=== PATIENT | female | born 1950 | race Caucasian/White ===

== ENCOUNTER → 2018-04-22 16:07 | Outpatient (CLI) | payer MEDICARE, OTHER, SELFPAY ==
[2018-04-22 17:21] LABS: Absolute Lymphocyte Count 0.64 X10^3/ul (0.83-4.51); Absolute Neutrophil Count 5.6 X10^3/uL (2.0-7.7); Basophil# 0.05 X10^3/uL; Basophil% 0.7 % (0-1); Eosinophils% 1.4 % (0-5); Hematocrit 37.4 % (37-47); Hemoglobin 12.2 g/dl (12.0-15.0); Lymphocyte # 0.64 X10^3/ul (4.0); Lymphocyte % 9.1 % (19-41); Mean Corp Hgb Conc 32.6 g/gl (32-36); Mean Corpuscular Hgb 30.8 pg (27.0-32.0); Mean Corpuscular Volume 94.4 fL (81-99); Mean Platelet Vol. 11.1 fl (6.2-12.0); Monocyte# 0.67 X10^3/uL; Monocyte% 9.5 % (0-10); Neutrophil # 5.55 X10^3/uL (2.7-7.7); Neutrophil % 79.2 % (47-70); POSITIVE COUNT NO; POSITIVE DIFFERENTIAL NO; POSITIVE MORPHOLOGY NO; Platelet Count 276 K/mm3 (150-450); RBC Distribution Width CV 14.3 % (11.6-14.6); RBC Distribution Width SD 47.9 fl (35.1-43.9); Red Blood Count 3.96 M/mm3 (4.2-5.4)
[2018-04-22 17:40] LABS: Anion Gap 4 (5-15); BUN 21 mg/dL (7-18); BUN/Creat Ratio 16.9 RATIO (10-20); Chloride 106 mmol/L (98-107); Creatinine, Serum 1.24 mg/dL (0.55-1.02); EST Glomerular Filtration Rate 46 mL/min (>60); Est Glom Filt Rate - Afr Amer 55 mL/min (>60); Glucose 89 mg/dL (74-106); Potassium 4.7 mmol/L (3.5-5.1); Sodium Level 138 mmol/L (136-145); Thyroid Stim Hormone (TSH) 1.61 uIU/mL (0.358-3.74)
== END ==
PROVIDERS: Visit Provider Family Medicine
DX: R42 Dizziness and giddiness (principal); I95.9 Hypotension, unspecified
CPT/HCPCS: 36415; 80048; 84439; 84443; 85025

== ENCOUNTER → 2019-05-31 15:59 | Outpatient (CLI) | payer MEDICARE, OTHER, SELFPAY ==
[2019-05-31 17:52] LABS: Absolute Lymphocyte Count 0.73 X10^3/uL (0.83-4.51); Absolute Neutrophil Count 5.3 X10^3/uL (2.0-7.7); Basophil# 0.06 X10^3/uL; Basophil% 0.9 % (0-1); Eosinophil# 0.18 X10^3/uL; Eosinophils% 2.6 % (0-5); Hematocrit 37.5 % (37-47); Hemoglobin 11.9 g/dL (12.0-15.0); Lymphocyte # 0.73 X10^3/ul (4.0); Lymphocyte % 10.5 % (19-41); Mean Corp Hgb Conc 31.7 g/dL (32-36); Mean Corpuscular Hgb 30.2 pg (27.0-32.0); Mean Corpuscular Volume 95.2 fL (81-99); Mean Platelet Vol. 10.8 fl (6.2-12.0); Monocyte# 0.63 X10^3/uL; Monocyte% 9.1 % (0-10); NRBC Flagged by Analyzer 0 % (0-5); Neutrophil # 5.32 X10^3/uL (2.7-7.7); Neutrophil % 76.6 % (47-70); Platelet Count 260 K/mm3 (150-450); RBC Distribution Width CV 14.3 % (11.6-14.6); RBC Distribution Width SD 49.9 fl (35.1-43.9); Red Blood Count 3.94 M/mm3 (4.2-5.4); White Blood Count 6.9 K/mm3 (4.4-11.0)
[2019-05-31 18:17] LABS: BNP,B-Type NATRIURETIC PEPTIDE 86.5 pg/mL (0-100)
[2019-05-31 18:18] LABS: AST(SGOT) 17 U/L (15-37); Alanine Aminotransfer ALT/SGPT 14 U/L (13-56); Albumin, Serum 3.5 g/dL (3.2-5.0); Alkaline Phosphatase 76 U/L (45-117); Anion Gap 6 (5-15); BUN 28 mg/dL (7-18); BUN/Creat Ratio 19.7 RATIO (10-20); Chloride 107 mmol/L (98-107); Creatinine, Serum 1.42 mg/dL (0.55-1.02); EST Glomerular Filtration Rate 39 mL/min (>60); Est Glom Filt Rate - Afr Amer 47 mL/min (>60); Globulin 3.4 g/dL (2.2-4.2); Glucose 85 mg/dL (74-106); Magnesium 2.5 mg/dL (1.6-2.6); Potassium 4.4 mmol/L (3.5-5.1); Protein, Total 6.9 g/dL (6.4-8.2); Sodium Level 138 mmol/L (136-145); T4 Free Direct 1.01 ng/dL (0.76-1.46)
== END ==
PROVIDERS: Family Provider Family Medicine; PCP Family Medicine; Referring Provider Family Medicine; Visit Provider Family Medicine
DX: R55 Syncope and collapse (principal); R53.83 Other fatigue; R06.00 Dyspnea, unspecified
CPT/HCPCS: 36415; 80053; 83735; 83880; 84439; 84443; 85025

== ENCOUNTER → 2019-07-14 15:22 | Outpatient (CLI) | payer MEDICARE, OTHER, SELFPAY ==
--- NOTE | 2019-07-14 15:35 | RAD_ITS ---
STUDY: X-RAY CHEST REASON FOR EXAM: Female, 69 years old. Shortness of breath and dizziness TECHNIQUE: PA and lateral views of the chest. COMPARISON: None. FINDINGS: There is a tiny calcified granuloma of the right mid lung field. There is no demonstrated pleural abnormality. Normal size heart. Normal mediastinum and maurice. Normal visualized pulmonary arteries. Normal visualized aortic arch and descending thoracic aorta. Normal visualized thoracic spine. Normal visualized ribs, clavicles, and shoulders. There is no demonstrated abnormality of the visualized soft tissue structures of the upper abdomen. RAD/Chest PA and Lateral IMPRESSION: Tiny calcified granuloma the right midlung field. No acute cardiopulmonary disease process is seen. Electronically Signed: Jaime Burk MD at 16:03 EDT , Service support ,
[2019-07-14 17:01] LABS: Anion Gap 5 (5-15); BUN 20 mg/dL (7-18); Calcium,Total 8.8 mg/dL (8.5-10.1); Chloride 107 mmol/L (98-107); Creatinine, Serum 1.25 mg/dL (0.55-1.02); EST Glomerular Filtration Rate 45 mL/min (>60); Est Glom Filt Rate - Afr Amer 54 mL/min (>60); Glucose 81 mg/dL (74-106); Potassium 4.3 mmol/L (3.5-5.1); Sodium Level 142 mmol/L (136-145)
== END ==
PROVIDERS: Family Provider Family Medicine; PCP Family Medicine; Referring Provider Family Medicine; Visit Provider Family Medicine
DX: N18.3 Chronic kidney disease, stage 3 (moderate) (principal); R06.00 Dyspnea, unspecified
CPT/HCPCS: 36415; 71046; 80048

== ENCOUNTER → 2019-07-27 13:21 | Outpatient (CLI) | payer MEDICARE, OTHER, SELFPAY ==
[2019-07-25 13:54] VITALS: BMI 42.8
[2019-07-27 16:01] LABS: AST(SGOT) 18 U/L (15-37); Alanine Aminotransfer ALT/SGPT 14 U/L (13-56); Albumin, Serum 3.4 g/dL (3.2-5.0); Alkaline Phosphatase 73 U/L (45-117); Bilirubin, Direct 0.12 mg/dL (0.00-0.30); Cholesterol 236 mg/dL (200); Globulin 3.3 g/dL (2.2-4.2); High Density Lipoprotein 82 mg/dL; Protein, Total 6.7 g/dL (6.4-8.2); Triglycerides 109 mg/dL; Very Low Density Lipoprotein 22 mg/dL (5-40)
== END ==
PROVIDERS: Family Provider Family Medicine; PCP Family Medicine; Referring Provider Internal Medicine Cardiovascular Disease; Visit Provider Internal Medicine Cardiovascular Disease
DX: Z13.220 Encounter for screening for lipoid disorders (principal)
CPT/HCPCS: 36415; 80061; 80076

== ENCOUNTER → 2019-08-08 14:49 | Outpatient (CLI) | payer MEDICARE, OTHER, SELFPAY ==
[2019-07-25 13:54] VITALS: BMI 42.8
--- NOTE | 2019-08-08 14:51 | ECHOD_ITS ---
Reason For Study: Dyspnea/SOB Procedure This was a 2D Doppler, Color Flow transthoracic echocardiogram. The study was technically difficult. Exam performed in department. Left Ventricle Moderate concentric left ventricular hypertrophy. The estimated ejection fraction is 60 %. Stage 1 diastolic dysfunction. No regional wall motion abnormalities noted. Right Ventricle Normal size and thickness. Normal systolic function. Atria Normal left atrium. Normal right atrium. Normal atrial septum. Mitral Valve The mitral valve is structurally normal. No prolapse or stenosis seen. Mild (1+) posteriorly directed mitral valve insufficiency. Tricuspid Valve Normal tricuspid valve. Unable to estimate RV systolic pressure due to insufficient tricuspid regurgitant envelope. Aortic Valve Normal aortic valve. Trisinus/trileaflet aortic valve. Pulmonic Valve The pulmonic valve is not well visualized. Great Vessels Normal aortic root. Normal arch. Normal inferior vena cava. Inferior vena cava collapse with sniff. Pericardium/Pleural No pericardial effusion. MMode/2D Measurements & Calculations LVIDd: 4.2 cm IVSd: 1.6 cm Ao root diam: 3.2 cm LVIDs: 2.8 cm LVPWd: 1.6 cm LA dimension: 3.6 cm RVDd: 2.9 cm FS: 34.0 % LAV(MOD-bp): 34.2 ml LVAd ap4: 29.5 cm2 SV(MOD-sp4): 60.9 ml LAV(MOD-bp) Indexed: 14.8 ml/m2 EDV(MOD-sp4): 94.2 ml LAV(MOD-sp2): 33.4 ml EDV(sp4-el): 97.4 ml LAV(MOD-sp4): 32.2 ml LVAs ap4: 15.5 cm2 ESV(MOD-sp4): 33.2 ml ESV(sp4-el): 33.2 ml EF(MOD-sp4): 64.7 % EF(sp4-el): 65.9 % SV(sp4-el): 64.2 ml LA A4 area: 13.8 cm2 RA A4 area: 14.6 cm2 Time Measurements MV dec time: 0.30 sec Doppler Measurements & Calculations MV A max romel: 93.0 cm/sec Lat Peak E' Romel: 7.1 cm/sec Med Peak E' Romel: 6.4 cm/sec MV V2 max: 92.8 cm/sec MV P1/2t max romel: 75.1 cm/sec Ao V2 max: 122.5 cm/sec MV max P.6 mmHg MV P1/2t: 74.2 msec Ao max P.0 mmHg MV V2 mean: 50.0 cm/sec Ao V2 mean: 78.5 cm/sec MV mean P.2 mmHg MV dec slope: 296.6 cm/sec2 Ao mean P.9 mmHg MV V2 VTI: 28.8 cm MVA(P1/2t): 3.0 cm2 Ao V2 VTI: 23.7 cm LV V1 max: 111.0 cm/sec PA V2 max: 97.3 cm/sec LV V1 max P.9 mmHg LV V1 mean P.1 mmHg LV V1 mean: 66.8 cm/sec LV V1 VTI: 24.4 cm Interpretation Summary Moderate concentric left ventricular hypertrophy. The estimated ejection fraction is 60 %. Stage 1 diastolic dysfunction. Mild (1+) posteriorly directed mitral valve insufficiency. Unable to estimate RV systolic pressure due to insufficient tricuspid regurgitant envelope. Compared to echo report dated 10/23/2015, no appreciable changes noted. Ordering Physician: Benedicto Sheehan Referring Physician: Brayden You Performed By: Sixto Echols RCS
== END ==
PROVIDERS: Family Provider Family Medicine; PCP Family Medicine; Referring Provider Internal Medicine Cardiovascular Disease; Visit Provider Internal Medicine Cardiovascular Disease
DX: R00.2 Palpitations (principal); R06.02 Shortness of breath; R42 Dizziness and giddiness; R53.83 Other fatigue; R55 Syncope and collapse; R06.00 Dyspnea, unspecified
CPT/HCPCS: 93306

== ENCOUNTER → 2019-08-17 12:11 | Outpatient (CLI) | payer MEDICARE, OTHER, SELFPAY ==
[2019-07-25 13:54] VITALS: BMI 42.8
== END ==
PROVIDERS: Family Provider Family Medicine; PCP Family Medicine; Referring Provider Internal Medicine Cardiovascular Disease; Visit Provider Internal Medicine Cardiovascular Disease
DX: R06.00 Dyspnea, unspecified (principal); R06.02 Shortness of breath; R53.83 Other fatigue; R00.2 Palpitations

== ENCOUNTER → 2019-08-31 13:14 | Outpatient (CLI) | payer MEDICARE, OTHER, SELFPAY ==
[2019-07-25 13:54] VITALS: BMI 42.8
== END ==
PROVIDERS: Family Provider Family Medicine; PCP Family Medicine; Referring Provider Internal Medicine Cardiovascular Disease; Visit Provider Internal Medicine Cardiovascular Disease
DX: R06.02 Shortness of breath (principal); Z77.098 Contact with and (suspected) exposure to other hazardous, chiefly nonmedicinal, chemicals

== ENCOUNTER → 2021-02-12 14:52 | Outpatient (CLI) | payer MEDICARE, OTHER, SELFPAY ==
[2021-02-12 14:52] VITALS: BMI 42.8
[2021-02-12 17:55] LABS: Absolute Neutrophil Count 4.5 X10^3/uL (2.0-7.7); Basophil# 0.08 X10^3/uL; Basophil% 1.3 % (0-1); Eosinophil# 0.18 X10^3/uL; Hematocrit 39.9 % (37-47); Hemoglobin 12.7 g/dL (12.0-15.0); Lymphocyte % 11.6 % (19-41); Mean Corp Hgb Conc 31.8 g/dL (32-36); Mean Corpuscular Hgb 30.1 pg (27.0-32.0); Mean Corpuscular Volume 94.5 fL (81-99); Mean Platelet Vol. 11.3 fl (6.2-12.0); Monocyte# 0.51 X10^3/uL; Monocyte% 8.5 % (0-10); NRBC Flagged by Analyzer 0 % (0-5); Neutrophil # 4.54 X10^3/uL (2.7-7.7); Neutrophil % 75.4 % (47-70); Platelet Count 314 K/mm3 (150-450); RBC Distribution Width CV 13.4 % (11.6-14.6); RBC Distribution Width SD 46.2 fl (35.1-43.9); Red Blood Count 4.22 M/mm3 (4.2-5.4)
[2021-02-12 18:12] LABS: Anion Gap 5 (5-15); BUN 21 mg/dL (7-18); BUN/Creat Ratio 17.1 RATIO (10-20); Calcium,Total 9.5 mg/dL (8.5-10.1); Chloride 104 mmol/L (98-107); Creatinine, Serum 1.23 mg/dL (0.55-1.02); EST Glomerular Filtration Rate 46 mL/min (>60); Est Glom Filt Rate - Afr Amer 55 mL/min (>60); Glucose 104 mg/dL (74-106); Potassium 4.3 mmol/L (3.5-5.1); Sodium Level 136 mmol/L (136-145)
== END ==
PROVIDERS: PCP Family Medicine; Referring Provider Family Medicine; Visit Provider Family Medicine
DX: N18.30 Chronic kidney disease, stage 3 unspecified (principal); M19.90 Unspecified osteoarthritis, unspecified site
CPT/HCPCS: 36415; 80048; 85025

== ENCOUNTER → 2021-06-30 15:08 | Outpatient (CLI) | payer MEDICARE, OTHER, SELFPAY ==
[2021-02-12 14:52] VITALS: BMI 42.8
--- NOTE | 2021-06-30 15:09 | BI_ITS ---
MAMMOGRAPHY - BILATERAL SCREENING 3-D TOMOSYNTHESIS REASON FOR EXAM: Female, 71 years old. SCREENING PERTINENT HISTORY: No significant family history. TECHNIQUE: 2-D mammograms and 3-D Tomosynthesis of the breast (s) were performed. CAD was performed. COMPARISON: 08/28/2016 FINDINGS: The breast composition is composed of scattered fibroglandular density. Scattered benign calcifications are seen. 8 mm oval obscured mass in the upper inner quadrant of the right breast and focal compression views regular for further evaluation. Grouped punctate calcifications in the lower inner quadrant of the left breast at posterior depth of magnification views recommended for further evaluation.. No architectural distortion is identified. There is no skin thickening or retraction. There has been no significant change since the prior study. BI/SCRN MAMM (CAD)W/JADEN BILAT IMPRESSION: 1. 8 mm oval obscured mass in the upper inner quadrant of the right breast and focal compression views recommended for further evaluation. 2. Grouped punctate calcifications in the lower inner quadrant of the left breast at posterior depth and magnification views recommended for further evaluation. ASSESSMENT CATEGORY: BIRADS Category 0: Incomplete. Need additional imaging evaluation as above. A letter regarding these results will be sent to the patient by the facility within 30 days. FOLLOW UP RECOMMENDATION: Additional imaging recommended as above. (E) Approximately 10% of breast cancers are not detected by mammography. A normal mammogram should not delay biopsy of a clinically suspicious abnormality. Electronically Signed: Gaston Elise MD at 18:15 EDT Tel , Service support ,
== END ==
PROVIDERS: PCP Family Medicine; Referring Provider Family Medicine; Visit Provider Family Medicine
DX: Z12.31 Encounter for screening mammogram for malignant neoplasm of breast (principal)
CPT/HCPCS: 77063; 77067

== ENCOUNTER → 2021-07-04 13:36 | Outpatient (CLI) | payer MEDICARE, OTHER, SELFPAY ==
--- NOTE | 2021-07-04 13:37 | BI_ITS ---
MAMMOGRAPHY - BILATERAL DIAGNOSTIC REASON FOR EXAM: Female, 71 years old. R BREAST MASS AND LT BREAST CALCIFCATION PERTINENT HISTORY: Non-contributory. TECHNIQUE: Digital examination. Mediolateral oblique (MLO) and craniocaudad (CC) views of both breasts were obtained. CAD: CAD was not performed on this study. COMPARISON: 06/30/2021 FINDINGS: Breast Composition: There are scattered areas of fibroglandular density. Focal compression views confirm a 1 cm oval indistinct equal density mass in the upper inner quadrant of the right breast at mid depth and ultrasound is recommended for further evaluation. Magnification views of the posterior central left breast confirm benign coarse calcifications and degenerating fibroadenoma. No other significant abnormalities are identified. BI/DIAG MAMM W/CAD, BILAT IMPRESSION: Further ultrasonographic evaluation recommended, as described above. ASSESSMENT CATEGORY: BIRADS Category 0: Incomplete. Need additional imaging evaluation. A letter regarding these results will be sent to the patient by the facility within 30 days. FOLLOW UP RECOMMENDATION: Ultrasound Recommended. (I) Approximately 10% of breast cancers are not detected by mammography. A normal mammogram should not delay biopsy of a clinically suspicious abnormality. Electronically Signed: Gaston Elise MD at 14:25 EDT Tel , Service support ,
--- NOTE | 2021-07-04 13:38 | US_ITS ---
STUDY: ULTRASOUND BREAST - RIGHT REASON FOR EXAM: Female, 71 years old. Abnormal screening mammogram. TECHNIQUE: Axial and longitudinal images of the RIGHT breast were performed with a high resolution ultrasound transducer. # OF IMAGES: 17 COMPARISON: Diagnostic mammogram earlier today, screening mammogram 06/30/2021 FINDINGS: RIGHT Breast: Heterogeneous background echotexture. At 1 o''clock, 3 cm in the portal, ultrasound confirms an 8 mm irregular not parallel spiculated hypoechoic mass with posterior shadowing worrisome for invasive ductal carcinoma and corresponding mass mammography and therefore ultrasound-guided vacuum-assisted core biopsy is recommended.: US/Breast Limited Unilateral IMPRESSION: Ultrasound confirms an 8 mm irregular not parallel spiculated hypoechoic mass worrisome for invasive ductal carcinoma and ultrasound-guided vacuum-assisted core biopsy is recommended. ASSESSMENT CATEGORY: BIRADS Category 4: Suspicious - Biopsy Should Be Considered. A letter regarding these results will be sent to the patient by the facility within 30 days. Electronically Signed: Gaston Elise MD at 14:54 EDT Tel , Service support ,
== END ==
PROVIDERS: PCP Family Medicine; Referring Provider Family Medicine; Visit Provider Family Medicine
DX: N63.12 Unspecified lump in the right breast, upper inner quadrant (principal); R92.1 Mammographic calcification found on diagnostic imaging of breast
CPT/HCPCS: 76642; 77066

== ENCOUNTER → 2021-07-17 | Outpatient (CLI) | payer MEDICARE, OTHER, SELFPAY ==
--- NOTE | 2021-07-17 | IMM_PTH ---
PATIENT: TWIN MARIE LOC: [facility] U#:[id number] AGE/SX: 71/F ROOM: RE07/17/[address]: Dr. Gwendolyn Mc MD : 1950 BED: DIS: 07/17/2021 SPEC #: [id number] RECD: 07/21/21 10:43 STATUS: KAROL REQ #: [id number] CHARLEY: 07/17/21 00:[address]: Gwendolyn Mc DEPT: IMMUNOHISTOCHEMISTRY RECD BY: Amrita Scott ENTERED: 07/21/21 10:44 SP TYPE: IMMUNO OTHR DR: Dr. Brayden You MD Tissues: Right breast, NOS Procedures: CALPONIN-1 (add) CK5-6 (add) CK8 (add) PARRA-2 (add) E-CAD (add) HER2 ALLYSSA (add) KI-67 (add) P53 (add) OH (add) P40 (add) ER (initial) PHYSICIAN & [address] [address] SPECIMEN INFORMATION: Tissue Source: Right breast mass, 1 o?clock, 3 cm from nipple Clinical Info: Right breast mass, 1 o?clock, 3 cm from nipple Specimen Number: [id number] CPT code: 12163, 56712 x7, 59736 x3 METHODOLOGY: Deparaffinized sections of prefer/formalin-fixed tissue or PAP/DQ stained slides are incubated with monoclonal/polyclonal antibodies/oligonucleotide probes. Localization is made via biotin free immunoperoxidase method. Appropriate controls are performed and reacted as expected. Results on target cell population are indicated in the following table: RESULTS: ANTIBODY / CLONE RESULT P53 (DO-7) negative Ki-67 (30-9) positive, 2% CK8 (41ebwyK80) positive CK5-6 (D5 & 1684) negative Calponin-1 (VJ084S) negative P40 (BC28) negative E-Cad (ECH-6) positive PARRA-2 (SP21) positive MORPHOMETRIC ANALYSIS ER (clone 6F11) >95%, strong intensity OH (clone 16/1E2) >95%, strong intensity Her-2Neu (clone CB11) 0 The prognostic test for HER2 is performed on formalin-fixed paraffin embedded tissue. A 3+ (positive) staining pattern is defined as intense, homogeneous, complete, circumferential membranous staining in >10% of contiguous tumor cells. A similar weak (2+) staining pattern is interpreted as equivocal. NIKOLAY follow-up testing is recommended for all equivocal cases. Positivity/negativity for ER/OH is reported if > or < 1% of the tumor cells are immuno- reactive, respectively. The ASCO/CAP criteria is used for scoring. Reference: Journal of Clinical Oncology, 2013; 31:6513-4168 & 2010; 16:8824-2185. Duration of fixation: 77 Hrs; Sample Adequate: Yes. These assays have not been validated on decalcified tissues. Results should be interpreted with caution given the likelihood of false negativity on decalcified specimens. These tests were developed and their performance characteristics determined by [facility]. They may not have been cleared or approved by the U.S. Food and Drug Administration. The FDA has determined that such clearance or approval is not necessary. The above immunohistochemical/dualISH markers are ordered and reviewed by the Pathologist. INTERPRETATION: Right breast mass, 1 o?clock, 3 cm from nipple, core biopsy: Invasive ductal carcinoma, nuclear grade 1. Positive for estrogen receptors (favorable prognostic indicator). Positive for progesterone receptors (favorable prognostic indicator). Negative for overexpression of [id number]. AM:bhumi 07/22/2021 Case has been reviewed in consultation with Dr. Billings who concurs with the above diagnosis. IDC:SJ
--- NOTE | 2021-07-17 13:40 | BRBX_PTH ---
PATIENT: TWIN MARIE LOC: [facility] U#:[id number] AGE/SX: 71/F ROOM: RE07/17/[address]: Dr. Gwendolyn Mc MD : 1950 BED: DIS: 07/17/2021 SPEC #: [id number] RECD: 07/17/21 15:30 STATUS: KAROL RERea #: [id number] CHARLEY: 07/17/21 13:[address]: Gwendolyn Mc DEPT: SURGICAL PATHOLOGY RECD BY: Dayana Brasher ENTERED: 07/18/21 11:51 SP TYPE: BREAST BX OTHR DR: Dr. Brayden You MD Tissues: Right breast, NOS Procedures: Surgery Specimen Level IV HEADER OPERATION: Right breast biopsy PRE-OP DIAGNOSIS: Right breast mass 1 o?clock, 3 cm from nipple TISSUE SUBMITTED: Right breast tissue 1 o?clock, 3 cm from nipple MICROSCOPIC DIAGNOSIS Right breast at 1 o?clock, core biopsy: Invasive ductal carcinoma with the following characteristics: Maximal length ? 1.5 millimeters Nuclear grade - 1 See comment. AM:bhumi 07/21/2021 COMMENT Immunohistochemistry ([id number]) supports the above diagnosis. Case has been reviewed in consultation with Dr. Billings who concurs with the above diagnosis. IDC:RICK MICROSCOPIC DESCRIPTION Slides are reviewed. GROSS DESCRIPTION Received in fixative is one container labeled with the patient name and designated right breast. The specimen consists of multiple elongated fragments of giraldo-yellow fibroadipose tissue that in aggregate measure 2 x 0.5 x 0.1 cm. The entire specimen is submitted in one cassette. / RICK:bhumi 07/18/21 TC:0 CPT: 45262
== END | disposition home or self-care (01) ==
LOC: LABSPEC 16:09
PROVIDERS: PCP Family Medicine; Referring Provider Surgery; Visit Provider Surgery
DX: N63.12 Unspecified lump in the right breast, upper inner quadrant (principal)
CPT/HCPCS: 88305; 88341; 88342

== ENCOUNTER 2021-08-15 08:11 | Day surgery (SDC) | payer MEDICARE, OTHER, SELFPAY ==
[2021-08-15] VITALS (7 sets, daily range): BP systolic 120–157; BP diastolic 56–101; PULSE 69–95; RESP 16–20; TEMP 36.2–36.7; O2SAT 96–100; BMI 40.5
--- NOTE | 2021-08-15 | IMM_PTH ---
PATIENT: TWIN MARIE LOC: [facility] [place] U#:[id number] AGE/SX: 71/F ROOM: RE08/15/[address]: Dr. Gwendolyn Mc MD : 1950 BED: DIS: 08/15/2021 SPEC #: [id number] RECD: 08/20/21 13:00 STATUS: KAROL REQ #: [id number] CHARLEY: 08/15/21 00:[address]: Gwendolyn Mc DEPT: IMMUNOHISTOCHEMISTRY RECD BY: Amrita Scott ENTERED: 08/20/21 13:01 SP TYPE: IMMUNO OTHR DR: Dr. Brayden You MD Tissues: A - Axillary lymph node, NOS B - Axillary lymph node, NOS Procedures: CK7 (add) Pankeratin (initial) Pankeratin (add) PHYSICIAN & INSTITUTION [place] [address] SPECIMEN INFORMATION: Tissue Source: A ? Right sentinel lymph node, biopsy, B ? Additional right sentinel lymph node, biopsy Clinical Info: Invasive ductal carcinoma of right breast Specimen Number: [id number] A1, A2, B CPT code: 33107 x2, 59047 x4 METHODOLOGY: Deparaffinized sections of prefer/formalin-fixed tissue or PAP/DQ stained slides are incubated with monoclonal/polyclonal antibodies/oligonucleotide probes. Localization is made via biotin free immunoperoxidase method. Appropriate controls are performed and reacted as expected. Results on target cell population are indicated in the following table: RESULTS: ANTIBODY / CLONE RESULT Block A1 AE1-3 (AE1/AE3/PCK26) negative CK7 (OV-TL12/30) negative Block A AE1-3 (AE1/AE3/PCK26) negative CK7 (OV-TL12/30) negative Block B AE1-3 (AE1/AE3/PCK26) negative CK7 (OV-TL12/30) negative These tests were developed and their performance characteristics determined by [facility]. They may not have been cleared or approved by the U.S. Food and Drug Administration. The FDA has determined that such clearance or approval is not necessary. The above immunohistochemical/dualISH markers are ordered and reviewed by the Pathologist. INTERPRETATION: A. Right sentinel lymph node, biopsy: One lymph node, negative for metastatic carcinoma. B. Additional right sentinel lymph node, biopsy: One lymph node, negative for metastatic carcinoma. RICK:bhumi 08/21/2021
--- NOTE | 2021-08-15 | AXNB_PTH ---
PATIENT: TIWN MARIE [place] [facility] [place][id number] AGE/SX: 71/F ROOM: RE08/15/[address]: Dr. Gwendolyn Mc MD : 1950 BED: DIS: 08/15/2021 SPEC #: [id number] RECD: 08/15/21 11:09 STATUS: KAROL REQ #: [id number] CHARLEY: 08/15/21 00:[address]: Gwendolyn Mc DEPT: SURGICAL PATHOLOGY RECD BY: Amrita Scott ENTERED: 08/15/21 11:50 SP TYPE: AX NODE BX OTHR DR: Dr. Brayden You MD Tissues: A - Axillary lymph node, NOS B - Axillary lymph node, NOS C - Right breast, NOS Procedures: Frozen Section (charge) Frozen Section Add'l ([facility]) Surgery Specimen Level V HEADER OPERATION: Ultrasound-guided wire localized lumpectomy with radiotracer PRE-OP DIAGNOSIS: Invasive ductal carcinoma of right breast TISSUE SUBMITTED: A ? [place] node, B - Additional sentinel node, C ? Right breast lumpectomy FROZEN SECTION DIAGNOSIS A. Right sentinel lymph node, biopsy: One lymph node, negative for metastatic carcinoma. B. Additional right sentinel lymph node, biopsy: One lymph node, negative for metastatic carcinoma. RICK:bhumi 08/15/2021 MICROSCOPIC DIAGNOSIS A. Right sentinel lymph node, biopsy: One lymph node, negative for metastatic carcinoma. See comment. B. Additional right sentinel lymph node, biopsy: One lymph node, negative for metastatic carcinoma. See comment. C. Right breast, lumpectomy with needle localization: Invasive ductal carcinoma. See cancer summary in the comment section. RICK:bhumi 08/20/2021 COMMENT A & B. The lymph nodes are negative for metastatic carcinoma on multiple H & E levels and immuno-histochemical stains for cytokeratins ([id number]). BREAST CANCER SUMMARY Procedure ? lumpectomy with needle localization Specimen laterality ? right Invasive tumor: Tumor site ? 1 o?clock, 3 cm from nipple, as per clinical information Tumor size ? 1 x 1 x 0.8 cm Histologic type ? invasive ductal carcinoma, not otherwise specified Histologic grade ([place] grade): Glandular/tubular differentiation score - 1 Nuclear pleomorphism score - 1 Mitotic count score - 1 Overall grade ? grade 1 (score of 3) Tumor focality ? single focus of invasive carcinoma Ductal carcinoma in situ ? present Negative for extensive intraductal component (EIC). Size (extent) of DCIS ? DCIS comprise <5% of total tumor volume Number of blocks with DCIS ? 2 Number of blocks examined ? 12 Architectural pattern ? cribriform Nuclear grade ? grade 1 Necrosis ? not identified Lobular carcinoma in situ ? not present Tumor extension: Skin ? not present Nipple ? not applicable Skeletal muscle ? no skeletal muscle is present. Margins: Invasive ductal carcinoma and ductal carcinoma in situ are 0.5 cm away from the closest posterior and inferior margin. Regional lymph nodes: Number of lymph nodes examined ? 2 Number of sentinel lymph nodes examined - 2 Number of lymph nodes with macrometastases, micrometastases or isolated tumor cells - 0 Treatment effect ? no known presurgical therapy. Lymphvascular invasion ? not identified Dermal lymphvascular invasion ? not applicable Distant metastasis ? not applicable Additional Pathologic Findings ? intraductal hyperplasia without atypia. Changes consistent with previous site. Ancillary Studies: Previously performed on same tumor ([id number] / [id number]) ER: positive (>95%, strong intensity) [place]: positive (>95%, strong intensity) [id number]: negative (0) Microcalcifications ? present in invasive carcinoma Clinical History - Please make reference to previous specimen ([id number]) right breast at 1 o?clock, core biopsy with diagnosis of ?invasive ductal carcinoma.? PATHOLOGIC STAGE: pT1b pN0(sn) pMx The above summary is in compliance with [employer] [place] [employer] (CAP) Cancer Protocols Checklist and [place] [employer] Committee on Cancer (AJCC), Staging Manual, 8th Ed. This case has been reviewed in consultation with Dr. Arguello who concurs with the above diagnosis. MICROSCOPIC DESCRIPTION Slides are reviewed. GROSS DESCRIPTION A - Received fresh for frozen section diagnosis labeled with the patient's name is a specimen designated sentinel lymph node. The specimen consists of a piece of adipose tissue containing one nodule consistent with lymph node measuring 3 x 2 x 1 cm. The specimen is bisected and submitted entirely for frozen section diagnosis in two cassettes. / : 08/15/21 B - Received fresh for frozen section diagnosis labeled with the patient's name is a specimen designated additional sentinel lymph node. The specimen consists of a piece of adipose tissue containing one nodule consistent with lymph node measuring 1.5 x 1.2 x 1 cm. The specimen is bisected and submitted entirely for frozen section diagnosis in one cassette. / : 08/15/21 C - Received fresh for intraoperative consultation labeled with the patient's name and designated right breast lumpectomy. The specimen consists of a piece of fibroadipose tissue with needle localization measuring 5 x 4.5 x 2 cm. The specimen is oriented as follows: long stitch ? lateral, short stitch ? superior. The specimen is inked as follows: anterior - yellow, posterior - black, superior - blue, inferior - green, medial - red and lateral - orange. Serial sections reveal a giraldo, indurated mass measuring 1 x 1 x 0.8 cm. This mass is 0.5 cm away from the closest inferior margin. This information is conveyed to the surgeon intraoperatively. Sections of the rest of the specimen reveal giraldo-yellow adipose cut surfaces mixed with giraldo-white fibrous areas. The entire specimen is submitted in 12 cassettes. Cassettes 3-6 contains the tumor adjacent tissue. Sections are submitted after additional fixation. / : 08/18/21 TC:0 CPT: 52827 x3, 81404, 16075 x2, 39967
--- NOTE | 2021-08-15 08:30 | NM_ITS ---
PROCEDURE: NUCLEAR MEDICINE Injection [place] Node - RIGHT breast(s). REASON FOR EXAM: Female, 71 years old. Right breast cancer. TECHNIQUE: [place] node localization using radionuclide methods of the RIGHT breast(s) was performed following subcutaneous administration of 1.2 mCi of of sulfur colloid Tc-99m. FINDINGS: 1.2 mCi of technetium labeled sulfur colloid was injected subcutaneously in 4 equal aliquots in the medial periareolar region. NM/Lymph Node Injection Only IMPRESSION: 1.2 mCi of technetium labeled sulfur colloid injected subcutaneously in 4 equal aliquots in the medial periareolar region. Electronically Signed: Jose Carias MD at 11:09 EDT , Service support ,
[2021-08-15] MEDS: Lactated Ringers 1,000 ML 100 ML IV (08:50)
--- NOTE | 2021-08-15 09:28 | PCM.HP.BLA ---
History and Physical Date of Admission: 08/15/21 Date of Service: 08/07/21 Intake Vital Signs 08/07/21 13:30 Height 5 ft 8 in Weight: 262 lb BMI 39.8 BP 149/92 H Blood Pressure Location Rt brachial Position Sitting Respiration 20 H Pulse 90 Pulse Source Monitor Temp 97.4 F L Temp Source Temporal Pulse Oximetry (%) 97 Oxygen Delivery Method room air Intake Visit Reasons: DISCUSS SURGERY Chief Complaint: discuss breast surgery Vacuum Tester Cans Required: No Is patient in pain?: No Allergies amoxicillin Allergy (Verified 08/07/21 13:32) Hives ketorolac tromethamine [From Toradol] Allergy (Verified 08/07/21 13:32) Unknown pentazocine lactate [From Talwin] Allergy (Verified 08/07/21 13:32) Unknown Medications hydrocodone-acetaminophen 1 tab PO TID 10/13/15 [History Confirmed 08/07/21] amitriptyline 25 mg tablet 25 mg PO QHS 07/19/19 [History Confirmed 08/07/21] ibuprofen 200 mg tablet 400 mg PO TID tab 07/25/19 [History Confirmed 08/07/21] PFSH Medical History Breast cancer Dizziness Fatigue Lightheadedness Palpitations Pre-syncope SOB (shortness of breath) on exertion Surgical History History of right breast biopsy (~07/2021) History of total right knee replacement (~08/2004) Family History Mother Uterine cancer Sister Uterine cancer Father , age 43 coronary thrombosis CAD (coronary artery disease) Myocardial infarction Grandmother Diabetes Social History Smoking Status: Never smoker HPI HPI HPI: TWIN MARIE, is a 71 F who presents to the office today for further discussion of surgical options for right invasive ductal carcinoma. Patient is planning to proceed with a lumpectomy. Patient currently on pain meds ibuprofen, Vicodin, Elavil due to back pain. ROS Breast Breast: Yes abnormal mammogram and abnormal US; No left breast lump, right breast lump or nipple discharge Exam Const General: cooperative, healthy appearing, comfortable and no acute distress Neck Neck: normal visual inspection Chest Other: Inspection: Symmetric bilaterally, bilateral breast with fibroglandular tissue, no obvious mass on exam in either breast or nipple discharge or change of overlying skin. biopsy site on the right well healed. Bedside ultrasound able to visualize mass. Resp Effort & Inspection: normal respiratory effort Cardio Rate: regular rate GI Inspection: non-distended Palpation: soft, no guarding and nontender Skin General: no rashes or lesions noted Neuro General: patient oriented x3 Psych Affect: normal affect COVID (Procedure Consent) Procedure Criteria Procedure Criteria: Yes Elective The surgeon/proceduralist and patient have discussed in detail the risk of exposure to and/or potential harm posed by the COVID-19 virus with having a surgery/procedure at this time versus the risk of delaying the surgery/procedure. It is not possible to know either the risk of delaying the surgery or procedure or chance of getting an infection with perfect accuracy, but a joint decision was made between the patient and the surgeon/proceduralist to proceed at this time with the scheduled surgery/procedure as indicated on the consent form. Assessment and Plan Assessment and Plan (1) Invasive ductal carcinoma of right breast: Status: Acute Plan - Dr. Gwendolyn Mc MD: I have given the patient options for initial surgical treatment. Options are the following: lumpectomy followed by radiation therapy vs. mastectomy vs. mastectomy followed by immediate reconstruction. I have described the procedures to the patient. I have described the advantages and disadvantages of the options, but I have told the patient that among the options, the survival rate for breast cancer is the same. I have told the patient that with all the surgeries that a sentinel lymph node biopsy is required. I have described the procedure of sentinel lymph node biopsy to the patient. I have told the patient that if the biopsy is positive for metastatic disease, then a full axillary lymph node dissection is required. I have told the patient that adjuvant chemotherapy will be required should the lymph nodes reveal metastatic disease. Also, a full lymph node dissection will increase the risk for lymphedema, especially if there are 4 or more lymph nodes positive for metastatic disease and radiation to the axilla is also required. I have told the patient the risks of surgery, including but not limited to: infection, bleeding, scar tissue, seroma and persistent seroma, lymph leak, injury to any blood vessels, injury to any nerves (particularly the long thoracic, the thoracodorsal, and the second intercostal brachial and the resultant sequelae), lymphedema, cosmetic deformity, dysesthesias, wound infections, further surgery (especially if margins are not clear), complications of anesthesia, etc. the patient understands. Patient has already met with Dr. Bolden and would like to proceed with a right ultrasound-guided needle localization lumpectomy, right sentinel lymph node biopsy, possible axillary lymph node biopsy. I have answered all the patient?s questions at this point to her satisfaction and she has no further questions. Greater than 50% of direct patient contact was spent in counseling or coordination of care. I spent 25 minutes counseling the patient-surgical options and possible additional treatment after surgery and coordinating care. Gwendolyn Mc M.D. Pager: [phone] [facility] [address] [place] [address], [address] [place] [address] Office: [phone] Coding Level of Care Code Off vis,est,level 4 Diagnoses Invasive ductal carcinoma of right breast C50.911 08/07/21 1411<Electronically signed by Gwendolyn Mc MD>Date Gwendolyn Mc MD
[2021-08-15] MEDS: Isosulfan Blue 1% 5 ML Vial OPERA.SITE (10:30)
--- NOTE | 2021-08-15 11:37 | BI_ITS ---
SURGICAL BREAST SPECIMEN RADIOGRAPH CLINICAL: Document presence of tissue clip marker in biopsy specimen. FINDINGS: Specimen shows presence of tissue clip marker. Electronically Signed: Jose Carias MD at 12:16 EDT , Service support , BI/Breast Biopsy Specimen
--- NOTE | 2021-08-15 11:40 | PCM.OPRPT ---
Report of Operation Date of Procedure: 08/15/21 Pre-Operative Diagnosis: Right breast cancer Post-Operative Diagnosis: Same Surgery/Procedure Performed:: Ultrasound guided wire localization right lumpectomy, sentinel lymph node biopsy with nuclear tracer and Lymphazurin. Description of Surgical Findings:: 2 frozen sentinel nodes negative Surgeon: Gwendolyn Mc Type of Anesthesia: General/Supplemental Anesthesiologist: Bijan Pollack Special Medications: Clindamycin 900 mg IV x1 Specimen's removed: 1. [place] right lymph node, 2. Additional sentinel right lymph node, 3. Right lumpectomy Estimated Blood Loss (mL): < 10 cc Description of Procedure: In radiology the breast tissue was injected with TC-9 9 sulfur colloid. 90 minutes later the patient was taken to the operating room and general anesthesia was induced. 5 cc of Lymphazurin 1% blue dye was injected in the 4 quadrants periareolar along with 10 cc of normal saline. This was massaged gently for 5 minutes. The right breast and axilla were prepped and draped in usual sterile fashion. A timeout was completed verifying correct patient, procedure, site, positioning, special equipment prior to beginning procedure. Handheld gamma probe was used to identify the location of the hottest spot in the axilla. Prior to the incision, the counts were 30. The incision was made in the hot and blue node was identified. The probe was placed in contact with the node in the 10 count was 3840, additional hot and blue node was also found with a 10 count of 1959. The bed of the node measured 8 counts. No additional blue or hot nodes were detected. A curvilinear incision was planned in such a way as to minimize the amount of dissection to reach the mass. Flaps were raised in the location of the wire confirmed. The wire was delivered into the wound. 2 silk [id number] stay suture was placed around the wire and used for traction. Dissection was then taken down circumferentially, taking care to include the entire localization needle and wide margin of grossly normal tissue. The specimen and entire localizing wire were removed. The specimen was oriented and sent to radiology with the localization studies. Confirmation was received that the entire target lesion had been resected. The wound was irrigated. Hemostasis was checked. The breast and axillary wounds were closed with interrupted sutures of 3-0 Vicryl and subcuticular sutures of 4-0 Monocryl and Dermabond. No attempt was made to close the space. A dressing of fluff gauze and supportive bra placed. The patient tolerated procedure well was taken to the postanesthesia care in stable condition. Complications none
--- NOTE | 2021-08-15 11:43 | EX.PCM.DISCH ---
Discharge Instructions Procedure Breast Surgery Diet Discharge Diet: No restrictions Activity Discharge Activity: May Not Drive (for 2-3 days or while taking narcotic pain meds.) May shower in (days): 1 Lifting Restrictions: 10 pounds for 1 week. Dressing / Incision Call your doctor if your incision/area has: Continuous Slow Oozing, Sudden Increased Bleeding, Increased Pain/ Swelling and Increased Redness Call your doctor if you observe: Fever of 101 or Higher Suture Line Care: Avoid Pulling/Pushing and Avoid Pinching/Bending Remove Dressing in: 1 day Additional Dressing/Incision Instructions:: Remove bulky dressing tomorrow. Dermabond/glue will start to fall off in 5 to 7 days, wear good supportive bra initially at night and during the day. Follow Up Care Please Follow Up With: Gwendolyn Mc MD When: Please call [phone] for an appointment to be seen in 2 week. Test Results: Test results from this visit will be discussed in further detail at your follow-up appointment, if applicable. Discharge Plan Admission Attending Provider: Gwendolyn Mc Primary Care Provider: Brayden You Discharge Orders/Prescriptions Prescriptions: Continued amitriptyline 25 mg tablet 25 mg PO QHS RF: 0 ibuprofen 200 mg tablet 400 mg PO TID RF: 0 Changed hydrocodone-acetaminophen 1 EACH tablet 1 tab PO Q6H 3 Days Qty: 9 RF: 0 Referrals / Follow Up: Brayden You MD [Primary Care Provider] - Disposition Disposition (needs filled in before D/C Order can be placed): Home, Self Care
[2021-08-15] MEDS: Bupivacaine Mpf 0.5% 30 ML VIAL (11:46)
== END 2021-08-15 14:00 | disposition home or self-care (01) ==
LOC: SDC 08:12 → AC 08:12
PROVIDERS: PCP Family Medicine; Referring Provider Surgery; Visit Provider Surgery
PROC: 0HBV0ZZ Excision of Bilateral Breast, Open Approach (ICD-10-PCS; CPT 19302; principal; 2021-08-15 09:50)
DX: C50.911 Malignant neoplasm of unspecified site of right female breast (principal); N18.30 Chronic kidney disease, stage 3 unspecified; M19.90 Unspecified osteoarthritis, unspecified site; E66.01 Morbid (severe) obesity due to excess calories; Z68.41 Body mass index [BMI] 40.0-44.9, adult; Z79.1 Long term (current) use of non-steroidal anti-inflammatories (NSAID); Z79.899 Other long term (current) drug therapy; Z96.651 Presence of right artificial knee joint
CPT/HCPCS: 01610; 19301; 38525; 38900; 38792; 76098; 88305; 88307; 88331; 88332; 88341; 88342; A9541; J7120; A4216; J2405; Q9968

== ENCOUNTER → 2021-10-07 14:25 | Outpatient (CLI) | payer MEDICARE, OTHER, SELFPAY ==
--- NOTE | 2021-10-07 14:33 | BD_ITS ---
STUDY: DUAL ENERGY X-RAY ABSORPTIOMETRY / DXA REASON FOR EXAM: Female, 71 years old. SCREENING TECHNIQUE: Bone Mineral Density (BMD) measurements of lumbar spine and bilateral hips were obtained. COMPARISON: None. FINDINGS: Lumbar Spine (L1-L4): g/cm2 (0.753) / T-score (-2.7) / Z-score (-0.4) Findings are suggestive of osteoporosis with a high fracture risk. Left Femur Total: g/cm2 (0.671) / T-score (-2.2) / Z-score (-0.5) Left Femoral Neck: g/cm2 (0.471) / T-score (-3.4) / Z-score (-1.4) Right Femur Total: g/cm2 (0.592) / T-score (-2.9) / Z-score (-1.2) Right Femoral Neck: g/cm2 (0.417) / T-score (-3.9) / Z-score (-1.9) BD/Dexa Bone Density Study IMPRESSION: The patient is considered osteoporotic as outlined below according to World Fito Organization (WHO) criteria with a high fracture risk. Reference Information: The T-score is the number of standard deviations above or below the standard which is normal for young adults at their peak bone mineral density. The World Health Organization (WHO) interprets the T-scores as follows: Above -1 Normal bone density Between -1 and -2.5 Osteopenia Equal to / or below -2.5 Osteoporosis As a practical clinical guideline, osteopenia may be graded as follows: Mild -1 through -1.5 Moderate -1.6 through -2.0 Severe -2.1 through -2.4 The Z-score is the number of standard deviations above or below age-matched controls. A Z-score of less than -1.5 would be considered abnormal. References: 1. NIH Osteoporosis and Related Bone Diseases www osteo.org 2. International Society for Clinical Densitometry www iscd.org 3. National Osteoporosis Foundation www nof.org Electronically Signed: Jose Carias MD at 15:19 EST , Service support ,
== END ==
PROVIDERS: PCP Family Medicine; Referring Provider Internal Medicine Medical Oncology; Visit Provider Internal Medicine Medical Oncology
DX: M81.0 Age-related osteoporosis without current pathological fracture (principal); C50.911 Malignant neoplasm of unspecified site of right female breast; Z78.0 Asymptomatic menopausal state
CPT/HCPCS: 77080

== ENCOUNTER → 2022-07-07 | Outpatient (CLI) | payer MEDICARE, OTHER, SELFPAY ==
--- NOTE | 2022-07-07 14:24 | BI_ITS ---
MAMMOGRAPHY - BILATERAL DIAGNOSTIC REASON FOR EXAM: Female, 72 years old. Treated right breast cancer, compare to prior PERTINENT HISTORY: P/H OF BREAST CA AGE 71 NO CHILDREN F/U CA TREATMENT LEFT STEREO BX 2002 BILAT MOLES MARKED 07/04/21 BILAT DX MAMM= INCOMP 07/04/21 RT U/S= S 07/17/21 RT U/S BX 08/15/21 RT LUMPECOMY W/ RAD TX TECHNIQUE: Digital bilateral breast frederic (3D mammographic acquisition) in the CC and MLO projections. 2-D mediolateral oblique (MLO) and craniocaudad (CC) views of both breasts were obtained. CAD: Full Field Digital Mammography with Computer Added Detection was performed. COMPARISON: None. FINDINGS: Breast Composition: There are scattered areas of fibroglandular density. The previously described 8 mm oval mass in the upper inner quadrant of the right breast is no longer seen. Radiation therapy seeds are noted at the site. No other significant abnormalities are identified. BI/DIAG MAMM W/CAD, BILAT IMPRESSION: Resolved previously described mass in the upper inner quadrant of the right breast. No new lesions are seen. ASSESSMENT CATEGORY: BIRADS Category 3: Probably Benign . Resolved mass in the right breast - Short-Interval Follow-up Suggested. A letter regarding these results will be sent to the patient by the facility within 30 days. Approximately 10% of breast cancers are not detected by mammography. A normal mammogram should not delay biopsy of a clinically suspicious abnormality. Electronically Signed: Juan R Mcgowan MD at 16:34 EDT ,
== END | disposition home or self-care (01) ==
LOC: OPBI 14:18
PROVIDERS: PCP Family Medicine; Visit Provider Student in an Organized Health Care Education/Training Program
DX: C50.911 Malignant neoplasm of unspecified site of right female breast (principal); Z85.3 Personal history of malignant neoplasm of breast
CPT/HCPCS: 77062; 77066; G0279

== ENCOUNTER 2022-09-23 06:49 | Day surgery (SDC) | payer MEDICARE, OTHER, SELFPAY ==
[2022-09-23] MEDS: Lactated Ringers 1,000 ML 15 ML IV (06:55)
[2022-09-23 07:18] VITALS: BP 164/75; PULSE 81; RESP 20; TEMP 36.7; O2SAT 100; BMI 38.9
--- NOTE | 2022-09-23 07:33 | H&P.OPEN ---
HPI - General HPI Narrative TWIN MARIE, is a 72 F who presents for screening colonoscopy. Patient never had previous colonoscopy. Patient denies any family history of colon cancer. Patient denies any chronic abdominal pain/nausea/reflux/vomiting. Patient has bowel movements about every other day denies any blood. [facility] Medical History (Updated 09/21/22 @ 08:56 by Cele Gallagher) Ambulates with cane Arthritis Back pain Breast cancer Cancer Cardiology follow-up encounter Dizziness Easy bruising Fatigue History of echocardiogram History of edema History of pain when walking Lightheadedness Morbid obesity Non-smoker Osteoarthritis Phlebitis Pre-syncope Restless legs Shortness of breath on exertion SOB (shortness of breath) on exertion Vulvar cancer Wears glasses Home Medications amitriptyline 25 mg tablet 25 mg PO QHS 07/19/19 [History Last Taken Unknown] ibuprofen 200 mg tablet 400 mg PO TID 07/25/19 [History Last Taken Unknown] hydrocodone 7.5 mg-acetaminophen 325 mg tablet 1 tab PO PRN PRN Pain 09/21/22 [History Last Taken Unknown] Allergy/AdvReac Type Severity Reaction Status Date / Time amoxicillin Allergy Hives Verified 09/23/22 07:18 ketorolac tromethamine Allergy Unknown Verified 09/23/22 07:18 [From Toradol] pentazocine lactate Allergy Unknown Verified 09/23/22 07:18 [From Talwin] Family History Mother Uterine cancer Sister Uterine cancer Colon polyps Father , age 43 coronary thrombosis CAD (coronary artery disease) Myocardial infarction Grandmother Diabetes Surgical History (Updated 09/21/22 @ 08:56 by Cele Gallagher) H/O vein stripping History of right breast biopsy (~07/2021) History of total hysterectomy (11/2009) History of total right knee replacement (~08/2004) Hx of breast biopsy Hx of breast lump removal Hx of hysterectomy Hx of vein stripping S/P lumpectomy, right breast Social History current occupational status: retired Smoking Status: Never smoker Past Medical/Surgical History Planned Operation Planned Operative Procedure/s: CSCOPE 0A Previous Hospitalizations/Surgeries HX Hospitalizations: No Any Problems With Anesthesia: No You/Your Family Experience Fever (Hyperthermia) With Anes: No Cholinesterase deficiency: No Cardiovascular Hx of Irregular Heartbeat and/or Afib: No Hx Heart Attack: No Hx Congestive Heart Failure: No Hx Hypertension: No Hx Pacemaker: No Respiratory Hx Chronic Obstructive Pulmonary Disease (COPD): No Hx Asthma: No Hx Emphysema: No Hx Sleep Apnea: No Hx Respiratory Tract Infection/Cold (presently): No Do You Snore Loudly (louder than talking or can be heard): No Do You Often Feel Tired/ Fatigued/ Sleepy Dring Daytime?: Yes Has Anyone Observed You Stop Breathing During Sleep?: No Result (for STOP score): Negative Smoking Status: Never smoker Gastrointestinal Hx Gastroesophageal Reflux: No Hx Ulcer: No Neurological Hx Seizures: No Hx Multiple Sclerosis: No Hx Parkinson's Disease: No Hx Head/Neck Injury: No Hx Headaches: No Hx Back Injury/Pain: Yes Does patient have nerve stimulator: No Reproduction : No Psycho/Social Hx Anxiety: Yes Hx Depression: Yes Miscellaneous Hx Cancer: Yes Recent Exposure to Contagious Disease: No Allergies amoxicillin Allergy (Verified 09/23/22 07:18) Hives ketorolac tromethamine [From Toradol] Allergy (Verified 09/23/22 07:18) Unknown pentazocine lactate [From Talwin] Allergy (Verified 09/23/22 07:18) Unknown Discharge Is Pt Admitted From a Longterm, or a Correction: No After D/C, Where Do you Plan to Go: Return Home From the PAT History Number of Risk Factors: 3 Vital Signs Vital Signs Vital Signs: 09/23/22 07:18 09/23/22 07:18 Temperature 98.0 F Temperature Source Temporal Pulse Rate 81 Respiratory Rate 20 H Respiratory Pattern Normal Blood Pressure 164/75 H Blood Pressure Mean 104 Blood Pressure Source Monitor Blood Pressure Position Semi-Fowlers Blood Pressure Location Left Arm Pulse Ox 100 Oxygen Delivery Method Room Air Weight Weight: 255 lb 11.779 oz Body Mass Index (BMI) 38.9 Physical Exam Const alert, oriented x3 and no apparent distress HEENT normocephalic and head/scalp atraumatic Resp normal respiratory effort Cardio regular rate GI soft to palpation and non-tender; Negative for non-distended Palpation: Negative for guarding Extremity no clubbing, cyanosis or edema Neuro CN's II-XII intact bilaterally Psych mental status grossly normal Assessment & Plan Assessment/Plan (1) Encounter for screening for malignant neoplasm of colon: Surgery Risks - Colonoscopy Risks Include but are not Limited To: Risks include but are not limited to: Bleeding, perforation requiring further surgery, inability to complete colonoscopy requiring barium enema.
--- NOTE | 2022-09-23 08:00 | COLBX_PTH ---
PATIENT: TWIN MARIE LOC: EN U#:[id number] AGE/SX: 72/F ROOM: RE09/23/[address]: Dr. Gwendolyn Mc MD : 1950 BED: DIS: 09/23/2022 SPEC #: [id number] RECD: 09/23/22 10:34 STATUS: KAROL RERea #: [id number] CHARLEY: 09/23/22 08:[address]: Gwendolyn Mc DEPT: SURGICAL PATHOLOGY RECD BY: Dayana Brasher ENTERED: 09/23/22 11:13 SP TYPE: COLON BX OTHR DR: Dr. Brayden You MD Tissues: A - Sigmoid colon biopsy B - Rectum, NOS Procedures: Surgery Specimen Level IV HEADER OPERATION: Colonoscopy ? open access (MAC), biopsy PRE-OP DIAGNOSIS: Screening TISSUE SUBMITTED: A ? Sigmoid polyp biopsy, B ? Rectal polyp biopsy MICROSCOPIC DIAGNOSIS A. Sigmoid polyp, biopsy: Fragments of hyperplastic polyp. B. Rectal polyp, biopsy: Fragments of hyperplastic polyp. RICK:bhumi 09/25/2022 MICROSCOPIC DESCRIPTION Slides are reviewed. GROSS DESCRIPTION A - Received in fixative is one container labeled with the patient's name and designated sigmoid polyp biopsy. The specimen consists of two irregular fragments of light giraldo soft tissue that in aggregate measure 0.5 x 0.2 x 0.1 cm. The specimen is totally submitted in one cassette. B - Received in fixative is one container labeled with the patient's name and designated rectal polyp biopsy. The specimen consists of two irregular fragments of light giraldo soft tissue that in aggregate measure 0.5 x 0.2 x 0.1 cm. The specimen is totally submitted in one cassette. / RICK:bhumi 09/23/2022 TC:1 CPT: 71140 x2
[2022-09-23 09:15] VITALS: BP 114/66; BP 164/75; PULSE 69; RESP 16; TEMP 36.2; O2SAT 97
--- NOTE | 2022-09-23 09:15 | OP.CCLET_ITS ---
09/23/2022 Brayden You Re : Colonoscopy procedure for Deana Reyes Dear Avelino This procedure was performed on Friday, September 23, 2022. My impressions and recommendations are as follows: Impressions : - Two less than 5 mm polyps in the rectum and in the sigmoid colon, removed with a cold biopsy forceps. Resected and retrieved. - The examination was otherwise normal. Recommendations : - Discharge patient to home. - Resume previous diet. - Continue present medications. - Await pathology results. - Repeat colonoscopy in 5-10 years for surveillance based on pathology results. My findings are described in the full procedure note, which is enclosed. If I can be of further assistance, please feel free to contact me at Doctor phone number(s): , Work: . Sincerely, MD Gwendolyn Holt MD 09/23/2022 9:14:59 AM This report has been signed electronically.
--- NOTE | 2022-09-23 09:15 | OP.COLON_ITS ---
Patient Name: Deana Reyes Procedure Date: 09/23/2022 8:31 AM Date of : 1950 Age: 72 Procedure: Colonoscopy Indications: Screening for colorectal malignant neoplasm Providers: Gwendolyn Mc MD Medicines: Monitored Anesthesia Care Patient Profile: This is a 72 year old female. Last Colonoscopy: none. The patient's first colonoscopy is today. Complications: No immediate complications. Procedure: Pre-Anesthesia Assessment: - Prior to the procedure, a History and Physical was performed, and patient medications and allergies were reviewed. The patient's tolerance of previous anesthesia was also reviewed. The risks and benefits of the procedure and the sedation options and risks were discussed with the patient. All questions were answered, and informed consent was obtained. Prior Anticoagulants: The patient has taken no previous anticoagulant or antiplatelet agents. ASA Grade Assessment: Per anesthesia. After reviewing the risks and benefits, the patient was deemed in satisfactory condition to undergo the procedure. After I obtained informed consent, the scope was passed under direct vision. Throughout the procedure, the patient's blood pressure, pulse, and oxygen saturations were monitored continuously. The Colonoscope was introduced through the anus and advanced to the cecum, identified by the appendiceal orifice, ileocecal valve and palpation. The colonoscopy was performed without difficulty. The patient tolerated the procedure well. The quality of the bowel preparation was good. Scope In: 8:45:35 AM Scope Withdrawal Time 0 hours 13 minutes 0 seconds Scope Out: 9:09:58 AM Total Procedure Duration Time 0 hours 24 minutes 23 seconds Findings: The perianal and digital rectal examinations were normal. Two sessile polyps were found in the rectum and sigmoid colon. The polyps were less than 5 mm in size. These polyps were removed with a cold biopsy forceps. Resection and retrieval were complete. The exam was otherwise without abnormality. Impression: - Two less than 5 mm polyps in the rectum and in the sigmoid colon, removed with a cold biopsy forceps. Resected and retrieved. - The examination was otherwise normal. Recommendation: - Discharge patient to home. - Resume previous diet. - Continue present medications. - Await pathology results. - Repeat colonoscopy in 5-10 years for surveillance based on pathology results. Procedure Code(s): --- Professional --- 75695, PT, Colonoscopy, flexible; with biopsy, single or multiple Diagnosis Code(s): --- Professional --- Z12.11, Encounter for screening for malignant neoplasm of colon K62.1, Rectal polyp D12.5, Benign neoplasm of sigmoid colon CPT copyright 2017 [employer]. All rights reserved. The codes documented in this report are preliminary and upon head of strategy review may be revised to meet current compliance requirements. MD Gwendolyn Holt MD 09/23/2022 9:14:59 AM This report has been signed electronically. Number of Addenda: 0 Note Initiated On: 09/23/2022 8:31 AM
[2022-09-23 09:20] VITALS: BP 126/71; BP 164/75; PULSE 69; RESP 16; O2SAT 97
[2022-09-23 09:25] VITALS: BP 134/76; BP 164/75; PULSE 65; RESP 16; O2SAT 97
[2022-09-23 09:30] VITALS: BP 102/81; BP 164/75; PULSE 63; RESP 16; TEMP 36.8; O2SAT 97
[2022-09-23 10:24] VITALS: BP 164/75
== END 2022-09-23 10:31 | disposition home or self-care (01) ==
LOC: EN 06:52 → AC 06:53
PROVIDERS: PCP Family Medicine; Referring Provider Family Medicine; Visit Provider Surgery
PROC: 0DJD8ZZ Inspection of Lower Intestinal Tract, Via Natural or Artificial Opening Endoscopic (ICD-10-PCS; CPT 45378; principal; 2022-09-23 07:55)
DX: Z12.11 Encounter for screening for malignant neoplasm of colon (principal); E66.01 Morbid (severe) obesity due to excess calories; K63.5 Polyp of colon; K62.1 Rectal polyp; G25.81 Restless legs syndrome; M19.90 Unspecified osteoarthritis, unspecified site; M47.816 Spondylosis without myelopathy or radiculopathy, lumbar region; Z78.0 Asymptomatic menopausal state; Z79.899 Other long term (current) drug therapy; Z68.38 Body mass index [BMI] 38.0-38.9, adult; Z85.89 Personal history of malignant neoplasm of other organs and systems; Z85.3 Personal history of malignant neoplasm of breast
CPT/HCPCS: 45380; 88305; J7120; J2405

== ENCOUNTER → 2023-01-04 | Outpatient (CLI) | payer MEDICARE, OTHER, SELFPAY ==
--- NOTE | 2023-01-04 14:23 | BI_ITS ---
MAMMOGRAPHY - BILATERAL DIAGNOSTIC REASON FOR EXAM: Female, 72 years old. Six-month follow-up examination. PERTINENT HISTORY: Personal history of breast cancer. Prior right lumpectomy and left stereotactic breast biopsy. TECHNIQUE: Digital bilateral breast frederic (3D mammographic acquisition) in the CC and MLO projections. 2-D mediolateral oblique (MLO) and craniocaudad (CC) views of both breasts were obtained. CAD: Full Field Digital Mammography with Computer Added Detection was performed. COMPARISON: Comparison is made with prior study July 07, 2022 and August 15, 2021. FINDINGS: Breast Composition: There are scattered areas of fibroglandular density. There are no dominant masses or suspicious calcifications. The patient is status post lumpectomy in the deep slightly upper medial aspect of the right breast with postoperative changes. Surgical clips are seen in the right axillary region. No other significant abnormalities are identified. There has been no significant change since the prior study. BI/DIAG MAMM W/CAD, BILAT IMPRESSION: Stable bilateral diagnostic mammogram. One year follow-up recommended. (A) ASSESSMENT CATEGORY: BIRADS Category 2: Benign. A letter regarding these results will be sent to the patient by the facility within 30 days. Approximately 10% of breast cancers are not detected by mammography. A normal mammogram should not delay biopsy of a clinically suspicious abnormality. Electronically Signed: Jose Carias MD at 15:38 EST ,
== END | disposition home or self-care (01) ==
LOC: OPBI 14:21
PROVIDERS: PCP Family Medicine; Visit Provider Student in an Organized Health Care Education/Training Program
DX: R92.8 Other abnormal and inconclusive findings on diagnostic imaging of breast (principal); Z85.3 Personal history of malignant neoplasm of breast
CPT/HCPCS: 77062; 77066; G0279

== ENCOUNTER → 2023-08-02 | Outpatient (CLI) | payer MEDICARE, OTHER, SELFPAY | END | disposition home or self-care (01) | LOC: LABSPEC 15:20 | PROVIDERS: PCP Nurse Practitioner Family; Referring Provider Nurse Practitioner Family; Visit Provider Nurse Practitioner Family | DX: N39.0 Urinary tract infection, site not specified (principal) | CPT/HCPCS: 87086; 87088; 87186 ==

== ENCOUNTER → 2023-10-05 | Outpatient (CLI) | payer MEDICARE, OTHER, SELFPAY ==
[2023-10-05 15:30] LABS: Absolute Lymphocyte Count 0.93 X10^3/uL (0.83-4.51); Absolute Neutrophil Count 3.3 X10^3/uL (2.0-7.7); Basophil# 0.07 X10^3/uL; Basophil% 1.4 % (0-1); Eosinophil# 0.25 X10^3/uL; Hematocrit 38.9 % (37-47); Hemoglobin 12.1 g/dL (12.0-15.0); Lymphocyte # 0.93 X10^3/ul (0.83-4.51); Lymphocyte % 18.6 % (19-41); Mean Corp Hgb Conc 31.1 g/dL (32-36); Mean Corpuscular Hgb 29.9 pg (27.0-32.0); Mean Platelet Vol. 10.9 fl (6.2-12.0); Monocyte# 0.45 X10^3/uL; NRBC Flagged by Analyzer 0 % (0-5); Neutrophil # 3.28 X10^3/uL (2.7-7.7); Neutrophil % 65.8 % (47-70); Platelet Count 298 K/mm3 (150-450); RBC Distribution Width CV 13.2 % (11.6-14.6); RBC Distribution Width SD 47.3 fl (35.1-43.9); Red Blood Count 4.05 M/mm3 (4.2-5.4)
[2023-10-05 16:57] LABS: ALB/GLOB Ratio 1.1 RATIO (0.9-2.4); AST(SGOT) 13 U/L (15-37); Alanine Aminotransfer ALT/SGPT 13 U/L (13-56); Albumin, Serum 3.5 g/dL (3.2-5.0); Alkaline Phosphatase 71 U/L (45-117); Anion Gap 6 (5-15); BUN 26 mg/dL (7-18); BUN/Creat Ratio 22.6 RATIO (10-20); Chloride 105 mmol/L (98-107); Creatinine, Serum 1.15 mg/dL (0.55-1.02); EST Glomerular Filtration Rate 49 mL/min (>60); Est Glom Filt Rate - Afr Amer 59 mL/min (>60); Globulin 3.3 g/dL (2.2-4.2); Glucose 91 mg/dL (74-106); Potassium 4.5 mmol/L (3.5-5.1); Protein, Total 6.8 g/dL (6.4-8.2); Sodium Level 139 mmol/L (136-145)
== END | disposition home or self-care (01) ==
LOC: BFHLAB 13:40
PROVIDERS: PCP Nurse Practitioner Family; Visit Provider Nurse Practitioner Family
DX: I10 Essential (primary) hypertension (principal)
CPT/HCPCS: 36415; 80053; 85025

== ENCOUNTER → 2024-01-11 | Outpatient (CLI) | payer MEDICARE, OTHER, SELFPAY ==
--- NOTE | 2024-01-11 15:08 | BI_ITS ---
MAMMOGRAPHY - BILATERAL SCREENING REASON FOR EXAM: Female, 73 years old. Routine annual screening examination. PERTINENT HISTORY: Personal history of breast cancer. Prior right lumpectomy and radiation. Remote left stereotactic breast biopsy. TECHNIQUE: Digital bilateral breast jaden (3D mammographic acquisition) in the CC and MLO projections. 2-D mediolateral oblique (MLO) and craniocaudad (CC) views of both breasts were obtained. CAD: Full Field Digital Mammography with Computer Added Detection was performed. COMPARISON: Comparison is made with prior study dated January 04, 2023 and July 07, 2022. FINDINGS: Breast Composition: There are scattered areas of fibroglandular density. There are no dominant masses or suspicious calcifications. The patient is status post lumpectomy in the deep slightly upper medial aspect of the right breast with resultant postoperative scarring. Surgical clips are also seen in the right axilla. There are 2 tissue markers seen in the central and medial aspect of the left breast. No other significant abnormalities are identified. There has been no significant change since the prior study. BI/SCRN MAMM (CAD)W/JADEN BILAT IMPRESSION: Stable bilateral screening mammogram. Yearly follow-up mammogram recommended. (A) ASSESSMENT CATEGORY: BIRADS Category 2: Benign. A letter regarding these results will be sent to the patient by the facility within 30 days. Approximately 10% of breast cancers are not detected by mammography. A normal mammogram should not delay biopsy of a clinically suspicious abnormality. [id number] Electronically Signed: Jose Carias MD at 10:28 EDT ,
== END | disposition home or self-care (01) ==
LOC: OPBI 16:11
PROVIDERS: PCP Nurse Practitioner Family; Referring Provider Student in an Organized Health Care Education/Training Program; Visit Provider Student in an Organized Health Care Education/Training Program
DX: Z12.31 Encounter for screening mammogram for malignant neoplasm of breast (principal); Z85.3 Personal history of malignant neoplasm of breast
CPT/HCPCS: 77063; 77067

== ENCOUNTER → 2024-03-13 | Outpatient (CLI) | payer MEDICARE, OTHER, SELFPAY | END | disposition home or self-care (01) | LOC: LABSPEC 16:39 | PROVIDERS: PCP Nurse Practitioner Family; Referring Provider Nurse Practitioner Family; Visit Provider Nurse Practitioner Family | DX: N39.0 Urinary tract infection, site not specified (principal) | CPT/HCPCS: 87077; 87086; 87088; 87186 ==

== ENCOUNTER 2024-09-07 22:57 | Emergency (ER) | payer OTHER, MEDICARE, SELFPAY ==
[2024-09-07 22:57] VITALS: PULSE 63; RESP 16; TEMP 36.9; O2SAT 98; BMI 42.9
[2024-09-07] MEDS: Ondansetron 4 MG/2 ML Vial IV (23:35)
[2024-09-07] MEDS: morphine 8 MG/ML Syringe IV (23:37)
[2024-09-07 23:57] VITALS: BP 105/58; PULSE 65; RESP 16; O2SAT 93
[2024-09-08 00:27] LABS: Prothrombin Time (Protime)PT. 13.6 SECONDS (11.7-14.9)
[2024-09-08 00:29] LABS: Partial Thromboplast Time 22.7 Seconds (24.1-36.2)
[2024-09-08] MEDS: Diphth,Pertuss(Acell),Tet Vac 0.5 ML Vial IM (00:32)
[2024-09-08 00:34] LABS: Anion Gap 5 (5-15); BUN 36 mg/dL (7-18); BUN/Creat Ratio 26.5 RATIO (10-20); Calcium,Total 8.5 mg/dL (8.5-10.1); Chloride 109 mmol/L (98-107); Creatinine, Serum 1.36 mg/dL (0.55-1.02); EST Glomerular Filtration Rate 40 mL/min (>60); Est Glom Filt Rate - Afr Amer 49 mL/min (>60); Estimated Creatinine Clearance 49.74 ml/min; Glucose 109 mg/dL (74-106); Potassium 4.8 mmol/L (3.5-5.1); Sodium Level 141 mmol/L (136-145)
[2024-09-08 00:42] LABS: Absolute Lymphocyte Count 1.33 X10^3/uL (0.83-4.51); Basophil# 0.04 X10^3/uL; Basophil% 0.5 % (0-1); Eosinophil# 0.06 X10^3/uL; Eosinophils% 0.7 % (0-5); Hematocrit 38.2 % (37-47); Hemoglobin 11.8 g/dL (12.0-15.0); Lymphocyte # 1.33 X10^3/ul (0.83-4.51); Lymphocyte % 15.9 % (19-41); Mean Corp Hgb Conc 30.9 g/dL (32-36); Mean Corpuscular Hgb 29.7 pg (27.0-32.0); Mean Corpuscular Volume 96.2 fL (81-99); Mean Platelet Vol. 12.3 fl (6.2-12.0); Monocyte# 0.82 X10^3/uL; Monocyte% 9.8 % (0-10); NRBC Flagged by Analyzer 0 % (0-5); Neutrophil # 5.98 X10^3/uL (2.7-7.7); Neutrophil % 71.5 % (47-70); Platelet Count 305 K/mm3 (150-450); RBC Distribution Width CV 13.5 % (11.6-14.6); Red Blood Count 3.97 M/mm3 (4.2-5.4); White Blood Count 8.4 K/mm3 (4.4-11.0)
[2024-09-08 00:43] LABS: Alcohol, Blood (Medical)-Serum < 3.0 mg/dL
[2024-09-08 00:55] VITALS: BP 103/50; PULSE 64; RESP 16; O2SAT 92
[2024-09-08 02:00] VITALS: BP 107/58; PULSE 63; RESP 16; O2SAT 97
[2024-09-08 03:00] VITALS: BP 103/50; PULSE 66; RESP 17; O2SAT 97
[2024-09-08] MEDS: Ondansetron 4 MG/2 ML Vial IV (03:21)
[2024-09-08] MEDS: fentaNYL 100 MCG/2 ML Ampul 50 MCG IV ×2 (03:21→05:21)
[2024-09-08] MEDS: Vancomycin HCl 2,000 MG in 0.9% Normal Saline (500mL Bag) 500 ML 250 MG IV (03:45)
[2024-09-08 04:00] VITALS: BP 111/82; PULSE 63; RESP 16; O2SAT 95
[2024-09-08 04:46] VITALS: BP 111/82; PULSE 70; RESP 17; TEMP 36.6; O2SAT 95
[2024-09-08 05:00] LABS: Bacteria 0 SEEN /hpf (None Seen); Mucous, Urine 0 SEEN /hpf (<or=2+); Red Blood Cells-Urine 0 SEEN /hpf (0-5)
[2024-09-08 05:02] LABS: Color, Urine Yellow (Yellow); Glucose, Dipstick Normal (Normal); Ketone-Dipstick Negative (Negative); Leukocyte Esterase-Dipstick 25 /ul (Negative); Nitrite-Dipstick Negative (Negative); Occult Blood-Urine Negative /ul (Negative); Protein-Dipstick 30 mg/dl (Negative); Urine Bilirubin Dipstick Negative (Negative); Urine Clarity Clear (Clear); Urine Urobilinogen 1 mg/dl (Normal)
[2024-09-08 05:14] LABS: Amphetamine Urine VISTA NEGATIVE (<1000 ng/mL); Barbiturate Urine VISTA NEGATIVE (< 200 ng/mL); Benzodiazepine Urine VISTA NEGATIVE (< 200 ng/mL); Cocaine Urine VISTA NEGATIVE (< 300 ng/mL); Ecstacy Urine VISTA NEGATIVE (< 500 ng/mL); Methadone Urine VISTA NEGATIVE (< 300 ng/mL); PCP Urine VISTA NEGATIVE (< 25 ng/mL); THC Urine VISTA NEGATIVE (< 50 ng/mL); Vista UDS pH Range 6
[2024-09-08 05:18] LABS: Squamous Epithelial Cells - UA 0-5 SEEN /hpf (5-10); White Blood Cells 0-5 SEEN /hpf (0-5)
== END 2024-09-08 05:33 | disposition short-term general hospital (02) ==
PROVIDERS: Emergency Provider Emergency Medicine; PCP Nurse Practitioner Family; Visit Provider Emergency Medicine
DX: S82.291B Other fracture of shaft of right tibia, initial encounter for open fracture type I or II (principal); S20.211A Contusion of right front wall of thorax, initial encounter; S80.12XA Contusion of left lower leg, initial encounter; V49.40XA Driver injured in collision with unspecified motor vehicles in traffic accident, initial encounter; Y93.89 Activity, other specified; Y92.410 Unspecified street and highway as the place of occurrence of the external cause; Z79.899 Other long term (current) drug therapy; Z23 Encounter for immunization
CPT/HCPCS: 51702; 70450; 71250; 72125; 73590; 73610; 73630; 74176; 80048; 80307; 81001; 82077; 85025; 85610; 85730; 90715; 93005; 96365; 96366; 96375; 96376; 99285; J7040; A4216; J2405

== ENCOUNTER 2024-09-11 16:55 | Inpatient (IN) | payer MEDICARE, OTHER, SELFPAY ==
[2024-09-11 17:20] VITALS: PULSE 80; RESP 14; TEMP 36.4; O2SAT 97
[2024-09-11 19:42] VITALS: BP 137/52; PULSE 78; RESP 18; TEMP 36.4; O2SAT 98
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
[2024-09-11] MEDS: Enoxaparin 60 MG/0.6 ML Syringe SC (22:27)
[2024-09-11] MEDS: Acetaminophen 500 MG Tablet 1000 MG PO (22:28)
[2024-09-11] MEDS: Senna/Docusate Sodium 1 Tablet PO (22:28)
[2024-09-11] MEDS: Amitriptyline 25 MG Tablet PO (22:29)
[2024-09-12 01:38] VITALS: PULSE 78; RESP 18; O2SAT 98
[2024-09-12] MEDS: Acetaminophen 500 MG Tablet 1000 MG PO ×3 (05:07→21:35)
[2024-09-12] MEDS: Magnesium Citrate 300 ML PO (05:14)
--- NOTE | 2024-09-12 05:23 | NURSING ---
Patient accepted mag citrate for bowel protocol,
[2024-09-12 07:00] VITALS: BP 147/67; PULSE 82; RESP 16; TEMP 36.2; O2SAT 95
--- NOTE | 2024-09-12 07:00 | NURSING ---
academic success coordinator report resident c/o feeling hot and cold. Nauseated and spit up some mucous. Resident reports she just took a full dose of Mag Citrate. LBM 09/06. Vitals obtained and recorded. Skin pink/pale and moist. Will continue to monitor.
[2024-09-12 07:08] LABS: Absolute Lymphocyte Count 0.59 X10^3/uL (0.83-4.51); Absolute Neutrophil Count 8.7 X10^3/uL (2.0-7.7); Basophil# 0.04 X10^3/uL; Basophil% 0.4 % (0-1); Eosinophil# 0.12 X10^3/uL; Eosinophils% 1.1 % (0-5); Hematocrit 28.5 % (37-47); Hemoglobin 9.2 g/dL (12.0-15.0); Lymphocyte # 0.59 X10^3/ul (0.83-4.51); Lymphocyte % 5.5 % (19-41); Mean Corp Hgb Conc 32.3 g/dL (32-36); Mean Corpuscular Hgb 30.7 pg (27.0-32.0); Mean Platelet Vol. 12.1 fl (6.2-12.0); Monocyte# 1.19 X10^3/uL; Monocyte% 11.2 % (0-10); NRBC Flagged by Analyzer 0 % (0-5); Neutrophil # 8.67 X10^3/uL (2.7-7.7); Neutrophil % 81.3 % (47-70); POSITIVE DIFFERENTIAL YES; Platelet Count 263 K/mm3 (150-450); RBC Distribution Width CV 13.8 % (11.6-14.6); RBC Distribution Width SD 47.6 fl (35.1-43.9); White Blood Count 10.7 K/mm3 (4.4-11.0)
[2024-09-12 07:39] LABS: Anion Gap 6 (5-15); BUN 23 mg/dL (7-18); BUN/Creat Ratio 23.4 RATIO (10-20); Calcium,Total 8.8 mg/dL (8.5-10.1); Chloride 110 mmol/L (98-107); Creatinine, Serum 0.98 mg/dL (0.55-1.02); EST Glomerular Filtration Rate 59 mL/min (>60); Est Glom Filt Rate - Afr Amer 71 mL/min (>60); Glucose 110 mg/dL (74-106); Sodium Level 140 mmol/L (136-145)
[2024-09-12] MEDS: Enoxaparin 60 MG/0.6 ML Syringe SC ×2 (09:10→21:36)
[2024-09-12] MEDS: FLU VACCINE **HIGH DOSE** TV 24-25 180 MCG/0.5 ML SYRINGE IM (09:15)
[2024-09-12 10:13] VITALS: BMI 40.0
[2024-09-12] MEDS: Tuberculin,Purif.prot.deriv. 50 TU/ML Vial 0.1 ML ID (10:38)
[2024-09-12] MEDS: Meloxicam 7.5 MG Tablet PO (10:39)
--- NOTE | 2024-09-12 13:20 | NURSING ---
Addendum entered by Modesta Cannon 09/13/24 12:33: Received faxed xray orders and time for virtual appt. on 09/20/24 at 2:45. Updated resident. Addendum entered by Modesta Cannon 09/12/24 15:03: Call back from Adonay at Dr. Mackey, she said they will do a virtual appt with resident and will fax over xray orders to be completed at [facility]. She will have MD sign orders and send them tomorrow with a specific virtual appt time/date. They will call the TCU unit phone for the virtual visit. Updated resident. She wanted sister Abbey updated. RN called and updated Abbey. Original Note: Discussed follow-up with ortho doctor, resident said well he's gonna have to come to me. Let her know RN would see about xrays being done here. Asked about code status, she said I don't want to talk about this. Do whatever you think needs done. Will leave full code at this time. Asked if she needed anything, requested fresh water, provided fresh ice water. She declined any other needs at this time. Called and left VM with ortho office, requested return call.
--- NOTE | 2024-09-12 15:56 | CASEMGMT ---
Social Work SW met with patient to complete initial assessment. Introduced self and role. Verified contacts. Requested pt have family provide copies of advanced directives. SW discussed code status and pt wishes to be DNR-CCA, no intubation. SW notified nursing. SW educated to Medicare benefit and copay coverage. Pt is aware she may need alternative DC plan until WBS increases and/or ramp is installed in home. SW offered resources and assistance with DC planning. Rosalva Pope, COLLAR SEWER EXECUTIVE VP
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
[2024-09-12 20:00] VITALS: PULSE 84; O2SAT 95
[2024-09-12 20:02] VITALS: BMI 40.1
[2024-09-12] MEDS: Senna/Docusate Sodium 1 Tablet PO (21:35)
[2024-09-12] MEDS: Amitriptyline 25 MG Tablet PO (21:36)
[2024-09-13] MEDS: Acetaminophen 500 MG Tablet 1000 MG PO ×3 (05:57→23:04)
[2024-09-13 06:06] LABS: Absolute Lymphocyte Count 0.68 X10^3/uL (0.83-4.51); Absolute Neutrophil Count 8.2 X10^3/uL (2.0-7.7); Basophil# 0.07 X10^3/uL; Basophil% 0.7 % (0-1); Eosinophil# 0.23 X10^3/uL; Eosinophils% 2.2 % (0-5); Hematocrit 29.6 % (37-47); Hemoglobin 9.4 g/dL (12.0-15.0); Lymphocyte # 0.68 X10^3/ul (0.83-4.51); Lymphocyte % 6.6 % (19-41); Mean Corp Hgb Conc 31.8 g/dL (32-36); Mean Corpuscular Hgb 30.3 pg (27.0-32.0); Mean Corpuscular Volume 95.5 fL (81-99); Mean Platelet Vol. 11.7 fl (6.2-12.0); Monocyte# 1.07 X10^3/uL; Monocyte% 10.4 % (0-10); NRBC Flagged by Analyzer 0 % (0-5); Neutrophil # 8.17 X10^3/uL (2.7-7.7); Neutrophil % 79.5 % (47-70); Platelet Count 296 K/mm3 (150-450); RBC Distribution Width SD 48.6 fl (35.1-43.9); White Blood Count 10.3 K/mm3 (4.4-11.0)
[2024-09-13 07:30] LABS: Anion Gap 4 (5-15); BUN 25 mg/dL (7-18); BUN/Creat Ratio 22.9 RATIO (10-20); Chloride 107 mmol/L (98-107); Creatinine, Serum 1.09 mg/dL (0.55-1.02); EST Glomerular Filtration Rate 52 mL/min (>60); Est Glom Filt Rate - Afr Amer 63 mL/min (>60); Estimated Creatinine Clearance 59.83 ml/min; Glucose 122 mg/dL (74-106); Potassium 4.3 mmol/L (3.5-5.1); Sodium Level 139 mmol/L (136-145)
[2024-09-13] MEDS: predniSONE 10 MG Tablet PO (09:28)
[2024-09-13] MEDS: Meloxicam 7.5 MG Tablet PO (09:29)
[2024-09-13] MEDS: Enoxaparin 60 MG/0.6 ML Syringe SC ×2 (09:29→23:01)
[2024-09-13] MEDS: Senna/Docusate Sodium 1 Tablet PO ×2 (09:41→23:01)
--- NOTE | 2024-09-13 13:32 | NURSING ---
Digital Marketing Lead Note; Activity Asset: Sol Leblanc is independent in her choice of daily activities. She has her books and smartphone with her and she will watch tv. Her adventism family has been in to visits and will continue to stop in along w/her sister and niece. She welcomes visits w/the therapy dog when available. Staff will remind her of weekly activities and respect her right to say no.
--- NOTE | 2024-09-13 15:14 | WOUNDNOTE ---
wound photo: left lower leg
--- NOTE | 2024-09-13 15:14 | WOUNDNOTE ---
skin photo: left lower leg
--- NOTE | 2024-09-13 15:15 | WOUNDNOTE ---
skin phoot: left lower leg
--- NOTE | 2024-09-13 15:15 | WOUNDNOTE ---
wound photo: right lower leg
[2024-09-13 16:00] VITALS: BP 150/67; PULSE 83; RESP 17; TEMP 36.4; O2SAT 97
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
[2024-09-13] MEDS: oxyCODONE 5 MG Tablet PO ×2 (16:54→23:00)
[2024-09-13] MEDS: Ensure Plus High Protein 120 ML LIQUID PO (16:57)
--- NOTE | 2024-09-13 22:40 | NURSING ---
Attempt to administer HS meds per order, patient requests bedpan at this time prior to med administration
[2024-09-13 22:44] VITALS: PULSE 84; RESP 16; O2SAT 97
[2024-09-13] MEDS: Amitriptyline 25 MG Tablet PO (23:02)
[2024-09-13] MEDS: MELATONIN 10 MG TABLET PO (23:02)
[2024-09-14] MEDS: Acetaminophen 500 MG Tablet 1000 MG PO ×3 (05:23→21:03)
[2024-09-14 08:16] LABS: Anion Gap 4 (5-15); BUN 30 mg/dL (7-18); BUN/Creat Ratio 26.5 RATIO (10-20); Calcium,Total 8.6 mg/dL (8.5-10.1); Chloride 108 mmol/L (98-107); Creatinine, Serum 1.13 mg/dL (0.55-1.02); EST Glomerular Filtration Rate 50 mL/min (>60); Est Glom Filt Rate - Afr Amer 60 mL/min (>60); Estimated Creatinine Clearance 57.71 ml/min; Glucose 110 mg/dL (74-106); Potassium 4.3 mmol/L (3.5-5.1); Sodium Level 138 mmol/L (136-145)
[2024-09-14 08:58] LABS: Absolute Neutrophil Count 8.6 X10^3/uL (2.0-7.7); Basophil# 0.02 X10^3/uL; Basophil% 0.2 % (0-1); Hematocrit 30.5 % (37-47); Hemoglobin 9.5 g/dL (12.0-15.0); Lymphocyte % 5.9 % (19-41); Mean Corp Hgb Conc 31.1 g/dL (32-36); Mean Corpuscular Hgb 29.7 pg (27.0-32.0); Mean Corpuscular Volume 95.3 fL (81-99); Mean Platelet Vol. 11.3 fl (6.2-12.0); Monocyte# 0.81 X10^3/uL; NRBC Flagged by Analyzer 0 % (0-5); Neutrophil # 8.57 X10^3/uL (2.7-7.7); Neutrophil % 84.3 % (47-70); POSITIVE DIFFERENTIAL YES; Platelet Count 342 K/mm3 (150-450); RBC Distribution Width SD 48.6 fl (35.1-43.9); White Blood Count 10.2 K/mm3 (4.4-11.0)
[2024-09-14] MEDS: Ensure Plus High Protein 120 ML LIQUID PO ×2 (10:41→13:29)
[2024-09-14] MEDS: predniSONE 10 MG Tablet PO (10:43)
[2024-09-14] MEDS: Senna/Docusate Sodium 1 Tablet PO ×2 (10:44→21:03)
[2024-09-14] MEDS: Enoxaparin 60 MG/0.6 ML Syringe SC ×2 (10:44→21:03)
[2024-09-14] MEDS: Meloxicam 7.5 MG Tablet PO (10:46)
[2024-09-14 10:56] VITALS: BP 123/51; PULSE 81; O2SAT 97
[2024-09-14 12:26] LABS: Vitamin D,25 Hydroxy 31.5 ng/mL
[2024-09-14 16:00] VITALS: RESP 17; TEMP 36.8
[2024-09-14] MEDS: traMADol 50 MG Tablet PO (16:59)
--- NOTE | 2024-09-14 17:01 | NURSING ---
UP DATED PT ON STAFF MEMBER TESTING POSITIVE FOR COVID. PT STATED SHE DIDNT WANT FAMILY TO KNOW AT THIS TIME AND WILL TELL THEM IF SHE TESTS POSITIVE.
[2024-09-14 21:00] VITALS: PULSE 68; O2SAT 96
[2024-09-14] MEDS: MELATONIN 10 MG TABLET PO (21:03)
[2024-09-14] MEDS: Amitriptyline 25 MG Tablet PO (21:04)
[2024-09-14] MEDS: oxyCODONE 5 MG Tablet PO (21:07)
[2024-09-15 05:57] LABS: Absolute Lymphocyte Count 0.57 X10^3/uL (0.83-4.51); Absolute Neutrophil Count 6.7 X10^3/uL (2.0-7.7); Basophil# 0.01 X10^3/uL; Basophil% 0.1 % (0-1); Eosinophil# 0.04 X10^3/uL; Eosinophils% 0.5 % (0-5); Hematocrit 28.9 % (37-47); Hemoglobin 9.2 g/dL (12.0-15.0); Lymphocyte # 0.57 X10^3/ul (0.83-4.51); Lymphocyte % 6.9 % (19-41); Mean Corp Hgb Conc 31.8 g/dL (32-36); Mean Corpuscular Hgb 30.3 pg (27.0-32.0); Mean Corpuscular Volume 95.1 fL (81-99); Mean Platelet Vol. 11.4 fl (6.2-12.0); Monocyte# 0.89 X10^3/uL; Monocyte% 10.7 % (0-10); NRBC Flagged by Analyzer 0 % (0-5); Neutrophil # 6.72 X10^3/uL (2.7-7.7); Neutrophil % 81.1 % (47-70); POSITIVE DIFFERENTIAL YES; Platelet Count 334 K/mm3 (150-450); RBC Distribution Width CV 14.1 % (11.6-14.6); RBC Distribution Width SD 48.7 fl (35.1-43.9); Red Blood Count 3.04 M/mm3 (4.2-5.4); White Blood Count 8.3 K/mm3 (4.4-11.0)
[2024-09-15 06:21] LABS: Anion Gap 5 (5-15); BUN 36 mg/dL (7-18); BUN/Creat Ratio 30.5 RATIO (10-20); Calcium,Total 8.8 mg/dL (8.5-10.1); Chloride 106 mmol/L (98-107); Creatinine, Serum 1.18 mg/dL (0.55-1.02); EST Glomerular Filtration Rate 47 mL/min (>60); Est Glom Filt Rate - Afr Amer 57 mL/min (>60); Estimated Creatinine Clearance 55.27 ml/min; Glucose 111 mg/dL (74-106); Potassium 4.4 mmol/L (3.5-5.1); Sodium Level 137 mmol/L (136-145)
[2024-09-15] MEDS: Acetaminophen 500 MG Tablet 1000 MG PO ×3 (06:33→22:26)
[2024-09-15] MEDS: Ensure Plus High Protein 120 ML LIQUID PO ×3 (09:02→22:19)
[2024-09-15] MEDS: predniSONE 10 MG Tablet PO (09:02)
[2024-09-15] MEDS: Enoxaparin 60 MG/0.6 ML Syringe SC ×2 (09:03→22:21)
[2024-09-15] MEDS: Meloxicam 7.5 MG Tablet PO (09:04)
[2024-09-15] MEDS: Senna/Docusate Sodium 1 Tablet PO ×2 (09:04→22:25)
[2024-09-15] MEDS: Polyethylene Glycol 3350 17 GM PACKET PO (09:04)
[2024-09-15 09:10] VITALS: BP 122/52; PULSE 77; O2SAT 96
[2024-09-15 10:00] VITALS: PULSE 77; RESP 16; O2SAT 96
[2024-09-15] MEDS: traMADol 50 MG Tablet PO (11:30)
--- NOTE | 2024-09-15 12:03 | NURSING ---
Left VM with Dr. Mackey office asking about removing sutures. Requested return call.
[2024-09-15] MEDS: oxyCODONE 5 MG Tablet PO ×2 (15:59→20:15)
--- NOTE | 2024-09-15 20:19 | NURSING ---
Patient accepted prune juice at time for bowel protocol.
[2024-09-15] MEDS: MELATONIN 10 MG TABLET PO (22:25)
[2024-09-15] MEDS: Amitriptyline 25 MG Tablet PO (22:25)
[2024-09-16] MEDS: oxyCODONE 5 MG Tablet PO ×4 (04:19→22:03)
[2024-09-16] MEDS: Acetaminophen 500 MG Tablet 1000 MG PO ×3 (06:13→21:59)
[2024-09-16 07:23] LABS: Absolute Lymphocyte Count 0.65 X10^3/uL (0.83-4.51); Absolute Neutrophil Count 6.5 X10^3/uL (2.0-7.7); Basophil# 0.02 X10^3/uL; Basophil% 0.2 % (0-1); Eosinophil# 0.08 X10^3/uL; Hematocrit 29.6 % (37-47); Hemoglobin 9.5 g/dL (12.0-15.0); Lymphocyte # 0.65 X10^3/ul (0.83-4.51); Lymphocyte % 7.9 % (19-41); Mean Corp Hgb Conc 32.1 g/dL (32-36); Mean Corpuscular Hgb 30.4 pg (27.0-32.0); Mean Corpuscular Volume 94.6 fL (81-99); Mean Platelet Vol. 12.5 fl (6.2-12.0); Monocyte# 0.92 X10^3/uL; Monocyte% 11.2 % (0-10); NRBC Flagged by Analyzer 0.5 % (0-5); Neutrophil # 6.46 X10^3/uL (2.7-7.7); Neutrophil % 78.7 % (47-70); Platelet Count 312 K/mm3 (150-450); RBC Distribution Width CV 14.4 % (11.6-14.6); RBC Distribution Width SD 48.9 fl (35.1-43.9); Red Blood Count 3.13 M/mm3 (4.2-5.4); White Blood Count 8.2 K/mm3 (4.4-11.0)
[2024-09-16 07:48] LABS: Anion Gap 4 (5-15); BUN 43 mg/dL (7-18); BUN/Creat Ratio 36.8 RATIO (10-20); Calcium,Total 8.9 mg/dL (8.5-10.1); Chloride 106 mmol/L (98-107); Creatinine, Serum 1.17 mg/dL (0.55-1.02); EST Glomerular Filtration Rate 48 mL/min (>60); Est Glom Filt Rate - Afr Amer 58 mL/min (>60); Estimated Creatinine Clearance 55.74 ml/min; Glucose 97 mg/dL (74-106); Potassium 4.4 mmol/L (3.5-5.1); Sodium Level 137 mmol/L (136-145)
[2024-09-16] MEDS: Ensure Plus High Protein 120 ML LIQUID PO ×3 (09:45→18:18)
[2024-09-16] MEDS: predniSONE 10 MG Tablet PO (09:45)
[2024-09-16] MEDS: Meloxicam 7.5 MG Tablet PO (09:46)
[2024-09-16] MEDS: Senna/Docusate Sodium 1 Tablet PO ×2 (09:47→22:00)
[2024-09-16] MEDS: Polyethylene Glycol 3350 17 GM PACKET PO (09:47)
[2024-09-16] MEDS: Enoxaparin 60 MG/0.6 ML Syringe SC ×2 (09:49→21:56)
[2024-09-16 10:00] VITALS: PULSE 73; RESP 17; O2SAT 95
[2024-09-16 15:16] VITALS: BP 140/64; PULSE 83; RESP 16; TEMP 36.3; O2SAT 95
[2024-09-16 20:00] VITALS: PULSE 62; O2SAT 95
[2024-09-16] MEDS: MELATONIN 10 MG TABLET PO (22:00)
[2024-09-16] MEDS: Amitriptyline 25 MG Tablet PO (22:00)
[2024-09-17] MEDS: Acetaminophen 500 MG Tablet 1000 MG PO ×3 (05:47→23:01)
[2024-09-17 07:17] LABS: Absolute Lymphocyte Count 0.89 X10^3/uL (0.83-4.51); Absolute Neutrophil Count 6.1 X10^3/uL (2.0-7.7); Basophil# 0.02 X10^3/uL; Basophil% 0.2 % (0-1); Eosinophil# 0.13 X10^3/uL; Eosinophils% 1.6 % (0-5); Hematocrit 30.2 % (37-47); Hemoglobin 9.3 g/dL (12.0-15.0); Lymphocyte # 0.89 X10^3/ul (0.83-4.51); Lymphocyte % 11.1 % (19-41); Mean Corp Hgb Conc 30.8 g/dL (32-36); Mean Corpuscular Hgb 29.7 pg (27.0-32.0); Mean Corpuscular Volume 96.5 fL (81-99); Mean Platelet Vol. 12.5 fl (6.2-12.0); Monocyte# 0.88 X10^3/uL; Monocyte% 10.9 % (0-10); NRBC Flagged by Analyzer 0 % (0-5); Neutrophil # 6.07 X10^3/uL (2.7-7.7); Neutrophil % 75.5 % (47-70); Platelet Count 318 K/mm3 (150-450); RBC Distribution Width CV 14.4 % (11.6-14.6); RBC Distribution Width SD 50.4 fl (35.1-43.9); Red Blood Count 3.13 M/mm3 (4.2-5.4); White Blood Count 8.1 K/mm3 (4.4-11.0)
[2024-09-17 07:37] LABS: Anion Gap 5 (5-15); BUN 46 mg/dL (7-18); BUN/Creat Ratio 37.4 RATIO (10-20); Calcium,Total 8.8 mg/dL (8.5-10.1); Chloride 106 mmol/L (98-107); Creatinine, Serum 1.23 mg/dL (0.55-1.02); EST Glomerular Filtration Rate 45 mL/min (>60); Est Glom Filt Rate - Afr Amer 55 mL/min (>60); Estimated Creatinine Clearance 53.02 ml/min; Glucose 89 mg/dL (74-106); Potassium 4.3 mmol/L (3.5-5.1); Sodium Level 137 mmol/L (136-145)
[2024-09-17] MEDS: Meloxicam 7.5 MG Tablet PO (08:20)
[2024-09-17] MEDS: predniSONE 10 MG Tablet PO (08:20)
[2024-09-17] MEDS: Senna/Docusate Sodium 1 Tablet PO ×2 (08:21→23:01)
[2024-09-17] MEDS: Enoxaparin 60 MG/0.6 ML Syringe SC ×2 (08:21→22:59)
[2024-09-17] MEDS: Polyethylene Glycol 3350 17 GM PACKET PO (08:22)
[2024-09-17] MEDS: Ensure Plus High Protein 120 ML LIQUID PO ×2 (08:25→16:35)
[2024-09-17 13:38] VITALS: BP 128/60; PULSE 76; RESP 16; TEMP 36.7; O2SAT 97
[2024-09-17] MEDS: Magnesium Citrate 300 ML PO (16:52)
[2024-09-17 20:00] VITALS: PULSE 66; O2SAT 96
[2024-09-17] MEDS: MELATONIN 10 MG TABLET PO (23:00)
[2024-09-17] MEDS: Amitriptyline 25 MG Tablet PO (23:00)
[2024-09-17] MEDS: oxyCODONE 5 MG Tablet PO (23:05)
[2024-09-18] MEDS: Acetaminophen 500 MG Tablet 1000 MG PO ×3 (05:32→21:26)
[2024-09-18] MEDS: Enoxaparin 60 MG/0.6 ML Syringe SC ×2 (08:53→21:26)
[2024-09-18] MEDS: Polyethylene Glycol 3350 17 GM PACKET PO (08:53)
[2024-09-18] MEDS: Meloxicam 7.5 MG Tablet PO (08:55)
[2024-09-18] MEDS: predniSONE 10 MG Tablet PO (08:55)
[2024-09-18] MEDS: Ergocalciferol 1.25 MG (50, 000 UNIT) Capsule PO (08:56)
[2024-09-18] MEDS: Senna/Docusate Sodium 1 Tablet PO ×2 (08:56→21:26)
--- NOTE | 2024-09-18 09:19 | NURSING ---
Ground Products Director Note; MDS for 09/18/2024 Complete
[2024-09-18 09:21] VITALS: BP 133/50; PULSE 83; O2SAT 99
[2024-09-18 10:00] VITALS: PULSE 83; RESP 16; O2SAT 99
--- NOTE | 2024-09-18 10:11 | NURSING ---
Call back from Kelly at Dr. Mackey office, ok for TCU nurse to remove sutures as long as incision site looks ok.
--- NOTE | 2024-09-18 10:27 | NURSING ---
Addendum entered by Lillie Hopson 09/18/24 14:28: MOM was effective. Patient had xtra large results. Original Note: Patient refusing Soap suds enema at this time. Dr. Hoyos notified. New order for MOM. Patient aware and agreeable.
[2024-09-18] MEDS: Magnesium Hydroxide 30 ML UDC PO (10:57)
[2024-09-18] MEDS: oxyCODONE 5 MG Tablet PO ×2 (13:56→21:25)
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
--- NOTE | 2024-09-18 15:31 | CASEMGMT ---
Social Work SW completed BIMS () and PHQ-2 () for MDS assessment. Pt expressed discouragement with changes in medical and functional status. Pt expressed slight frustration with the misdx of shingles and Dr wanting her to be placed on medication to treat shingles, but had side effects she did not favor, and ultimately denied the medication, per pt perspective. pt clarified, she is has received great care and understands the reason for the Dr ordering the medication, but also, she was happy she trusted her gut. SW expressed understanding and validated her feelings. SW offered to assist if anything else changes. Pt appreciative. Rosalva Pope, VIOLIN MECHANIC PROGRESS DEVELOPER
[2024-09-18 15:53] VITALS: RESP 14; TEMP 36.8
[2024-09-18] MEDS: COVID VAC 24-25 (12UP)(MODERNA)/PF 50 MCG/0.5 ML SYRINGE IM (16:15)
[2024-09-18] MEDS: Ensure Plus High Protein 120 ML LIQUID PO (16:17)
--- NOTE | 2024-09-18 16:18 | NURSING ---
Covid 19 vaccination given in left deltoid. Tolerated well. No C/O's voiced.
[2024-09-18] MEDS: MELATONIN 10 MG TABLET PO (21:26)
[2024-09-18] MEDS: Amitriptyline 25 MG Tablet PO (21:26)
[2024-09-18] MEDS: Nystatin Powder 15gm Bottle 1 APPLIC TOPICAL (21:32)
[2024-09-18 22:37] LABS: Color, Urine Yellow (Yellow); Glucose, Dipstick Normal (Normal); Ketone-Dipstick Negative (Negative); Leukocyte Esterase-Dipstick 500 /ul (Negative); Nitrite-Dipstick Negative (Negative); Occult Blood-Urine 25 /ul (Negative); Protein-Dipstick 30 mg/dl (Negative); Urine Bilirubin Dipstick Negative (Negative); Urine Clarity Cloudy (Clear); Urine Urobilinogen Normal (Normal); Urine pH 6.5 (5.0 - 8.0)
[2024-09-18 22:44] LABS: Bacteria 2+ /hpf (None Seen); Mucous, Urine 2+ /hpf (<or=2+); Red Blood Cells-Urine 5-10 SEEN /hpf (0-5); Squamous Epithelial Cells - UA 0-5 SEEN /hpf (5-10); White Blood Cells >100 SEEN /hpf (0-5); White Cell Cast 0-5 SEEN /lpf (None Seen)
[2024-09-19] MEDS: oxyCODONE 5 MG Tablet PO ×5 (03:40→21:36)
[2024-09-19] MEDS: traMADol 50 MG Tablet PO (04:54)
[2024-09-19] MEDS: Acetaminophen 500 MG Tablet 1000 MG PO ×3 (04:55→21:39)
[2024-09-19 06:24] LABS: Absolute Lymphocyte Count 0.85 X10^3/uL (0.83-4.51); Basophil# 0.01 X10^3/uL; Basophil% 0.1 % (0-1); Eosinophils% 1.1 % (0-5); Hemoglobin 9.7 g/dL (12.0-15.0); Lymphocyte # 0.85 X10^3/ul (0.83-4.51); Lymphocyte % 9.4 % (19-41); Mean Corp Hgb Conc 29.4 g/dL (32-36); Mean Corpuscular Hgb 29.8 pg (27.0-32.0); Mean Corpuscular Volume 101.2 fL (81-99); Monocyte# 0.98 X10^3/uL; Monocyte% 10.9 % (0-10); NRBC Flagged by Analyzer 0 % (0-5); Neutrophil % 77.5 % (47-70); Platelet Count 320 K/mm3 (150-450); RBC Distribution Width CV 14.8 % (11.6-14.6); RBC Distribution Width SD 54.4 fl (35.1-43.9); Red Blood Count 3.26 M/mm3 (4.2-5.4)
[2024-09-19 06:41] LABS: Anion Gap 3 (5-15); BUN 45 mg/dL (7-18); BUN/Creat Ratio 39.1 RATIO (10-20); Calcium,Total 8.5 mg/dL (8.5-10.1); Chloride 105 mmol/L (98-107); Creatinine, Serum 1.15 mg/dL (0.55-1.02); EST Glomerular Filtration Rate 49 mL/min (>60); Est Glom Filt Rate - Afr Amer 59 mL/min (>60); Estimated Creatinine Clearance 56.71 ml/min; Glucose 101 mg/dL (74-106); Potassium 4.5 mmol/L (3.5-5.1); Sodium Level 135 mmol/L (136-145)
[2024-09-19] MEDS: Senna/Docusate Sodium 1 Tablet PO ×2 (08:19→21:39)
[2024-09-19] MEDS: Nystatin Powder 15gm Bottle 1 APPLIC TOPICAL ×2 (08:19→21:42)
[2024-09-19] MEDS: Meloxicam 7.5 MG Tablet PO (08:19)
[2024-09-19] MEDS: predniSONE 10 MG Tablet PO (08:19)
[2024-09-19] MEDS: Polyethylene Glycol 3350 17 GM PACKET PO (08:19)
[2024-09-19] MEDS: Enoxaparin 60 MG/0.6 ML Syringe SC ×2 (08:20→21:40)
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
[2024-09-19] MEDS: Tuberculin,Purif.prot.deriv. 50 TU/ML Vial 0.1 ML ID (10:53)
[2024-09-19] MEDS: Ciprofloxacin 250 MG Tablet PO ×2 (10:53→21:40)
[2024-09-19 15:35] VITALS: BP 103/40; PULSE 65; RESP 16; TEMP 36.3; O2SAT 97
[2024-09-19] MEDS: Ensure Plus High Protein 120 ML LIQUID PO (16:40)
[2024-09-19] MEDS: MELATONIN 10 MG TABLET PO (21:40)
[2024-09-19] MEDS: Amitriptyline 25 MG Tablet PO (21:41)
[2024-09-19 23:40] VITALS: RESP 16
[2024-09-20] MEDS: oxyCODONE 5 MG Tablet PO (01:37)
[2024-09-20] MEDS: Acetaminophen 500 MG Tablet 1000 MG PO ×3 (05:58→20:57)
[2024-09-20] MEDS: traMADol 50 MG Tablet PO ×3 (05:58→21:00)
--- NOTE | 2024-09-20 08:55 | NURSING ---
Resident received call that her virtual appt was cancelled for today. They told her they will re-schedule for next week and call her about new date/time.
[2024-09-20] MEDS: predniSONE 10 MG Tablet PO (09:10)
[2024-09-20] MEDS: Ciprofloxacin 250 MG Tablet PO ×2 (09:11→20:57)
[2024-09-20] MEDS: Polyethylene Glycol 3350 17 GM PACKET PO (09:12)
[2024-09-20] MEDS: Nystatin Powder 15gm Bottle 1 APPLIC TOPICAL ×2 (09:12→21:01)
[2024-09-20] MEDS: Senna/Docusate Sodium 1 Tablet PO ×2 (09:12→20:59)
[2024-09-20] MEDS: Meloxicam 7.5 MG Tablet PO (09:12)
[2024-09-20] MEDS: Enoxaparin 60 MG/0.6 ML Syringe SC ×2 (09:13→20:58)
[2024-09-20 09:22] VITALS: BP 133/55; PULSE 79; O2SAT 98
[2024-09-20 10:30] VITALS: PULSE 73; RESP 18; O2SAT 95
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
--- NOTE | 2024-09-20 14:57 | WOUNDNOTE ---
wound photo: right lower leg
[2024-09-20 15:03] VITALS: RESP 16; TEMP 36.7
[2024-09-20] MEDS: MELATONIN 10 MG TABLET PO (20:58)
[2024-09-20] MEDS: Amitriptyline 25 MG Tablet PO (20:58)
[2024-09-21] MEDS: traMADol 50 MG Tablet PO (05:28)
[2024-09-21] MEDS: Acetaminophen 500 MG Tablet 1000 MG PO ×3 (05:29→21:43)
[2024-09-21] MEDS: oxyCODONE 5 MG Tablet PO ×3 (06:19→19:47)
[2024-09-21] MEDS: Polyethylene Glycol 3350 17 GM PACKET PO (08:44)
[2024-09-21] MEDS: Ensure Plus High Protein 120 ML LIQUID PO ×2 (08:47→21:42)
[2024-09-21] MEDS: Ciprofloxacin 250 MG Tablet PO ×2 (08:48→21:42)
[2024-09-21] MEDS: predniSONE 10 MG Tablet PO (08:48)
[2024-09-21] MEDS: Enoxaparin 60 MG/0.6 ML Syringe SC ×2 (08:50→21:44)
[2024-09-21] MEDS: Senna/Docusate Sodium 1 Tablet PO ×2 (08:51→21:43)
[2024-09-21] MEDS: Meloxicam 7.5 MG Tablet PO (08:51)
[2024-09-21] MEDS: Nystatin Powder 15gm Bottle 1 APPLIC TOPICAL ×2 (08:51→21:43)
[2024-09-21 08:54] VITALS: BP 131/58; PULSE 84; O2SAT 97
--- NOTE | 2024-09-21 09:03 | NURSING ---
Called consult for Dr. Carranza, spoke with Simran and explained situation. She will pass info along to Dr. Carranza and call back to let nursing know what he'd like to do.
[2024-09-21 20:00] VITALS: PULSE 68; O2SAT 96
[2024-09-21] MEDS: Amitriptyline 25 MG Tablet PO (21:42)
[2024-09-21] MEDS: MELATONIN 10 MG TABLET PO (21:43)
[2024-09-22] MEDS: Acetaminophen 500 MG Tablet 1000 MG PO ×3 (05:37→22:59)
--- NOTE | 2024-09-22 08:44 | MDS.RN ---
Information for the MDS was obtained from review of the clinical record, interview of resident, staff, and direct observation of resident?s care.
[2024-09-22] MEDS: predniSONE 10 MG Tablet PO (09:56)
[2024-09-22] MEDS: Ensure Plus High Protein 120 ML LIQUID PO ×2 (09:56→22:54)
[2024-09-22] MEDS: Enoxaparin 60 MG/0.6 ML Syringe SC ×2 (09:56→22:54)
[2024-09-22] MEDS: Ciprofloxacin 250 MG Tablet PO ×2 (09:56→23:03)
[2024-09-22] MEDS: Polyethylene Glycol 3350 17 GM PACKET PO (09:57)
[2024-09-22] MEDS: Meloxicam 7.5 MG Tablet PO (09:57)
[2024-09-22] MEDS: Senna/Docusate Sodium 1 Tablet PO ×2 (09:57→22:58)
[2024-09-22] MEDS: Nystatin Powder 15gm Bottle 1 APPLIC TOPICAL ×2 (09:57→22:58)
[2024-09-22 10:30] VITALS: PULSE 72
--- NOTE | 2024-09-22 10:34 | NURSING ---
Addendum entered by Modesta Cannon 09/25/24 08:55: Late entry: received return call on Wednesday09/22/24 stating that resident would need to make appt to go see Dr. Rosales. Appt made for 09/27/24 and cot transport set up through [facility]. Transport sheet faxed to [facility]. Resident aware and on board with plan. Dr. Hoyos aware of CT results and in agreement with plan as well. Addendum entered by Modesta Cannon 09/22/24 11:29: Spoke with Rosalind at [facility], updated her on resident's situation and about wanting appt with Dr. Rosales. She will have the team review the xrays and CT from today and call back with what they would like to do. Updated resident. Original Note: Call back from Dr. Carranza's office with update that he will not see patient, recommends sending to ER because she has periprosthetic fracture. Discussed with resident who doesn't want to go back to [facility] physician, and is hesitant to go to ER. Let her know nurse would discuss with Dr. Hoyos. Paged Dr. Hoyos, received orders to get CT right knee and schedule appt for resident to see Dr. Rosales. Scan order faxed to CT. Updated resident.
[2024-09-22] MEDS: MELATONIN 10 MG TABLET PO (22:58)
[2024-09-22] MEDS: Amitriptyline 25 MG Tablet PO (23:03)
[2024-09-23] MEDS: oxyCODONE 5 MG Tablet PO (04:14)
[2024-09-23] MEDS: Acetaminophen 500 MG Tablet 1000 MG PO ×3 (05:09→22:05)
[2024-09-23 10:00] VITALS: PULSE 70; O2SAT 97
[2024-09-23] MEDS: Senna/Docusate Sodium 1 Tablet PO (10:10)
[2024-09-23] MEDS: Meloxicam 7.5 MG Tablet PO (10:10)
[2024-09-23] MEDS: Enoxaparin 60 MG/0.6 ML Syringe SC ×2 (10:10→22:06)
[2024-09-23] MEDS: Polyethylene Glycol 3350 17 GM PACKET PO (10:10)
[2024-09-23] MEDS: predniSONE 10 MG Tablet PO (10:10)
[2024-09-23] MEDS: Ciprofloxacin 250 MG Tablet PO ×2 (10:10→22:06)
[2024-09-23] MEDS: Nystatin Powder 15gm Bottle 1 APPLIC TOPICAL ×2 (10:10→22:05)
[2024-09-23] MEDS: Ensure Plus High Protein 120 ML LIQUID PO ×2 (10:10→22:06)
[2024-09-23 16:00] VITALS: BP 131/54; PULSE 78; RESP 20; TEMP 37.4; O2SAT 96
[2024-09-23] MEDS: Amitriptyline 25 MG Tablet PO (22:06)
[2024-09-23] MEDS: MELATONIN 10 MG TABLET PO (22:06)
[2024-09-23] MEDS: traMADol 50 MG Tablet PO (22:06)
[2024-09-24] MEDS: Acetaminophen 500 MG Tablet 1000 MG PO ×3 (05:37→21:03)
[2024-09-24 08:00] VITALS: BP 124/63; PULSE 78; RESP 18; O2SAT 99
[2024-09-24] MEDS: predniSONE 10 MG Tablet PO (09:15)
[2024-09-24] MEDS: Enoxaparin 60 MG/0.6 ML Syringe SC ×2 (09:15→21:05)
[2024-09-24] MEDS: Ciprofloxacin 250 MG Tablet PO ×2 (09:15→21:04)
[2024-09-24] MEDS: Meloxicam 7.5 MG Tablet PO (09:16)
[2024-09-24] MEDS: Nystatin Powder 15gm Bottle 1 APPLIC TOPICAL ×2 (09:16→21:06)
[2024-09-24] MEDS: Senna/Docusate Sodium 1 Tablet PO ×2 (09:16→21:05)
[2024-09-24] MEDS: Ensure Plus High Protein 120 ML LIQUID PO (09:18)
[2024-09-24] MEDS: Amitriptyline 25 MG Tablet PO (21:04)
[2024-09-24] MEDS: MELATONIN 10 MG TABLET PO (21:05)
[2024-09-24 22:32] VITALS: PULSE 81; RESP 16; O2SAT 98
--- NOTE | 2024-09-24 22:39 | NURSING ---
Dressing changed to RLE. Moderate amount of drainage noted. Area cleansed, Aquacel applied, covered with ABD and secured with Kerlix. Patient tolerated well.
[2024-09-25] MEDS: Acetaminophen 500 MG Tablet 1000 MG PO ×3 (05:50→22:32)
[2024-09-25 06:10] VITALS: RESP 16
--- NOTE | 2024-09-25 08:39 | NURSING ---
Call from Dr. Mackey office about virtual follow-up. Updated them that resident wanted to have an ortho physician in [place] so she would be following up with Dr. Rosales. Staff asked that RN fax over a note stating this. Note faxed to number provided stating resident switching to Dr. Rosales per her request.
[2024-09-25 09:25] VITALS: BP 139/59; PULSE 74; TEMP 37.7; O2SAT 98
[2024-09-25] MEDS: Enoxaparin 60 MG/0.6 ML Syringe SC ×2 (09:31→22:34)
[2024-09-25] MEDS: Ciprofloxacin 250 MG Tablet PO ×2 (09:31→22:30)
[2024-09-25] MEDS: Meloxicam 7.5 MG Tablet PO (09:32)
[2024-09-25] MEDS: Nystatin Powder 15gm Bottle 1 APPLIC TOPICAL ×2 (09:32→22:31)
[2024-09-25] MEDS: Senna/Docusate Sodium 1 Tablet PO ×2 (09:32→22:31)
[2024-09-25] MEDS: Ergocalciferol 1.25 MG (50, 000 UNIT) Capsule PO (09:32)
[2024-09-25] MEDS: Polyethylene Glycol 3350 17 GM PACKET PO (09:32)
[2024-09-25] MEDS: MELATONIN 10 MG TABLET PO (22:31)
[2024-09-25] MEDS: Amitriptyline 25 MG Tablet PO (22:31)
[2024-09-26] MEDS: Acetaminophen 500 MG Tablet 1000 MG PO ×3 (06:23→22:54)
[2024-09-26 06:38] LABS: Anion Gap 4 (5-15); BUN 27 mg/dL (7-18); BUN/Creat Ratio 27.8 RATIO (10-20); Chloride 108 mmol/L (98-107); Creatinine, Serum 0.97 mg/dL (0.55-1.02); EST Glomerular Filtration Rate 59 mL/min (>60); Est Glom Filt Rate - Afr Amer 72 mL/min (>60); Estimated Creatinine Clearance 67.23 ml/min; Glucose 95 mg/dL (74-106); Potassium 3.8 mmol/L (3.5-5.1); Sodium Level 140 mmol/L (136-145)
[2024-09-26 06:42] LABS: Absolute Lymphocyte Count 0.98 X10^3/uL (0.83-4.51); Absolute Neutrophil Count 3.7 X10^3/uL (2.0-7.7); Basophil# 0.05 X10^3/uL; Basophil% 0.9 % (0-1); Eosinophil# 0.26 X10^3/uL; Eosinophils% 4.6 % (0-5); Hematocrit 30.2 % (37-47); Hemoglobin 9.1 g/dL (12.0-15.0); Lymphocyte # 0.98 X10^3/ul (0.83-4.51); Lymphocyte % 17.3 % (19-41); Mean Corp Hgb Conc 30.1 g/dL (32-36); Mean Corpuscular Hgb 29.4 pg (27.0-32.0); Mean Corpuscular Volume 97.7 fL (81-99); Mean Platelet Vol. 11.6 fl (6.2-12.0); Monocyte# 0.65 X10^3/uL; Monocyte% 11.4 % (0-10); NRBC Flagged by Analyzer 0 % (0-5); Neutrophil % 65.1 % (47-70); Platelet Count 369 K/mm3 (150-450); RBC Distribution Width CV 15.6 % (11.6-14.6); RBC Distribution Width SD 55.4 fl (35.1-43.9); Red Blood Count 3.09 M/mm3 (4.2-5.4); White Blood Count 5.7 K/mm3 (4.4-11.0)
[2024-09-26 08:00] VITALS: BP 141/59; PULSE 74; RESP 16; TEMP 37.4; O2SAT 96
[2024-09-26] MEDS: Furosemide 40 MG Tablet PO (08:11)
[2024-09-26] MEDS: Potassium Chloride Oral Tablet 20 MEQ PO (08:11)
[2024-09-26] MEDS: Enoxaparin 60 MG/0.6 ML Syringe SC ×2 (08:11→22:56)
[2024-09-26] MEDS: Meloxicam 7.5 MG Tablet PO (08:11)
[2024-09-26] MEDS: Ciprofloxacin 250 MG Tablet PO (08:11)
[2024-09-26] MEDS: Nystatin Powder 15gm Bottle 1 APPLIC TOPICAL ×2 (08:12→22:55)
[2024-09-26 10:00] VITALS: PULSE 74; O2SAT 96
--- NOTE | 2024-09-26 14:57 | NURSING ---
Reviewed pneumonia vaccine info with resident. She doesn't want to receive any while on TCU, will discuss with her PCP after DC.
[2024-09-26 17:00] VITALS: BMI 40.5
[2024-09-26] MEDS: oxyCODONE 5 MG Tablet PO (20:08)
[2024-09-26] MEDS: MELATONIN 10 MG TABLET PO (22:56)
[2024-09-26] MEDS: Amitriptyline 25 MG Tablet PO (22:57)
[2024-09-27] MEDS: Acetaminophen 500 MG Tablet 1000 MG PO ×3 (06:30→22:38)
[2024-09-27] MEDS: Potassium Chloride Oral Tablet 20 MEQ PO (07:37)
[2024-09-27] MEDS: Enoxaparin 60 MG/0.6 ML Syringe SC ×2 (07:38→22:34)
[2024-09-27] MEDS: Nystatin Powder 15gm Bottle 1 APPLIC TOPICAL ×2 (07:39→22:37)
[2024-09-27] MEDS: Meloxicam 7.5 MG Tablet PO (07:39)
[2024-09-27 07:45] VITALS: BP 131/58; PULSE 82; O2SAT 96
[2024-09-27] MEDS: traMADol 50 MG Tablet PO (08:33)
--- NOTE | 2024-09-27 08:39 | NURSING ---
Addendum entered by Jonel Dc 09/27/24 10:32: PT RETURNED FROM APPOINTMENT AT 1025. PT AND TRANSPORT STATED OFFICE WILL FAX ORDERS TO TCU. Original Note: PT LEFT BY COT WITH [facility] AT 0845 TO APPOINTMENT WITH .
[2024-09-27] MEDS: Furosemide 40 MG Tablet PO (10:59)
[2024-09-27 11:00] VITALS: PULSE 70; RESP 18; O2SAT 96
--- NOTE | 2024-09-27 13:16 | NURSING ---
After appt, resident and family saying Dr. Rosales's office would be faxing over orders. Per resident she needs to go to [place] to have surgery. Haven't received fax. Called office to follow-up. Left requesting return call.
--- NOTE | 2024-09-27 14:37 | WOUNDNOTE ---
wound photo: right lower leg
[2024-09-27 15:59] VITALS: RESP 16; TEMP 37.4
[2024-09-27] MEDS: Amitriptyline 25 MG Tablet PO (22:36)
[2024-09-27] MEDS: MELATONIN 10 MG TABLET PO (22:37)
[2024-09-27] MEDS: Senna/Docusate Sodium 1 Tablet PO (22:39)
[2024-09-28] MEDS: Acetaminophen 500 MG Tablet 1000 MG PO ×3 (05:57→20:35)
[2024-09-28] MEDS: oxyCODONE 5 MG Tablet PO (06:00)
[2024-09-28 08:18] VITALS: BP 127/51; PULSE 85; RESP 16; TEMP 37.2; O2SAT 94
[2024-09-28] MEDS: Enoxaparin 60 MG/0.6 ML Syringe SC ×2 (08:20→20:35)
[2024-09-28] MEDS: Potassium Chloride Oral Tablet 20 MEQ PO (08:20)
[2024-09-28] MEDS: Furosemide 40 MG Tablet PO (08:21)
[2024-09-28] MEDS: Meloxicam 7.5 MG Tablet PO (08:21)
[2024-09-28] MEDS: Nystatin Powder 15gm Bottle 1 APPLIC TOPICAL ×2 (08:21→20:36)
[2024-09-28] MEDS: Amitriptyline 25 MG Tablet PO (20:35)
[2024-09-28] MEDS: MELATONIN 10 MG TABLET PO (20:35)
[2024-09-28] MEDS: Senna/Docusate Sodium 1 Tablet PO (20:36)
[2024-09-28] MEDS: traMADol 50 MG Tablet PO (23:39)
[2024-09-29] MEDS: oxyCODONE 5 MG Tablet PO ×3 (00:47→18:10)
[2024-09-29] MEDS: Acetaminophen 500 MG Tablet 1000 MG PO ×3 (06:37→21:50)
[2024-09-29 08:08] VITALS: BP 139/58; PULSE 89; RESP 18; TEMP 36.3; O2SAT 95
[2024-09-29] MEDS: Senna/Docusate Sodium 1 Tablet PO ×2 (08:10→21:50)
[2024-09-29] MEDS: Furosemide 40 MG Tablet PO (08:11)
[2024-09-29] MEDS: Potassium Chloride Oral Tablet 20 MEQ PO (08:11)
[2024-09-29] MEDS: Meloxicam 7.5 MG Tablet PO (08:11)
[2024-09-29] MEDS: Enoxaparin 60 MG/0.6 ML Syringe SC ×2 (08:11→21:50)
[2024-09-29] MEDS: Nystatin Powder 15gm Bottle 1 APPLIC TOPICAL ×2 (08:15→21:50)
[2024-09-29] MEDS: MELATONIN 10 MG TABLET PO (21:49)
[2024-09-29] MEDS: Amitriptyline 25 MG Tablet PO (21:50)
[2024-09-30] MEDS: Acetaminophen 500 MG Tablet 1000 MG PO ×3 (05:38→20:58)
[2024-09-30 08:21] VITALS: BP 133/52; PULSE 79; RESP 17; TEMP 37; O2SAT 95
[2024-09-30] MEDS: Potassium Chloride Oral Tablet 20 MEQ PO (08:23)
[2024-09-30] MEDS: Meloxicam 7.5 MG Tablet PO (08:24)
[2024-09-30] MEDS: Furosemide 40 MG Tablet PO (08:24)
[2024-09-30] MEDS: Enoxaparin 60 MG/0.6 ML Syringe SC ×2 (08:24→20:57)
[2024-09-30] MEDS: Nystatin Powder 15gm Bottle 1 APPLIC TOPICAL ×2 (08:25→20:58)
[2024-09-30] MEDS: Senna/Docusate Sodium 1 Tablet PO ×2 (08:25→20:57)
[2024-09-30] MEDS: Amitriptyline 25 MG Tablet PO (20:57)
[2024-09-30] MEDS: MELATONIN 10 MG TABLET PO (20:57)
[2024-09-30] MEDS: oxyCODONE 5 MG Tablet PO (20:57)
[2024-10-01] MEDS: Acetaminophen 500 MG Tablet 1000 MG PO ×3 (05:09→21:24)
[2024-10-01 10:14] VITALS: BP 140/59; PULSE 80; RESP 17; TEMP 36.8; O2SAT 94
[2024-10-01] MEDS: Potassium Chloride Oral Tablet 20 MEQ PO (10:16)
[2024-10-01] MEDS: Enoxaparin 60 MG/0.6 ML Syringe SC ×2 (10:17→21:24)
[2024-10-01] MEDS: Polyethylene Glycol 3350 17 GM PACKET PO (10:17)
[2024-10-01] MEDS: Nystatin Powder 15gm Bottle 1 APPLIC TOPICAL ×2 (10:17→21:24)
[2024-10-01] MEDS: Meloxicam 7.5 MG Tablet PO (10:17)
[2024-10-01] MEDS: Furosemide 40 MG Tablet PO (10:17)
[2024-10-01] MEDS: Senna/Docusate Sodium 1 Tablet PO ×2 (10:18→21:24)
--- NOTE | 2024-10-01 18:14 | NURSING ---
Updated patient of staff member tested positive for COVID. Patient denies nurse to call family with update. No questions/concerns at this time.
[2024-10-01] MEDS: MELATONIN 10 MG TABLET PO (21:24)
[2024-10-01] MEDS: Amitriptyline 25 MG Tablet PO (21:25)
[2024-10-02] MEDS: oxyCODONE 5 MG Tablet PO ×2 (00:56→23:48)
[2024-10-02] MEDS: Acetaminophen 500 MG Tablet 1000 MG PO ×3 (06:43→23:41)
[2024-10-02] MEDS: Meloxicam 7.5 MG Tablet PO (08:15)
[2024-10-02] MEDS: Ergocalciferol 1.25 MG (50, 000 UNIT) Capsule PO (08:15)
[2024-10-02] MEDS: Enoxaparin 60 MG/0.6 ML Syringe SC ×2 (08:15→23:42)
[2024-10-02] MEDS: Senna/Docusate Sodium 1 Tablet PO ×2 (08:15→23:41)
[2024-10-02] MEDS: Furosemide 40 MG Tablet PO (08:15)
[2024-10-02] MEDS: Potassium Chloride Oral Tablet 20 MEQ PO (08:15)
[2024-10-02] MEDS: Nystatin Powder 15gm Bottle 1 APPLIC TOPICAL ×2 (08:16→23:41)
[2024-10-02 09:44] VITALS: BP 139/63; PULSE 72; RESP 16; TEMP 36.1; O2SAT 95
--- NOTE | 2024-10-02 11:13 | NURSING ---
Left VM with Dr. Mackey office requesting return call about resident seeing him per suggestion from visit with Dr. Rosales.
--- NOTE | 2024-10-02 15:20 | WOUNDNOTE ---
wound photo: right lower leg
--- NOTE | 2024-10-02 17:40 | NURSING ---
Patient updated on new order for PRN Ativan 0.5mg PO at HS.
[2024-10-02 20:00] VITALS: PULSE 78; O2SAT 96
[2024-10-02] MEDS: Amitriptyline 25 MG Tablet PO (23:42)
[2024-10-02] MEDS: MELATONIN 10 MG TABLET PO (23:42)
[2024-10-03 05:48] LABS: Absolute Neutrophil Count 2.8 X10^3/uL (2.0-7.7); Basophil# 0.07 X10^3/uL; Basophil% 1.5 % (0-1); Eosinophils% 6.4 % (0-5); Hematocrit 30.5 % (37-47); Hemoglobin 9.4 g/dL (12.0-15.0); Lymphocyte % 17.1 % (19-41); Mean Corp Hgb Conc 30.8 g/dL (32-36); Mean Corpuscular Hgb 29.9 pg (27.0-32.0); Mean Corpuscular Volume 97.1 fL (81-99); Mean Platelet Vol. 10.4 fl (6.2-12.0); Monocyte# 0.66 X10^3/uL; Monocyte% 14.1 % (0-10); NRBC Flagged by Analyzer 0 % (0-5); Neutrophil # 2.84 X10^3/uL (2.7-7.7); Neutrophil % 60.5 % (47-70); Platelet Count 284 K/mm3 (150-450); RBC Distribution Width CV 15.7 % (11.6-14.6); RBC Distribution Width SD 55.5 fl (35.1-43.9); Red Blood Count 3.14 M/mm3 (4.2-5.4); White Blood Count 4.7 K/mm3 (4.4-11.0)
[2024-10-03] MEDS: Acetaminophen 500 MG Tablet 1000 MG PO ×3 (06:01→23:16)
[2024-10-03 06:08] LABS: Anion Gap 4 (5-15); BUN 19 mg/dL (7-18); BUN/Creat Ratio 20.2 RATIO (10-20); Calcium,Total 8.9 mg/dL (8.5-10.1); Chloride 105 mmol/L (98-107); Creatinine, Serum 0.94 mg/dL (0.55-1.02); EST Glomerular Filtration Rate 62 mL/min (>60); Est Glom Filt Rate - Afr Amer 75 mL/min (>60); Glucose 100 mg/dL (74-106); Potassium 3.6 mmol/L (3.5-5.1); Sodium Level 139 mmol/L (136-145)
[2024-10-03 06:34] VITALS: PULSE 70; O2SAT 95
[2024-10-03 08:30] VITALS: BP 126/58; PULSE 81; RESP 16; TEMP 36.6; O2SAT 95
[2024-10-03] MEDS: Glycerin/Hypromellose/PEG400 15 ml Bottle 2 DRP EACH EYE ×3 (09:12→23:17)
[2024-10-03] MEDS: Senna/Docusate Sodium 1 Tablet PO ×2 (09:12→23:16)
[2024-10-03] MEDS: Furosemide 40 MG Tablet PO (09:12)
[2024-10-03] MEDS: Enoxaparin 60 MG/0.6 ML Syringe SC ×2 (09:12→23:13)
[2024-10-03] MEDS: Meloxicam 7.5 MG Tablet PO (09:12)
[2024-10-03] MEDS: Nystatin Powder 15gm Bottle 1 APPLIC TOPICAL ×2 (09:13→23:15)
[2024-10-03] MEDS: Potassium Chloride Oral Tablet 20 MEQ PO (09:13)
--- NOTE | 2024-10-03 10:09 | NURSING ---
Addendum entered by Modesta Cannon 10/05/24 08:26: Called Dr. Mackey office, clarified that appt for 10/09 at 10am. Confirmed with physicians who say they'd cancelled transport because they needed paperwork. Let them know resident still needs transport and they agreed as long as they received transport form. Form faxed to [facility]. Original Note: This nurse spoke to Dr. Key Urias legal secretary receptionist. Appointment scheduled for October 11 and 1299.
[2024-10-03 17:00] VITALS: BMI 39.4
[2024-10-03] MEDS: Amitriptyline 25 MG Tablet PO (23:13)
[2024-10-03] MEDS: MELATONIN 10 MG TABLET PO (23:14)
[2024-10-03] MEDS: oxyCODONE 5 MG Tablet PO (23:20)
[2024-10-04] MEDS: Acetaminophen 500 MG Tablet 1000 MG PO ×3 (05:05→21:00)
[2024-10-04] MEDS: Senna/Docusate Sodium 1 Tablet PO ×2 (09:09→21:00)
[2024-10-04] MEDS: Polyethylene Glycol 3350 17 GM PACKET PO (09:09)
[2024-10-04] MEDS: Meloxicam 7.5 MG Tablet PO (09:09)
[2024-10-04] MEDS: Glycerin/Hypromellose/PEG400 15 ml Bottle 2 DRP EACH EYE ×3 (09:10→20:59)
[2024-10-04] MEDS: Enoxaparin 60 MG/0.6 ML Syringe SC ×2 (09:11→21:01)
[2024-10-04] MEDS: Nystatin Powder 15gm Bottle 1 APPLIC TOPICAL ×2 (09:12→21:00)
[2024-10-04 09:19] VITALS: BP 133/65; PULSE 77; O2SAT 96
[2024-10-04 16:00] VITALS: RESP 14; TEMP 36.4
[2024-10-04 21:00] VITALS: O2SAT 95
[2024-10-04] MEDS: oxyCODONE 5 MG Tablet PO (21:01)
[2024-10-04] MEDS: Amitriptyline 25 MG Tablet PO (21:01)
[2024-10-04] MEDS: MELATONIN 10 MG TABLET PO (21:01)
[2024-10-05] MEDS: Acetaminophen 500 MG Tablet 1000 MG PO ×3 (05:41→22:57)
[2024-10-05 08:57] VITALS: BP 139/58; PULSE 83; RESP 16; TEMP 36.4; O2SAT 96
[2024-10-05] MEDS: Enoxaparin 60 MG/0.6 ML Syringe SC ×2 (08:59→22:56)
[2024-10-05] MEDS: Polyethylene Glycol 3350 17 GM PACKET PO (09:00)
[2024-10-05] MEDS: oxyCODONE 5 MG Tablet PO (09:02)
[2024-10-05] MEDS: Meloxicam 7.5 MG Tablet PO (09:02)
[2024-10-05] MEDS: Senna/Docusate Sodium 1 Tablet PO ×2 (09:02→22:56)
[2024-10-05] MEDS: Nystatin Powder 15gm Bottle 1 APPLIC TOPICAL ×2 (09:03→22:59)
[2024-10-05 13:55] VITALS: PULSE 72; RESP 18; O2SAT 96
[2024-10-05 15:22] VITALS: RESP 18; TEMP 36.5
--- NOTE | 2024-10-05 16:24 | NURSING ---
PT HAS FINE CRACKLES TO LOWER POST. ASKED PT IF SHE WAS USING HER I.S. PT STATED NOT TODAY. EDUCATED PT ON USING THE I.S. PT STATED SHE UNDER STOOD. WILL CONTINUE TO MONITOR.
[2024-10-05] MEDS: MELATONIN 10 MG TABLET PO (22:56)
[2024-10-05] MEDS: traMADol 50 MG Tablet PO (22:57)
[2024-10-05] MEDS: Amitriptyline 25 MG Tablet PO (22:57)
[2024-10-05] MEDS: Glycerin/Hypromellose/PEG400 15 ml Bottle 2 DRP EACH EYE (22:58)
[2024-10-06] MEDS: Acetaminophen 500 MG Tablet 1000 MG PO ×3 (06:16→20:36)
[2024-10-06] MEDS: Glycerin/Hypromellose/PEG400 15 ml Bottle 2 DRP EACH EYE ×2 (06:16→08:41)
[2024-10-06] MEDS: oxyCODONE 5 MG Tablet PO (06:16)
--- NOTE | 2024-10-06 07:35 | NURSING ---
Upon administration of Oxycodone this am, resident informs this nurse4 that she lied about her pain level. She was not pleased when this nurse administered Tramadol last hs instead of Oxycodone as her reported pain level did not meet parameters for Oxycodone administration. In no acute distress. Will continue to monitor.
[2024-10-06 08:00] VITALS: BP 107/55; PULSE 80; RESP 18; TEMP 36.6; O2SAT 98
[2024-10-06] MEDS: Nystatin Powder 15gm Bottle 1 APPLIC TOPICAL ×2 (08:41→20:37)
[2024-10-06] MEDS: Enoxaparin 60 MG/0.6 ML Syringe SC ×2 (08:41→20:36)
[2024-10-06] MEDS: Meloxicam 7.5 MG Tablet PO (08:41)
[2024-10-06] MEDS: Senna/Docusate Sodium 1 Tablet PO ×2 (08:41→20:37)
--- NOTE | 2024-10-06 12:17 | NURSING ---
DR Mackey office returned call order xray 2 view RT knee and requesting CT scan results from 09/22 be burned on disc for appt on wednesday. spoke with radiology will do xray today and send disc when done.
--- NOTE | 2024-10-06 12:30 | RAD_ITS ---
INDICATION: follow up fracture -- 2view AP lateral EXAMINATION/TECHNIQUE: X-RAY - RIGHT XR Knee 1 or 2 Views 2 VIEWS COMPARISON: 09/19/2024 FINDINGS: SOFT TISSUES: Soft tissue swelling anteriorly. No definite joint effusion. No radiopaque foreign body. BONES/JOINTS: No acute fracture or subluxation.. Right knee arthroplasty in stable alignment and position since the previous exam. No sclerotic or destructive changes observed. RAD/Knee 1 or 2 Views IMPRESSION: Status post knee arthroplasty in stable alignment and position since the previous exam. Electronically Signed: Bernard Santillan MD at 17:39 EST ,
[2024-10-06] MEDS: Amitriptyline 25 MG Tablet PO (20:36)
[2024-10-06] MEDS: MELATONIN 10 MG TABLET PO (20:36)
[2024-10-07] MEDS: oxyCODONE 5 MG Tablet PO ×2 (00:37→22:09)
--- NOTE | 2024-10-07 00:58 | NURSING ---
Resident reports pain at 6/10 so she can be medicated w/ Oxycodone to be able to sleep. Facial expression relaxed in bed. In no acute distress. Will continue to monitor.
[2024-10-07] MEDS: Acetaminophen 500 MG Tablet 1000 MG PO ×3 (06:48→22:19)
[2024-10-07 10:15] VITALS: BP 126/52; PULSE 73; RESP 18; TEMP 36.7; O2SAT 95
[2024-10-07 10:30] VITALS: O2SAT 95
[2024-10-07] MEDS: Enoxaparin 60 MG/0.6 ML Syringe SC ×2 (10:35→22:15)
[2024-10-07] MEDS: Senna/Docusate Sodium 1 Tablet PO ×2 (10:35→22:18)
[2024-10-07] MEDS: Meloxicam 7.5 MG Tablet PO (10:35)
[2024-10-07] MEDS: Glycerin/Hypromellose/PEG400 15 ml Bottle 2 DRP EACH EYE ×2 (10:36→20:38)
[2024-10-07] MEDS: Nystatin Powder 15gm Bottle 1 APPLIC TOPICAL ×2 (10:54→20:43)
[2024-10-07] MEDS: Amitriptyline 25 MG Tablet PO (22:18)
[2024-10-07] MEDS: MELATONIN 10 MG TABLET PO (22:19)
[2024-10-08] MEDS: Acetaminophen 500 MG Tablet 1000 MG PO ×3 (05:19→21:56)
[2024-10-08 08:00] VITALS: BP 139/56; PULSE 78; RESP 18; TEMP 36.3; O2SAT 96
[2024-10-08] MEDS: Senna/Docusate Sodium 1 Tablet PO ×2 (08:55→21:56)
[2024-10-08] MEDS: Nystatin Powder 15gm Bottle 1 APPLIC TOPICAL ×2 (08:55→20:11)
[2024-10-08] MEDS: Enoxaparin 60 MG/0.6 ML Syringe SC ×2 (08:55→21:57)
[2024-10-08] MEDS: Meloxicam 7.5 MG Tablet PO (08:55)
[2024-10-08] MEDS: Glycerin/Hypromellose/PEG400 15 ml Bottle 2 DRP EACH EYE ×3 (08:56→20:10)
[2024-10-08 14:05] VITALS: PULSE 78; RESP 18; O2SAT 96
--- NOTE | 2024-10-08 14:45 | NURSING ---
Dressing to RLE changed per orders. Tolerated well. No odor noted. Scant amount of drainage noted on old bandage. Area cleansed and dried. Adaptic, ABD, and kerlix applied per orders. Denies pain/discomfort. No concerns noted/voiced.
[2024-10-08] MEDS: Amitriptyline 25 MG Tablet PO (21:56)
[2024-10-08] MEDS: MELATONIN 10 MG TABLET PO (21:56)
[2024-10-08] MEDS: oxyCODONE 5 MG Tablet PO (22:03)
[2024-10-09] MEDS: Acetaminophen 500 MG Tablet 1000 MG PO ×3 (05:31→20:06)
[2024-10-09 06:14] VITALS: PULSE 74; O2SAT 94
[2024-10-09] MEDS: Meloxicam 7.5 MG Tablet PO (07:43)
[2024-10-09] MEDS: Ergocalciferol 1.25 MG (50, 000 UNIT) Capsule PO (07:43)
[2024-10-09] MEDS: Senna/Docusate Sodium 1 Tablet PO ×2 (07:43→20:06)
[2024-10-09] MEDS: Enoxaparin 60 MG/0.6 ML Syringe SC ×2 (07:43→20:06)
[2024-10-09] MEDS: Nystatin Powder 15gm Bottle 1 APPLIC TOPICAL ×2 (07:44→20:07)
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
[2024-10-09] MEDS: oxyCODONE 5 MG Tablet PO ×2 (08:36→23:44)
--- NOTE | 2024-10-09 09:04 | NURSING ---
[facility] arrived to transport pt. to appt. This nurse was asked about pt. code status informed [facility] transport she was a DNRCC-A, but stated this nurse would confirm with pt. This nurse spoke to pt. regarding code status pt. stated she would like to be resuscitated and be full code. Order changed, [facility] transport updated.
[2024-10-09 11:38] VITALS: BP 145/66; PULSE 75; RESP 18; TEMP 36.3; O2SAT 95
[2024-10-09] MEDS: Amitriptyline 25 MG Tablet PO (20:05)
[2024-10-09] MEDS: MELATONIN 10 MG TABLET PO (20:06)
[2024-10-09] MEDS: Glycerin/Hypromellose/PEG400 15 ml Bottle 2 DRP EACH EYE (20:10)
[2024-10-10] MEDS: Acetaminophen 500 MG Tablet 1000 MG PO ×3 (05:56→20:16)
[2024-10-10 06:14] LABS: Absolute Lymphocyte Count 0.73 X10^3/uL (0.83-4.51); Absolute Neutrophil Count 2.1 X10^3/uL (2.0-7.7); Basophil# 0.05 X10^3/uL; Basophil% 1.3 % (0-1); Eosinophil# 0.31 X10^3/uL; Eosinophils% 8.2 % (0-5); Hematocrit 32.3 % (37-47); Lymphocyte # 0.73 X10^3/ul (0.83-4.51); Lymphocyte % 19.4 % (19-41); Mean Corpuscular Hgb 30.6 pg (27.0-32.0); Mean Corpuscular Volume 98.8 fL (81-99); Mean Platelet Vol. 10.8 fl (6.2-12.0); Monocyte# 0.53 X10^3/uL; Monocyte% 14.1 % (0-10); NRBC Flagged by Analyzer 0 % (0-5); Neutrophil # 2.13 X10^3/uL (2.7-7.7); Neutrophil % 56.7 % (47-70); Platelet Count 262 K/mm3 (150-450); RBC Distribution Width CV 15.7 % (11.6-14.6); RBC Distribution Width SD 56.8 fl (35.1-43.9); Red Blood Count 3.27 M/mm3 (4.2-5.4); White Blood Count 3.8 K/mm3 (4.4-11.0)
[2024-10-10 06:36] LABS: Anion Gap 4 (5-15); BUN 15 mg/dL (7-18); BUN/Creat Ratio 15.8 RATIO (10-20); Calcium,Total 9.4 mg/dL (8.5-10.1); Chloride 108 mmol/L (98-107); Creatinine, Serum 0.95 mg/dL (0.55-1.02); EST Glomerular Filtration Rate 61 mL/min (>60); Est Glom Filt Rate - Afr Amer 74 mL/min (>60); Estimated Creatinine Clearance 68.11 ml/min; Glucose 93 mg/dL (74-106); Potassium 3.8 mmol/L (3.5-5.1); Sodium Level 139 mmol/L (136-145)
--- NOTE | 2024-10-10 09:40 | NURSING ---
Addendum entered by Modesta Cannon 10/11/24 07:32: Reported from off going WELDER REPAIR that [facility] had called this morning and asked about picking up resident this morning. Nurse reminded them the transport was needed Saturday 10/13. They had some other questions and asked that someone who knows what's going medication technician them later. This RN called physicians. They asked where they were bringing resident, let them know if was [facility] main entrance. They then said they had all the info they needed. Clarified that they were going to arrive 0830 on 10/13/24, they confirmed they would. Addendum entered by Modesta Cannon 10/10/24 10:23: Call back from Gail, resident is scheduled for surgery with Dr. Miller WednesdaySeptember 13 at noon at [facility]. She needs to arrive at 10am. Needs to be NPO at midnight, NO meds to be given AM of surgery. Hold lovenox AM of surgery. She will be admitted to hospital after surgery. Resident updated. [facility] transport set up for pickup at 0830. Gail direct number [phone] for any questions. Original Note: Left VM with Judy from surgeon's office requesting a return call about surgery details.
[2024-10-10] MEDS: Meloxicam 7.5 MG Tablet PO (10:16)
[2024-10-10] MEDS: Polyethylene Glycol 3350 17 GM PACKET PO (10:16)
[2024-10-10] MEDS: Senna/Docusate Sodium 1 Tablet PO ×2 (10:16→20:15)
[2024-10-10] MEDS: Nystatin Powder 15gm Bottle 1 APPLIC TOPICAL ×2 (10:16→20:19)
[2024-10-10] MEDS: Enoxaparin 60 MG/0.6 ML Syringe SC ×2 (10:17→20:16)
[2024-10-10 10:37] VITALS: BP 142/65; PULSE 85; O2SAT 95
[2024-10-10 10:41] VITALS: BMI 38.0
[2024-10-10] MEDS: Glycerin/Hypromellose/PEG400 15 ml Bottle 2 DRP EACH EYE ×2 (13:20→20:18)
--- NOTE | 2024-10-10 15:28 | WOUNDNOTE ---
wound photo: right bates
[2024-10-10 16:00] VITALS: RESP 14; TEMP 36.6
[2024-10-10] MEDS: Amitriptyline 25 MG Tablet PO (20:16)
[2024-10-10] MEDS: MELATONIN 10 MG TABLET PO (20:16)
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
[2024-10-10] MEDS: oxyCODONE 5 MG Tablet PO (21:58)
[2024-10-11] MEDS: Acetaminophen 500 MG Tablet 1000 MG PO ×3 (06:00→22:29)
[2024-10-11] MEDS: Glycerin/Hypromellose/PEG400 15 ml Bottle 2 DRP EACH EYE (06:03)
[2024-10-11] MEDS: Magnesium Hydroxide 30 ML UDC PO (09:49)
[2024-10-11] MEDS: Polyethylene Glycol 3350 17 GM PACKET PO (09:51)
[2024-10-11] MEDS: Nystatin Powder 15gm Bottle 1 APPLIC TOPICAL ×2 (09:51→22:29)
[2024-10-11] MEDS: Senna/Docusate Sodium 1 Tablet PO ×2 (09:51→22:29)
[2024-10-11] MEDS: Enoxaparin 60 MG/0.6 ML Syringe SC ×2 (09:52→22:30)
[2024-10-11] MEDS: Meloxicam 7.5 MG Tablet PO (09:53)
[2024-10-11 09:59] VITALS: BP 136/65; PULSE 82; O2SAT 94
[2024-10-11 10:00] VITALS: PULSE 82; RESP 18; O2SAT 94
--- NOTE | 2024-10-11 13:44 | NURSING ---
Addendum entered by Jonel Dc 10/11/24 17:06: NO RESULTS FROM THE MOM. PT AGREED TO TAKE THE MAG CITRATE. WILL CONTINUE TO MONITOR. Original Note: PT HAS NOT HAD A BM IN 4 DAYS. PT REQUESTED MOM DID NOT WANT A SSE OR MAG CITRATE AT THIS TIME. AWARE,NEW ORDER FOR MOM X1 AND GIVEN. WILL CONTINUE TO MONITOR.
[2024-10-11 16:00] VITALS: RESP 14; TEMP 36.9
[2024-10-11] MEDS: Magnesium Citrate 300 ML PO (17:03)
[2024-10-11] MEDS: Amitriptyline 25 MG Tablet PO (22:29)
[2024-10-11] MEDS: MELATONIN 10 MG TABLET PO (22:29)
[2024-10-11] MEDS: oxyCODONE 5 MG Tablet PO (22:35)
[2024-10-12] MEDS: Acetaminophen 500 MG Tablet 1000 MG PO ×3 (06:03→23:20)
[2024-10-12] MEDS: Meloxicam 7.5 MG Tablet PO (08:55)
[2024-10-12] MEDS: Nystatin Powder 15gm Bottle 1 APPLIC TOPICAL ×2 (08:55→23:15)
[2024-10-12] MEDS: Enoxaparin 60 MG/0.6 ML Syringe SC ×2 (08:55→23:16)
[2024-10-12] MEDS: Glycerin/Hypromellose/PEG400 15 ml Bottle 2 DRP EACH EYE ×2 (08:55→14:55)
[2024-10-12 11:00] VITALS: BP 128/52; PULSE 83; RESP 18; TEMP 36.4; O2SAT 97
--- NOTE | 2024-10-12 16:05 | CASEMGMT ---
BIMS () and PHQ2 (0) interviews completed on this date for MDS assessment. GONSALO Tovar
[2024-10-12 20:00] VITALS: PULSE 84; O2SAT 94
[2024-10-12] MEDS: oxyCODONE 5 MG Tablet PO (23:14)
[2024-10-12] MEDS: Senna/Docusate Sodium 1 Tablet PO (23:15)
[2024-10-12] MEDS: Amitriptyline 25 MG Tablet PO (23:16)
[2024-10-12] MEDS: MELATONIN 10 MG TABLET PO (23:16)
[2024-10-13 06:49] VITALS: PULSE 74; RESP 18; O2SAT 94
[2024-10-13 07:56] VITALS: BP 140/62; PULSE 72; RESP 16; TEMP 36.8; O2SAT 95
--- NOTE | 2024-10-13 08:46 | NURSING ---
PT LEFT BY COT WITH [facility] AT 0845 FOR TRANSPORT UP TO [place] FOR SURGERY.
--- NOTE | 2024-10-13 09:12 | MDS.RN ---
Pain assessment for MDS completed today.
== END 2024-10-13 08:40 | disposition short-term general hospital (02) | DRG 560 ==
PROVIDERS: Admitting Provider Family Medicine Geriatric Medicine; PCP Nurse Practitioner Family; Referring Provider Family Medicine Geriatric Medicine; Visit Provider Family Medicine Geriatric Medicine
DX: S82.141D Displaced bicondylar fracture of right tibia, subsequent encounter for closed fracture with routine healing (principal); Z68.41 Body mass index [BMI] 40.0-44.9, adult; N39.0 Urinary tract infection, site not specified; B35.4 Tinea corporis; F32.A Depression, unspecified; E55.9 Vitamin D deficiency, unspecified; E66.01 Morbid (severe) obesity due to excess calories; M19.90 Unspecified osteoarthritis, unspecified site; F41.9 Anxiety disorder, unspecified; R14.3 Flatulence; S82.142D Displaced bicondylar fracture of left tibia, subsequent encounter for closed fracture with routine healing; Z79.52 Long term (current) use of systemic steroids; V99.XXXD Unspecified transport accident, subsequent encounter; Z79.899 Other long term (current) drug therapy; G47.00 Insomnia, unspecified; Z23 Encounter for immunization
CPT/HCPCS: 36415; 73560; 73564; 80048; 81001; 82306; 85025; 87077; 87086; 87088; 87186; 87811; 90480; 90662; 91322; 97110; 97116; 97162; 97166; 97530; 97535; 97802

== ENCOUNTER → 2024-09-22 | Outpatient (CLI) | payer MEDICARE, OTHER, SELFPAY ==
--- NOTE | 2024-09-22 10:37 | CT_ITS ---
STUDY: CT RIGHT KNEE WITHOUT CONTRAST REASON FOR EXAM: Female, 74 years old. TIBIAL PLATEAU FX RADIATION DOSAGE (If Supplied By Facility): CTDIvol = ( 15.49 ) mGy, DLP = ( 420.14 ) mGycm TECHNIQUE: Transaxial CT imaging of the knee was performed. Coronal and sagittal images were reformatted. Individualized dose optimization techniques were used for this CT. COMPARISON: X-ray 09/19/2024 FINDINGS: Status post total knee arthroplasty.Slightly medially displaced oblique fracture of the proximal tibia through the proximal metaphysis and surrounding the stem of the prosthesis. Normal proximal tibiofibular articulation. There is a small joint effusion. The quadriceps tendon is grossly normal. The patellar tendon is grossly normal. Normal Hoffa''s fat pad. The soft tissues are unremarkable. CT/Extremity Lower without Contra IMPRESSION: Acute slightly medially displaced oblique fracture of the proximal metaphysis of the tibia surrounding the stem of the arthroplasty prosthesis. Electronically Signed: Gaston Elise MD at 12:00 EST ,
== END | disposition home or self-care (01) ==
PROVIDERS: PCP Nurse Practitioner Family; Referring Provider Family Medicine Geriatric Medicine; Visit Provider Family Medicine Geriatric Medicine
DX: S82.231A Displaced oblique fracture of shaft of right tibia, initial encounter for closed fracture (principal); X58.XXXA Exposure to other specified factors, initial encounter
CPT/HCPCS: 73700

== ENCOUNTER 2024-10-18 14:20 | Inpatient (IN) | payer MEDICARE, OTHER, SELFPAY ==
[2024-10-18 14:27] VITALS: BP 161/63; PULSE 81; RESP 17; TEMP 36.1; O2SAT 95
--- NOTE | 2024-10-18 15:00 | NURSING ---
Called Dr. Miller's office to clarify follow-up appts. Says needs 2 week follow-up with Dr. Miller but paperwork also shows has an appt with Dr. Mackey on 10/23/24. Await return call.
[2024-10-18] MEDS: Enoxaparin 60 MG/0.6 ML Syringe SC (17:29)
--- NOTE | 2024-10-18 18:54 | NURSING ---
Patient C/O nausea and stomach upset at this time. Georgina claire and saltine crackers provided at this time.
--- NOTE | 2024-10-18 20:24 | NURSING ---
Patient c/o nausea all day, denies emesis. Requests med for nausea. Dr. Hoyos notified via phone and Dr. Hoyos input order for Zofran.
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
--- NOTE | 2024-10-18 20:40 | RAD_ITS ---
EXAM: XR ABDOMEN, 1 VIEW CLINICAL INDICATION: Nausea TECHNIQUE: Frontal supine view of the abdomen/pelvis. COMPARISON: No relevant prior studies available. FINDINGS: GASTROINTESTINAL TRACT: Moderate colonic stool and gas and mild gastric distention without evidence of small bowel obstruction, nonspecific. ORGANS: Normal as visualized. No organomegaly. No abnormal calcifications. BONES/JOINTS: Degenerative changes in the spine and pelvis. SOFT TISSUES: No acute pathology. RAD/Abdomen Single View IMPRESSION: Moderate colonic stool and gas and mild gastric distention without evidence of small bowel obstruction, nonspecific. Electronically Signed: Gerald Guaman DO at 21:24 EST ,
[2024-10-18] MEDS: Ondansetron ODT 4 MG Tablet 8 MG PO (20:52)
[2024-10-18] MEDS: Nystatin Powder 15gm Bottle 1 APPLIC TOPICAL (21:41)
[2024-10-18] MEDS: Acetaminophen 500 MG Tablet PO (21:41)
[2024-10-18] MEDS: MELATONIN 10 MG TABLET PO (21:42)
[2024-10-18] MEDS: Senna/Docusate Sodium 1 Tablet 2 TABLET PO (21:42)
[2024-10-18] MEDS: Amitriptyline 25 MG Tablet PO (21:42)
[2024-10-19] MEDS: Acetaminophen 500 MG Tablet PO ×3 (05:14→21:15)
[2024-10-19] MEDS: Enoxaparin 60 MG/0.6 ML Syringe SC ×2 (05:14→17:52)
[2024-10-19 05:56] LABS: Absolute Lymphocyte Count 0.68 X10^3/uL (0.83-4.51); Absolute Neutrophil Count 2.6 X10^3/uL (2.0-7.7); Basophil# 0.04 X10^3/uL; Basophil% 0.9 % (0-1); Eosinophil# 0.19 X10^3/uL; Eosinophils% 4.4 % (0-5); Hematocrit 26.9 % (37-47); Hemoglobin 8.1 g/dL (12.0-15.0); Lymphocyte # 0.68 X10^3/ul (0.83-4.51); Lymphocyte % 15.6 % (19-41); Mean Corp Hgb Conc 30.1 g/dL (32-36); Mean Corpuscular Hgb 29.3 pg (27.0-32.0); Mean Corpuscular Volume 97.5 fL (81-99); Monocyte# 0.79 X10^3/uL; Monocyte% 18.2 % (0-10); NRBC Flagged by Analyzer 0 % (0-5); Neutrophil % 59.8 % (47-70); Platelet Count 434 K/mm3 (150-450); RBC Distribution Width CV 15.1 % (11.6-14.6); RBC Distribution Width SD 53.9 fl (35.1-43.9); Red Blood Count 2.76 M/mm3 (4.2-5.4); White Blood Count 4.4 K/mm3 (4.4-11.0)
[2024-10-19 06:41] LABS: Anion Gap 4 (5-15); BUN 12 mg/dL (7-18); BUN/Creat Ratio 13.5 RATIO (10-20); Calcium,Total 9.1 mg/dL (8.5-10.1); Chloride 102 mmol/L (98-107); Creatinine, Serum 0.89 mg/dL (0.55-1.02); EST Glomerular Filtration Rate 66 mL/min (>60); Est Glom Filt Rate - Afr Amer 79 mL/min (>60); Glucose 102 mg/dL (74-106); Potassium 3.7 mmol/L (3.5-5.1); Sodium Level 135 mmol/L (136-145)
[2024-10-19] MEDS: Senna/Docusate Sodium 1 Tablet 2 TABLET PO ×2 (09:08→21:15)
[2024-10-19] MEDS: Glycerin/Hypromellose/PEG400 15 ml Bottle 2 DRP EACH EYE ×3 (09:09→22:28)
[2024-10-19] MEDS: Nystatin Powder 15gm Bottle 1 APPLIC TOPICAL ×2 (09:10→21:21)
[2024-10-19] MEDS: Tuberculin,Purif.prot.deriv. 50 TU/ML Vial 0.1 ML ID (09:39)
[2024-10-19 13:11] VITALS: O2SAT 93
[2024-10-19 14:36] VITALS: BP 143/60; PULSE 82; RESP 16; TEMP 36.4; O2SAT 94
[2024-10-19 14:41] VITALS: BMI 37.1
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
[2024-10-19] MEDS: Bisacodyl 10 MG Suppository RC (17:52)
[2024-10-19] MEDS: Ondansetron ODT 4 MG Tablet 8 MG PO (17:55)
[2024-10-19] MEDS: Amitriptyline 25 MG Tablet PO (21:15)
[2024-10-19] MEDS: MELATONIN 10 MG TABLET PO (21:15)
[2024-10-19] MEDS: oxyCODONE 5 MG Tablet PO (21:20)
[2024-10-20] MEDS: Acetaminophen 500 MG Tablet PO ×2 (05:46→16:28)
[2024-10-20] MEDS: Enoxaparin 60 MG/0.6 ML Syringe SC ×2 (05:46→18:12)
--- NOTE | 2024-10-20 08:10 | NS ---
MST score = 5
[2024-10-20 08:12] LABS: Hematocrit 26.6 % (37-47); Hemoglobin 8.1 g/dL (12.0-15.0)
--- NOTE | 2024-10-20 09:28 | NURSING ---
Traveling Construction Superintendent Note; Activity Asset: Sol Leblanc has returned from her surgery and remains independent in her choice of daily activities. She has her smartphone, books, and watches tv. Her family and denominational family visits weekly. Deana welcomes visits from the avionics systems integration specialist and therapy dog when available. Staff will remind her of social activities, in room activities and respect her right to say no.
[2024-10-20 09:38] VITALS: BP 133/52; RESP 16; TEMP 36.2; O2SAT 96
[2024-10-20] MEDS: Senna/Docusate Sodium 1 Tablet 2 TABLET PO ×2 (09:42→21:52)
[2024-10-20] MEDS: Nystatin Powder 15gm Bottle 1 APPLIC TOPICAL ×2 (09:43→21:51)
[2024-10-20] MEDS: Glycerin/Hypromellose/PEG400 15 ml Bottle 2 DRP EACH EYE ×2 (09:44→21:53)
[2024-10-20] MEDS: Polyethylene Glycol 3350 17 GM PACKET PO (09:51)
[2024-10-20 14:00] VITALS: BMI 37.1
[2024-10-20] MEDS: Bisacodyl 10 MG Suppository RC (16:28)
[2024-10-20] MEDS: oxyCODONE 5 MG Tablet PO (21:50)
[2024-10-20] MEDS: Amitriptyline 25 MG Tablet PO (21:52)
[2024-10-20] MEDS: MELATONIN 10 MG TABLET PO (21:52)
[2024-10-20 22:00] VITALS: PULSE 85; RESP 16; O2SAT 99
[2024-10-21] MEDS: Acetaminophen 500 MG Tablet PO ×3 (05:19→20:24)
[2024-10-21] MEDS: Glycerin/Hypromellose/PEG400 15 ml Bottle 2 DRP EACH EYE ×3 (05:19→20:26)
[2024-10-21] MEDS: Enoxaparin 60 MG/0.6 ML Syringe SC (05:19)
[2024-10-21] MEDS: Polyethylene Glycol 3350 17 GM PACKET PO (10:06)
[2024-10-21] MEDS: Senna/Docusate Sodium 1 Tablet 2 TABLET PO ×2 (10:06→20:24)
[2024-10-21] MEDS: Nystatin Powder 15gm Bottle 1 APPLIC TOPICAL ×2 (10:06→20:25)
[2024-10-21] MEDS: Iron Polysaccharide Complex 150 MG CAPSULE PO (10:12)
[2024-10-21] MEDS: Ondansetron ODT 4 MG Tablet 8 MG PO (10:18)
[2024-10-21 10:21] VITALS: BP 132/60; PULSE 96; O2SAT 98
[2024-10-21 14:00] VITALS: PULSE 90; RESP 16; O2SAT 92
[2024-10-21 16:00] VITALS: RESP 18; TEMP 36.6
--- NOTE | 2024-10-21 16:38 | NURSING ---
PT HAS BEEN NAUSEATED TODAY. GAVE PRN ZOFRAN,PT ALSO STATED SHE WANTED TO HAVE A BM AND HASNT BEEN ABLE. STATED TO PT HER LAST BM WAS 10/20/24. PT STATED WELL I WANT TO DO MORE I NEED SOME THING. STATED TO PT SHE HAD HER SCHEDULED MIRALAX AND SENNA THIS MORNING. ALSO STATED TO PT SHE NEEDED TO GET OUT OF BED AND MOVE WHICH ALSO HELPS AND THAT IF SHE DIDNT SHE COULD GET PNEUMONIA. PT JUST LOOKED AT THIS NURSE AND SHOCK HER HEAD AND MADE A FACE. THIS NURSE ASKED PT IF SHE WANTS TO GET BETTER TO GET HOME,PT STATED YES. THIS NURSE STATED TO PT THEN YOU NEED TO GET UP OUT OF BED EVERY DAY AND IT WILL HELP YOU GET STRONGER. PT STATED OK AND CALLED FOR THE AIDS TO GET HER UP IN CHAIR. PT ASKED THIS NURSE IF SHE COULD HAVE SOME THING LATER FOR A BM,THIS NURSE STATED SHE WOULD GIVE HER A PRN AFTER SHE GOT BACK IN BED. PT STATED OK. HELPED AIDS GET PT UP IN RECLINER WITH ROSHNI.
[2024-10-21] MEDS: MELATONIN 10 MG TABLET PO (20:25)
[2024-10-21] MEDS: Amitriptyline 25 MG Tablet PO (20:25)
[2024-10-21] MEDS: Bisacodyl 10 MG Suppository RC (20:29)
[2024-10-22] MEDS: oxyCODONE 5 MG Tablet PO ×2 (01:07→21:10)
[2024-10-22] MEDS: Acetaminophen 500 MG Tablet PO ×3 (04:38→21:04)
[2024-10-22] MEDS: Magnesium Hydroxide 30 ML UDC PO (04:41)
[2024-10-22] MEDS: Iron Polysaccharide Complex 150 MG CAPSULE PO (09:49)
[2024-10-22] MEDS: Senna/Docusate Sodium 1 Tablet 2 TABLET PO ×2 (09:51→21:05)
[2024-10-22] MEDS: Ergocalciferol 1.25 MG (50, 000 UNIT) Capsule PO (09:51)
[2024-10-22] MEDS: Polyethylene Glycol 3350 17 GM PACKET PO (09:51)
[2024-10-22] MEDS: Nystatin Powder 15gm Bottle 1 APPLIC TOPICAL ×2 (09:51→21:05)
[2024-10-22] MEDS: Glycerin/Hypromellose/PEG400 15 ml Bottle 2 DRP EACH EYE ×2 (09:52→21:06)
[2024-10-22 10:12] VITALS: BP 144/66; PULSE 80; RESP 18; O2SAT 96
[2024-10-22 13:40] VITALS: RESP 16; TEMP 37.1
[2024-10-22] MEDS: Amitriptyline 25 MG Tablet PO (21:04)
[2024-10-22] MEDS: MELATONIN 10 MG TABLET PO (21:04)
[2024-10-23] MEDS: Acetaminophen 500 MG Tablet PO ×3 (05:43→22:20)
[2024-10-23] MEDS: Enoxaparin 40 MG/0.4 ML Syringe SC (05:43)
[2024-10-23 05:46] LABS: Hematocrit 26.5 % (37-47); Hemoglobin 8.3 g/dL (12.0-15.0)
--- NOTE | 2024-10-23 07:31 | NURSING ---
Dressings to right knee and right lower extremity changed this morning per orders
[2024-10-23 08:56] VITALS: BP 141/53; PULSE 90; RESP 18; TEMP 36.6; O2SAT 97
[2024-10-23] MEDS: Iron Polysaccharide Complex 150 MG CAPSULE PO (08:59)
[2024-10-23] MEDS: Polyethylene Glycol 3350 17 GM PACKET PO (08:59)
[2024-10-23] MEDS: Glycerin/Hypromellose/PEG400 15 ml Bottle 2 DRP EACH EYE ×2 (09:00→15:31)
[2024-10-23] MEDS: Senna/Docusate Sodium 1 Tablet 2 TABLET PO ×2 (09:00→22:21)
[2024-10-23] MEDS: Nystatin Powder 15gm Bottle 1 APPLIC TOPICAL ×2 (09:00→22:21)
[2024-10-23] MEDS: SimETHICONE 80 MG Chewable Tablet PO ×3 (09:03→17:46)
[2024-10-23] MEDS: Ondansetron ODT 4 MG Tablet 8 MG PO (12:51)
[2024-10-23] MEDS: oxyCODONE 5 MG Tablet PO (22:19)
[2024-10-23] MEDS: MELATONIN 10 MG TABLET PO (22:20)
[2024-10-23] MEDS: Amitriptyline 25 MG Tablet PO (22:20)
[2024-10-24] MEDS: Acetaminophen 500 MG Tablet PO ×3 (06:15→22:59)
[2024-10-24] MEDS: Enoxaparin 40 MG/0.4 ML Syringe SC (06:15)
[2024-10-24] MEDS: SimETHICONE 80 MG Chewable Tablet PO ×3 (07:56→16:48)
[2024-10-24] MEDS: Iron Polysaccharide Complex 150 MG CAPSULE PO (07:57)
[2024-10-24] MEDS: Nystatin Powder 15gm Bottle 1 APPLIC TOPICAL ×2 (07:57→23:00)
[2024-10-24] MEDS: Senna/Docusate Sodium 1 Tablet 2 TABLET PO ×2 (07:57→22:59)
[2024-10-24] MEDS: Polyethylene Glycol 3350 17 GM PACKET PO (07:57)
--- NOTE | 2024-10-24 10:52 | MDS.RN ---
Pain interview for MDS completed.
[2024-10-24 14:18] VITALS: BMI 37.8
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
[2024-10-24] MEDS: oxyCODONE 5 MG Tablet PO (23:00)
[2024-10-24] MEDS: Amitriptyline 25 MG Tablet PO (23:00)
[2024-10-24] MEDS: MELATONIN 10 MG TABLET PO (23:00)
[2024-10-25] MEDS: Enoxaparin 40 MG/0.4 ML Syringe SC (06:21)
[2024-10-25] MEDS: Acetaminophen 500 MG Tablet PO ×3 (06:22→22:00)
[2024-10-25] MEDS: Iron Polysaccharide Complex 150 MG CAPSULE PO (09:24)
[2024-10-25] MEDS: SimETHICONE 80 MG Chewable Tablet PO ×3 (09:24→17:43)
[2024-10-25] MEDS: Nystatin Powder 15gm Bottle 1 APPLIC TOPICAL ×2 (09:25→22:00)
[2024-10-25] MEDS: Polyethylene Glycol 3350 17 GM PACKET PO (09:25)
[2024-10-25] MEDS: Senna/Docusate Sodium 1 Tablet 2 TABLET PO ×2 (09:25→22:00)
[2024-10-25] MEDS: Glycerin/Hypromellose/PEG400 15 ml Bottle 2 DRP EACH EYE (09:27)
[2024-10-25 09:33] VITALS: BP 122/57; PULSE 86; O2SAT 97
[2024-10-25 16:00] VITALS: RESP 21; TEMP 37.5
[2024-10-25] MEDS: oxyCODONE 5 MG Tablet PO (21:59)
[2024-10-25] MEDS: Amitriptyline 25 MG Tablet PO (22:00)
[2024-10-25] MEDS: MELATONIN 10 MG TABLET PO (22:00)
[2024-10-26] MEDS: Enoxaparin 40 MG/0.4 ML Syringe SC (04:57)
[2024-10-26] MEDS: Acetaminophen 500 MG Tablet PO ×3 (04:57→21:59)
[2024-10-26 05:37] LABS: Absolute Lymphocyte Count 0.81 X10^3/uL (0.83-4.51); Absolute Neutrophil Count 4.7 X10^3/uL (2.0-7.7); Basophil# 0.07 X10^3/uL; Basophil% 1.1 % (0-1); Eosinophil# 0.16 X10^3/uL; Eosinophils% 2.4 % (0-5); Hematocrit 27.7 % (37-47); Hemoglobin 8.5 g/dL (12.0-15.0); Lymphocyte # 0.81 X10^3/ul (0.83-4.51); Lymphocyte % 12.3 % (19-41); Mean Corp Hgb Conc 30.7 g/dL (32-36); Mean Corpuscular Hgb 29.5 pg (27.0-32.0); Mean Corpuscular Volume 96.2 fL (81-99); Mean Platelet Vol. 9.4 fl (6.2-12.0); Monocyte# 0.81 X10^3/uL; Monocyte% 12.3 % (0-10); NRBC Flagged by Analyzer 0 % (0-5); Neutrophil # 4.65 X10^3/uL (2.7-7.7); Neutrophil % 70.7 % (47-70); Platelet Count 492 K/mm3 (150-450); RBC Distribution Width CV 15.4 % (11.6-14.6); RBC Distribution Width SD 54.4 fl (35.1-43.9); Red Blood Count 2.88 M/mm3 (4.2-5.4); White Blood Count 6.6 K/mm3 (4.4-11.0)
[2024-10-26 06:00] LABS: Anion Gap 3 (5-15); BUN 9 mg/dL (7-18); BUN/Creat Ratio 9.6 RATIO (10-20); Chloride 102 mmol/L (98-107); Creatinine, Serum 0.94 mg/dL (0.55-1.02); EST Glomerular Filtration Rate 62 mL/min (>60); Est Glom Filt Rate - Afr Amer 75 mL/min (>60); Estimated Creatinine Clearance 67.13 ml/min; Glucose 100 mg/dL (74-106); Potassium 4.1 mmol/L (3.5-5.1); Sodium Level 136 mmol/L (136-145)
[2024-10-26] MEDS: Polyethylene Glycol 3350 17 GM PACKET PO (09:20)
[2024-10-26] MEDS: Nystatin Powder 15gm Bottle 1 APPLIC TOPICAL ×2 (09:21→22:01)
[2024-10-26] MEDS: Iron Polysaccharide Complex 150 MG CAPSULE PO (09:21)
[2024-10-26] MEDS: SimETHICONE 80 MG Chewable Tablet PO ×3 (09:21→19:00)
[2024-10-26] MEDS: Senna/Docusate Sodium 1 Tablet 2 TABLET PO ×2 (09:21→21:59)
[2024-10-26] MEDS: Glycerin/Hypromellose/PEG400 15 ml Bottle 2 DRP EACH EYE ×2 (09:22→21:59)
[2024-10-26 09:44] VITALS: BP 129/57; PULSE 85; O2SAT 95
[2024-10-26 11:00] VITALS: PULSE 85; RESP 18; O2SAT 95
[2024-10-26] MEDS: Tuberculin,Purif.prot.deriv. 50 TU/ML Vial 0.1 ML ID (12:40)
--- NOTE | 2024-10-26 13:54 | WOUNDNOTE ---
wound photo: right bates
--- NOTE | 2024-10-26 13:54 | WOUNDNOTE ---
wound photo: right knee
[2024-10-26] MEDS: MELATONIN 10 MG TABLET PO (21:59)
[2024-10-26] MEDS: Amitriptyline 25 MG Tablet PO (21:59)
[2024-10-27] MEDS: oxyCODONE 5 MG Tablet PO ×2 (00:06→22:44)
--- NOTE | 2024-10-27 00:14 | NURSING ---
Patient called out and asked for her nurse. This nurse responded and patient stated, Did I get my oxy tonight? I'm just feeling so on edge. This nurse explained that oxycodone was not administered because the patient stated she was having no pain upon initial assessment. This nurse also explained oxycodone is not used for anxiety and is only intended for pain not for anxiety. Patient then stated, well I am having back pain this nurse then asked to rate her back pain on a scale of 1-10 with 1 being the lowest and 10 being the worst pain, patient then stated, well I guess it's a 6 this nurse then administered PRN 5mg oxycodone as ordered for pain on a scale of 6-10. This nurse explained again that the patient has PRN Ativan ordered for insomnia and anxiety and would likely relieve the on edge feeling. Patient refused to take Ativan and stated, I just know when I take the oxy I can feel my whole body start to calm down and then I can go to sleep. This nurse attempted to educate patient on proper pain medication use, patient was not willing to discuss any further.
[2024-10-27] MEDS: Acetaminophen 500 MG Tablet PO ×3 (05:35→22:40)
[2024-10-27] MEDS: Enoxaparin 40 MG/0.4 ML Syringe SC (05:35)
--- NOTE | 2024-10-27 08:42 | NURSING ---
Mysql Database Administrator Note; MDS for 10/25/2024 Complete
[2024-10-27] MEDS: SimETHICONE 80 MG Chewable Tablet PO ×3 (09:14→17:43)
[2024-10-27] MEDS: Iron Polysaccharide Complex 150 MG CAPSULE PO (09:14)
[2024-10-27] MEDS: Nystatin Powder 15gm Bottle 1 APPLIC TOPICAL ×2 (09:15→22:41)
[2024-10-27 16:00] VITALS: BP 147/64; PULSE 81; RESP 18; TEMP 36.3; O2SAT 96
--- NOTE | 2024-10-27 16:55 | CASEMGMT ---
Plan of care meeting held with pt in attendance. PT/OT/ST updated on pt progress with therapy. PT continues to be NWB at this time. SW spoke with pt regarding Medicare benefit and need to save skilled Medicare days for therapy once WBS is obtained. Pt expressing understanding of this. DC date set for 11/03/23. SW provided pt with a list of SNF providers from the [facility] [facility]. Pt reviewed list and preferred provider is [facility]. SW did explain that pt will be private pay at ECF. Pt becoming anxious stating that she does not have the money for this and that the car insurance should pay. Sherry activites coordinator agreed to meet with pt after team meeting to call insurance and discuss reimbursement for ECF. Pt agreeable to this. Referral sent to [facility]. SW will await determination of acceptance. Discharge Date: 11/03/24 Discharge Disposition: [facility], pending acceptance. Private Pay GONSALO Tovar
[2024-10-27] MEDS: Senna/Docusate Sodium 1 Tablet 2 TABLET PO (22:39)
[2024-10-27] MEDS: MELATONIN 10 MG TABLET PO (22:39)
[2024-10-27] MEDS: Amitriptyline 25 MG Tablet PO (22:39)
[2024-10-28] MEDS: Enoxaparin 40 MG/0.4 ML Syringe SC (05:05)
[2024-10-28] MEDS: Acetaminophen 500 MG Tablet PO ×3 (05:05→21:30)
[2024-10-28] MEDS: Iron Polysaccharide Complex 150 MG CAPSULE PO (08:15)
[2024-10-28] MEDS: SimETHICONE 80 MG Chewable Tablet PO ×3 (08:15→17:21)
[2024-10-28] MEDS: Senna/Docusate Sodium 1 Tablet 2 TABLET PO ×2 (08:16→21:31)
[2024-10-28] MEDS: Nystatin Powder 15gm Bottle 1 APPLIC TOPICAL ×2 (08:18→21:31)
[2024-10-28] MEDS: oxyCODONE 5 MG Tablet PO ×2 (13:31→21:33)
[2024-10-28 14:48] VITALS: BP 144/65; PULSE 83; RESP 16; TEMP 36.4; O2SAT 94
[2024-10-28] MEDS: Glycerin/Hypromellose/PEG400 15 ml Bottle 2 DRP EACH EYE (17:21)
[2024-10-28] MEDS: MELATONIN 10 MG TABLET PO (21:30)
[2024-10-28] MEDS: Amitriptyline 25 MG Tablet PO (21:30)
[2024-10-29] MEDS: Enoxaparin 40 MG/0.4 ML Syringe SC (04:28)
[2024-10-29] MEDS: Acetaminophen 500 MG Tablet PO ×3 (04:28→20:17)
[2024-10-29] MEDS: Polyethylene Glycol 3350 17 GM PACKET PO (08:02)
[2024-10-29] MEDS: Iron Polysaccharide Complex 150 MG CAPSULE PO (08:02)
[2024-10-29] MEDS: SimETHICONE 80 MG Chewable Tablet PO ×3 (08:02→17:52)
[2024-10-29] MEDS: Ergocalciferol 1.25 MG (50, 000 UNIT) Capsule PO (08:03)
[2024-10-29] MEDS: Senna/Docusate Sodium 1 Tablet 2 TABLET PO ×2 (08:03→20:18)
[2024-10-29] MEDS: Nystatin Powder 15gm Bottle 1 APPLIC TOPICAL ×2 (08:06→20:20)
[2024-10-29 12:18] VITALS: BP 160/69; PULSE 82; RESP 20; TEMP 36.8; O2SAT 96
[2024-10-29] MEDS: Glycerin/Hypromellose/PEG400 15 ml Bottle 2 DRP EACH EYE (13:16)
[2024-10-29] MEDS: Amitriptyline 25 MG Tablet PO (20:18)
[2024-10-29] MEDS: MELATONIN 10 MG TABLET PO (20:18)
[2024-10-29] MEDS: oxyCODONE 5 MG Tablet PO (20:18)
[2024-10-30] MEDS: Enoxaparin 40 MG/0.4 ML Syringe SC (05:57)
[2024-10-30] MEDS: Acetaminophen 500 MG Tablet PO ×3 (05:57→21:57)
[2024-10-30] MEDS: Iron Polysaccharide Complex 150 MG CAPSULE PO (08:22)
[2024-10-30] MEDS: Polyethylene Glycol 3350 17 GM PACKET PO (08:22)
[2024-10-30] MEDS: Senna/Docusate Sodium 1 Tablet 2 TABLET PO ×2 (08:22→21:57)
[2024-10-30] MEDS: SimETHICONE 80 MG Chewable Tablet PO ×3 (08:22→17:42)
[2024-10-30] MEDS: Nystatin Powder 15gm Bottle 1 APPLIC TOPICAL ×2 (08:27→21:59)
--- NOTE | 2024-10-30 09:40 | CASEMGMT ---
Social Work SW messaged WVM via [employer] to follow up on the referral. The referral is still being reviewed. TONYA BaumannW
[2024-10-30 11:29] VITALS: BP 137/66; PULSE 86; RESP 16; TEMP 36.1; O2SAT 95
--- NOTE | 2024-10-30 11:36 | MDS.RN ---
Information for the MDS was obtained from review of the clinical record, interview of resident, staff, and direct observation of resident?s care.
--- NOTE | 2024-10-30 13:26 | WOUNDNOTE ---
wound photo: right knee
--- NOTE | 2024-10-30 13:27 | WOUNDNOTE ---
wound photo: right lower leg
[2024-10-30] MEDS: Magnesium Hydroxide 30 ML UDC PO (14:01)
[2024-10-30 21:30] VITALS: PULSE 84; O2SAT 93
[2024-10-30] MEDS: oxyCODONE 5 MG Tablet PO (21:56)
[2024-10-30] MEDS: Amitriptyline 25 MG Tablet PO (21:56)
[2024-10-30] MEDS: MELATONIN 10 MG TABLET PO (21:56)
[2024-10-31] MEDS: Enoxaparin 40 MG/0.4 ML Syringe SC (06:19)
[2024-10-31] MEDS: Acetaminophen 500 MG Tablet PO ×3 (06:19→21:43)
[2024-10-31 06:39] VITALS: PULSE 83; O2SAT 95
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
[2024-10-31 08:22] VITALS: BP 129/54; PULSE 84; RESP 17; TEMP 36.6; O2SAT 90
[2024-10-31] MEDS: Polyethylene Glycol 3350 17 GM PACKET PO (08:25)
[2024-10-31] MEDS: Iron Polysaccharide Complex 150 MG CAPSULE PO (08:25)
[2024-10-31] MEDS: SimETHICONE 80 MG Chewable Tablet PO ×3 (08:25→18:58)
[2024-10-31] MEDS: Senna/Docusate Sodium 1 Tablet 2 TABLET PO ×2 (08:26→21:43)
[2024-10-31] MEDS: Nystatin Powder 15gm Bottle 1 APPLIC TOPICAL ×2 (08:26→21:45)
[2024-10-31] MEDS: Glycerin/Hypromellose/PEG400 15 ml Bottle 2 DRP EACH EYE ×2 (08:30→15:25)
--- NOTE | 2024-10-31 09:41 | CASEMGMT ---
Addendum entered by Rosalva Pope 10/31/24 15:08: SW phoned Evy at [facility] to inquire further about outcome. IDT is still reviewing clinicals and unsure when an answer will be given. Evy understands if pt needs to puruse another facility d/t time restraints. -- SW spoke with pt at bedside. Visitors present but pt granted permission for this worker to speak with them present. SW educated to above and requested additional SNF choices. Pt requested [facility] and [facility]. SW placed referrals via xaitment. Original Note: Social Work SW sent another message via xaitment to follow up on outcome of referral. Rosalva Pope FUNDING COORDINATOR TOOL SMITH
[2024-10-31] MEDS: oxyCODONE 5 MG Tablet PO ×2 (15:24→21:44)
[2024-10-31] MEDS: Amitriptyline 25 MG Tablet PO (21:43)
[2024-10-31] MEDS: MELATONIN 10 MG TABLET PO (21:43)
[2024-11-01] MEDS: Enoxaparin 40 MG/0.4 ML Syringe SC (06:10)
[2024-11-01] MEDS: Acetaminophen 500 MG Tablet PO ×3 (06:10→22:16)
[2024-11-01] MEDS: Polyethylene Glycol 3350 17 GM PACKET PO (08:03)
[2024-11-01] MEDS: Senna/Docusate Sodium 1 Tablet 2 TABLET PO ×2 (08:03→22:18)
[2024-11-01] MEDS: SimETHICONE 80 MG Chewable Tablet PO ×3 (08:03→17:44)
[2024-11-01] MEDS: Iron Polysaccharide Complex 150 MG CAPSULE PO (08:03)
[2024-11-01] MEDS: Nystatin Powder 15gm Bottle 1 APPLIC TOPICAL ×2 (08:05→22:19)
[2024-11-01] MEDS: oxyCODONE 5 MG Tablet PO ×2 (10:48→23:02)
[2024-11-01] MEDS: Glycerin/Hypromellose/PEG400 15 ml Bottle 2 DRP EACH EYE (13:31)
[2024-11-01 15:46] VITALS: BP 136/61; PULSE 86; RESP 15; TEMP 37.1; O2SAT 94
[2024-11-01] MEDS: Amitriptyline 25 MG Tablet PO (22:17)
[2024-11-01] MEDS: MELATONIN 10 MG TABLET PO (22:17)
[2024-11-02] MEDS: Acetaminophen 500 MG Tablet PO ×3 (05:26→22:02)
[2024-11-02] MEDS: Enoxaparin 40 MG/0.4 ML Syringe SC (05:27)
[2024-11-02 06:00] LABS: Absolute Lymphocyte Count 0.78 X10^3/uL (0.83-4.51); Basophil# 0.08 X10^3/uL; Basophil% 1.6 % (0-1); Eosinophil# 0.46 X10^3/uL; Eosinophils% 8.9 % (0-5); Hematocrit 27.8 % (37-47); Hemoglobin 8.6 g/dL (12.0-15.0); Lymphocyte # 0.78 X10^3/ul (0.83-4.51); Lymphocyte % 15.1 % (19-41); Mean Corp Hgb Conc 30.9 g/dL (32-36); Mean Corpuscular Hgb 29.6 pg (27.0-32.0); Mean Corpuscular Volume 95.5 fL (81-99); Monocyte# 0.76 X10^3/uL; Monocyte% 14.8 % (0-10); NRBC Flagged by Analyzer 0 % (0-5); Neutrophil # 3.04 X10^3/uL (2.7-7.7); Platelet Count 430 K/mm3 (150-450); RBC Distribution Width CV 15.9 % (11.6-14.6); RBC Distribution Width SD 55.8 fl (35.1-43.9); Red Blood Count 2.91 M/mm3 (4.2-5.4); White Blood Count 5.2 K/mm3 (4.4-11.0)
[2024-11-02 06:21] LABS: Anion Gap 5 (5-15); BUN 19 mg/dL (7-18); BUN/Creat Ratio 21.3 RATIO (10-20); Calcium,Total 9.3 mg/dL (8.5-10.1); Chloride 103 mmol/L (98-107); Creatinine, Serum 0.89 mg/dL (0.55-1.02); EST Glomerular Filtration Rate 65 mL/min (>60); Est Glom Filt Rate - Afr Amer 79 mL/min (>60); Glucose 102 mg/dL (74-106); Potassium 3.8 mmol/L (3.5-5.1); Sodium Level 136 mmol/L (136-145)
[2024-11-02] MEDS: Senna/Docusate Sodium 1 Tablet 2 TABLET PO ×2 (08:55→22:02)
[2024-11-02] MEDS: SimETHICONE 80 MG Chewable Tablet PO ×3 (08:56→18:08)
[2024-11-02] MEDS: Iron Polysaccharide Complex 150 MG CAPSULE PO (08:56)
[2024-11-02] MEDS: Nystatin Powder 15gm Bottle 1 APPLIC TOPICAL ×2 (08:56→22:04)
[2024-11-02] MEDS: Polyethylene Glycol 3350 17 GM PACKET PO (08:56)
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
[2024-11-02 11:30] VITALS: BP 141/57; PULSE 82; RESP 16; TEMP 36.8; O2SAT 94
[2024-11-02] MEDS: Glycerin/Hypromellose/PEG400 15 ml Bottle 2 DRP EACH EYE (13:16)
[2024-11-02] MEDS: oxyCODONE 5 MG Tablet PO ×2 (15:50→22:06)
[2024-11-02] MEDS: Amitriptyline 25 MG Tablet PO (22:02)
[2024-11-02] MEDS: MELATONIN 10 MG TABLET PO (22:02)
[2024-11-03] MEDS: Acetaminophen 500 MG Tablet PO (05:56)
[2024-11-03] MEDS: Enoxaparin 40 MG/0.4 ML Syringe SC (05:56)
--- NOTE | 2024-11-03 08:33 | NURSING ---
Returned residents wallet and eye drops to her from lock box.
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
[2024-11-03] MEDS: Iron Polysaccharide Complex 150 MG CAPSULE PO (09:19)
[2024-11-03] MEDS: Senna/Docusate Sodium 1 Tablet 2 TABLET PO (09:19)
[2024-11-03] MEDS: Nystatin Powder 15gm Bottle 1 APPLIC TOPICAL (09:19)
[2024-11-03] MEDS: Polyethylene Glycol 3350 17 GM PACKET PO (09:19)
[2024-11-03] MEDS: SimETHICONE 80 MG Chewable Tablet PO (09:19)
[2024-11-03 11:24] VITALS: BP 136/62; PULSE 80; RESP 14; TEMP 36.5; O2SAT 96
== END 2024-11-03 11:35 | disposition intermediate care facility (04) | DRG 561 ==
PROVIDERS: Admitting Provider Family Medicine Geriatric Medicine; PCP Nurse Practitioner Family; Referring Provider Family Medicine Geriatric Medicine; Visit Provider Family Medicine Geriatric Medicine
DX: S82.101D Unspecified fracture of upper end of right tibia, subsequent encounter for closed fracture with routine healing (principal); B35.4 Tinea corporis; F32.A Depression, unspecified; F41.9 Anxiety disorder, unspecified; E55.9 Vitamin D deficiency, unspecified; M19.90 Unspecified osteoarthritis, unspecified site; S82.831D Other fracture of upper and lower end of right fibula, subsequent encounter for closed fracture with routine healing; M97.11XD Periprosthetic fracture around internal prosthetic right knee joint, subsequent encounter; Z79.899 Other long term (current) drug therapy; Z79.01 Long term (current) use of anticoagulants; V89.2XXD Person injured in unspecified motor-vehicle accident, traffic, subsequent encounter
CPT/HCPCS: 36415; 74018; 80048; 85014; 85018; 85025; 87811; 97110; 97162; 97166; 97530; 97535; 97802

== ENCOUNTER → 2024-11-07 05:45 | Outpatient (REF) | payer MEDICARE, OTHER, SELFPAY ==
[2024-11-07 08:25] LABS: Absolute Lymphocyte Count 0.51 X10^3/uL (0.83-4.51); Absolute Neutrophil Count 2.9 X10^3/uL (2.0-7.7); Basophil# 0.09 X10^3/uL; Basophil% 1.9 % (0-1); Eosinophil# 0.51 X10^3/uL; Eosinophils% 10.9 % (0-5); Hematocrit 29.6 % (37-47); Hemoglobin 9.2 g/dL (12.0-15.0); Lymphocyte # 0.51 X10^3/ul (0.83-4.51); Lymphocyte % 10.9 % (19-41); Mean Corp Hgb Conc 31.1 g/dL (32-36); Mean Corpuscular Hgb 30.2 pg (27.0-32.0); Monocyte# 0.67 X10^3/uL; Monocyte% 14.3 % (0-10); NRBC Flagged by Analyzer 0 % (0-5); Neutrophil % 61.6 % (47-70); POSITIVE DIFFERENTIAL YES; Platelet Count 340 K/mm3 (150-450); RBC Distribution Width CV 16.1 % (11.6-14.6); RBC Distribution Width SD 57.8 fl (35.1-43.9); Red Blood Count 3.05 M/mm3 (4.2-5.4); White Blood Count 4.7 K/mm3 (4.4-11.0)
[2024-11-07 08:38] LABS: Vitamin D,25 Hydroxy 62.6 ng/mL
[2024-11-07 08:39] LABS: ALB/GLOB Ratio 0.8 RATIO (0.9-2.4); AST(SGOT) 13 U/L (15-37); Alanine Aminotransfer ALT/SGPT 8 U/L (13-56); Albumin, Serum 2.6 g/dL (3.2-5.0); Alkaline Phosphatase 73 U/L (45-117); Anion Gap 5 (5-15); BUN 11 mg/dL (7-18); BUN/Creat Ratio 13.1 RATIO (10-20); Calcium,Total 9.1 mg/dL (8.5-10.1); Chloride 104 mmol/L (98-107); Creatinine, Serum 0.84 mg/dL (0.55-1.02); EST Glomerular Filtration Rate 70 mL/min (>60); Est Glom Filt Rate - Afr Amer 85 mL/min (>60); Globulin 3.3 g/dL (2.2-4.2); Glucose 92 mg/dL (74-106); Potassium 3.8 mmol/L (3.5-5.1); Protein, Total 5.9 g/dL (6.4-8.2); Sodium Level 138 mmol/L (136-145)
== END ==
LOC: OLS.WHLTCC 05:45
PROVIDERS: PCP Nurse Practitioner Family; Referring Provider Internal Medicine; Visit Provider Internal Medicine
DX: E55.9 Vitamin D deficiency, unspecified (principal); G47.00 Insomnia, unspecified; H04.129 Dry eye syndrome of unspecified lacrimal gland; K59.00 Constipation, unspecified; M19.90 Unspecified osteoarthritis, unspecified site; R53.81 Other malaise
CPT/HCPCS: 36415; 80053; 82306; 85025

== ENCOUNTER → 2024-11-07 15:00 | Outpatient (REF) | payer MEDICARE, OTHER, SELFPAY ==
[2024-11-08 06:51] LABS: Mucous, Urine 0 SEEN /hpf (<or=2+); Red Blood Cells-Urine 0 SEEN /hpf (0-5)
[2024-11-08 08:38] LABS: Color, Urine Yellow (Yellow); Glucose, Dipstick Normal (Normal); Ketone-Dipstick Negative (Negative); Leukocyte Esterase-Dipstick 500 /ul (Negative); Nitrite-Dipstick Positive (Negative); Occult Blood-Urine 10 /ul (Negative); Protein-Dipstick 15 mg/dl (Negative); Urine Bilirubin Dipstick Negative (Negative); Urine Clarity Sl. Cloudy (Clear); Urine Urobilinogen Normal (Normal)
[2024-11-08 09:13] LABS: Bacteria 1+ /hpf (None Seen); Squamous Epithelial Cells - UA 0-5 SEEN /hpf (5-10); Triple Phosphate Crystals Ur 2+ /hpf (<or=1+)
[2024-11-08 09:14] LABS: White Blood Cells 0-5 SEEN /hpf (0-5)
== END ==
LOC: OLS.WHLTCC 15:00
PROVIDERS: PCP Nurse Practitioner Family; Visit Provider Internal Medicine
DX: R30.0 Dysuria (principal)
CPT/HCPCS: 81001; 87077; 87086; 87088; 87186

== ENCOUNTER → 2024-11-20 05:00 | Outpatient (REF) | payer MEDICARE, OTHER, SELFPAY ==
[2024-11-20 10:05] LABS: Absolute Lymphocyte Count 0.76 X10^3/uL (0.83-4.51); Basophil# 0.09 X10^3/uL; Basophil% 1.8 % (0-1); Eosinophil# 0.63 X10^3/uL; Eosinophils% 12.3 % (0-5); Hematocrit 31.5 % (37-47); Hemoglobin 9.6 g/dL (12.0-15.0); Lymphocyte # 0.76 X10^3/ul (0.83-4.51); Lymphocyte % 14.8 % (19-41); Mean Corp Hgb Conc 30.5 g/dL (32-36); Mean Corpuscular Hgb 29.5 pg (27.0-32.0); Mean Corpuscular Volume 96.9 fL (81-99); Mean Platelet Vol. 11.3 fl (6.2-12.0); Monocyte# 0.63 X10^3/uL; Monocyte% 12.3 % (0-10); NRBC Flagged by Analyzer 0 % (0-5); Neutrophil % 58.4 % (47-70); Platelet Count 309 K/mm3 (150-450); RBC Distribution Width SD 57.6 fl (35.1-43.9); Red Blood Count 3.25 M/mm3 (4.2-5.4); White Blood Count 5.1 K/mm3 (4.4-11.0)
[2024-11-20 10:16] LABS: Anion Gap 4 (5-15); BUN 10 mg/dL (7-18); BUN/Creat Ratio 10.8 RATIO (10-20); Calcium,Total 9.5 mg/dL (8.5-10.1); Chloride 105 mmol/L (98-107); Creatinine, Serum 0.92 mg/dL (0.55-1.02); EST Glomerular Filtration Rate 63 mL/min (>60); Est Glom Filt Rate - Afr Amer 76 mL/min (>60); Glucose 93 mg/dL (74-106); Potassium 3.9 mmol/L (3.5-5.1); Sodium Level 139 mmol/L (136-145)
== END ==
LOC: OLS.WHLTCC 05:00
PROVIDERS: PCP Nurse Practitioner Family; Visit Provider Internal Medicine
DX: R48.8 Other symbolic dysfunctions (principal)
CPT/HCPCS: 36415; 80048; 85025

== ENCOUNTER → 2024-11-27 04:00 | Outpatient (REF) | payer MEDICARE, OTHER, SELFPAY ==
[2024-11-27 08:06] LABS: Absolute Lymphocyte Count 0.72 X10^3/uL (0.83-4.51); Absolute Neutrophil Count 2.2 X10^3/uL (2.0-7.7); Basophil# 0.07 X10^3/uL; Basophil% 1.7 % (0-1); Eosinophil# 0.47 X10^3/uL; Eosinophils% 11.6 % (0-5); Hematocrit 31.2 % (37-47); Hemoglobin 9.4 g/dL (12.0-15.0); Lymphocyte # 0.72 X10^3/ul (0.83-4.51); Lymphocyte % 17.8 % (19-41); Mean Corp Hgb Conc 30.1 g/dL (32-36); Mean Corpuscular Hgb 29.2 pg (27.0-32.0); Mean Corpuscular Volume 96.9 fL (81-99); Mean Platelet Vol. 11.9 fl (6.2-12.0); Monocyte% 14.9 % (0-10); NRBC Flagged by Analyzer 0 % (0-5); Neutrophil # 2.17 X10^3/uL (2.7-7.7); Neutrophil % 53.8 % (47-70); Platelet Count 325 K/mm3 (150-450); RBC Distribution Width CV 15.9 % (11.6-14.6); RBC Distribution Width SD 56.1 fl (35.1-43.9); Red Blood Count 3.22 M/mm3 (4.2-5.4)
[2024-11-27 08:27] LABS: Anion Gap 6 (5-15); BUN 11 mg/dL (7-18); BUN/Creat Ratio 10.8 RATIO (10-20); Calcium,Total 9.1 mg/dL (8.5-10.1); Chloride 105 mmol/L (98-107); Creatinine, Serum 1.02 mg/dL (0.55-1.02); EST Glomerular Filtration Rate 56 mL/min (>60); Est Glom Filt Rate - Afr Amer 68 mL/min (>60); Glucose 88 mg/dL (74-106); Potassium 3.9 mmol/L (3.5-5.1); Sodium Level 138 mmol/L (136-145)
== END ==
LOC: OLS.WHLTCC 04:00
PROVIDERS: PCP Nurse Practitioner Family; Referring Provider Internal Medicine; Visit Provider Internal Medicine
DX: R48.8 Other symbolic dysfunctions (principal)
CPT/HCPCS: 36415; 80048; 85025

== ENCOUNTER → 2024-12-04 05:00 | Outpatient (REF) | payer MEDICARE, OTHER, SELFPAY ==
[2024-12-04 08:57] LABS: Absolute Lymphocyte Count 0.72 X10^3/uL (0.83-4.51); Absolute Neutrophil Count 2.2 X10^3/uL (2.0-7.7); Basophil# 0.07 X10^3/uL; Basophil% 1.7 % (0-1); Eosinophil# 0.42 X10^3/uL; Eosinophils% 10.3 % (0-5); Hematocrit 31.6 % (37-47); Hemoglobin 9.7 g/dL (12.0-15.0); Lymphocyte # 0.72 X10^3/ul (0.83-4.51); Lymphocyte % 17.6 % (19-41); Mean Corp Hgb Conc 30.7 g/dL (32-36); Mean Corpuscular Hgb 29.7 pg (27.0-32.0); Mean Corpuscular Volume 96.6 fL (81-99); Mean Platelet Vol. 11.9 fl (6.2-12.0); Monocyte# 0.63 X10^3/uL; Monocyte% 15.4 % (0-10); NRBC Flagged by Analyzer 0 % (0-5); Neutrophil # 2.24 X10^3/uL (2.7-7.7); Neutrophil % 54.8 % (47-70); Platelet Count 325 K/mm3 (150-450); RBC Distribution Width CV 15.6 % (11.6-14.6); RBC Distribution Width SD 55.8 fl (35.1-43.9); Red Blood Count 3.27 M/mm3 (4.2-5.4); White Blood Count 4.1 K/mm3 (4.4-11.0)
[2024-12-04 09:12] LABS: Anion Gap 7 (5-15); BUN 11 mg/dL (7-18); BUN/Creat Ratio 11.1 RATIO (10-20); Chloride 105 mmol/L (98-107); Creatinine, Serum 0.99 mg/dL (0.55-1.02); EST Glomerular Filtration Rate 58 mL/min (>60); Est Glom Filt Rate - Afr Amer 70 mL/min (>60); Glucose 85 mg/dL (74-106); Potassium 3.6 mmol/L (3.5-5.1); Sodium Level 138 mmol/L (136-145)
== END ==
LOC: OLS.WHLTCC 05:00
PROVIDERS: PCP Nurse Practitioner Family; Visit Provider Internal Medicine
DX: R48.8 Other symbolic dysfunctions (principal)
CPT/HCPCS: 36415; 80048; 85025

== ENCOUNTER → 2024-12-11 05:00 | Outpatient (REF) | payer MEDICARE, OTHER, SELFPAY ==
[2024-12-11 08:50] LABS: Absolute Lymphocyte Count 0.61 X10^3/uL (0.83-4.51); Absolute Neutrophil Count 2.6 X10^3/uL (2.0-7.7); Basophil# 0.05 X10^3/uL; Basophil% 1.2 % (0-1); Eosinophil# 0.34 X10^3/uL; Hematocrit 31.2 % (37-47); Hemoglobin 9.7 g/dL (12.0-15.0); Lymphocyte # 0.61 X10^3/ul (0.83-4.51); Lymphocyte % 14.3 % (19-41); Mean Corp Hgb Conc 31.1 g/dL (32-36); Mean Corpuscular Hgb 29.8 pg (27.0-32.0); Mean Corpuscular Volume 95.7 fL (81-99); Mean Platelet Vol. 11.5 fl (6.2-12.0); Monocyte# 0.61 X10^3/uL; Monocyte% 14.3 % (0-10); NRBC Flagged by Analyzer 0 % (0-5); Neutrophil # 2.64 X10^3/uL (2.7-7.7); Platelet Count 287 K/mm3 (150-450); RBC Distribution Width CV 15.1 % (11.6-14.6); RBC Distribution Width SD 53.5 fl (35.1-43.9); Red Blood Count 3.26 M/mm3 (4.2-5.4); White Blood Count 4.3 K/mm3 (4.4-11.0)
[2024-12-11 09:13] LABS: Anion Gap 6 (5-15); BUN 11 mg/dL (7-18); BUN/Creat Ratio 11.8 RATIO (10-20); Calcium,Total 9.1 mg/dL (8.5-10.1); Chloride 106 mmol/L (98-107); Creatinine, Serum 0.93 mg/dL (0.55-1.02); EST Glomerular Filtration Rate 62 mL/min (>60); Est Glom Filt Rate - Afr Amer 75 mL/min (>60); Glucose 84 mg/dL (74-106); Potassium 3.7 mmol/L (3.5-5.1); Sodium Level 140 mmol/L (136-145)
== END ==
LOC: OLS.WHLTCC 05:00
PROVIDERS: PCP Nurse Practitioner Family; Visit Provider Internal Medicine
DX: R48.8 Other symbolic dysfunctions (principal)
CPT/HCPCS: 36415; 80048; 85025

== ENCOUNTER → 2024-12-13 12:00 | Outpatient (REF) | payer MEDICARE, OTHER, SELFPAY ==
[2024-12-13 06:40] LABS: Color, Urine Yellow (Yellow); Glucose, Dipstick Normal (Normal); Ketone-Dipstick Negative (Negative); Leukocyte Esterase-Dipstick 500 /ul (Negative); Nitrite-Dipstick Negative (Negative); Occult Blood-Urine 50 /ul (Negative); Protein-Dipstick 30 mg/dl (Negative); Specific Gravity, Urine 1.015 (1.002-1.030); Urine Bilirubin Dipstick Negative (Negative); Urine Clarity Sl. Cloudy (Clear); Urine Urobilinogen Normal (Normal)
== END ==
LOC: OLS.WHLTCC 12:00
PROVIDERS: PCP Nurse Practitioner Family; Visit Provider Internal Medicine
DX: M97.11XD Periprosthetic fracture around internal prosthetic right knee joint, subsequent encounter (principal); Z47.89 Encounter for other orthopedic aftercare; V89.2XXD Person injured in unspecified motor-vehicle accident, traffic, subsequent encounter; N39.0 Urinary tract infection, site not specified
CPT/HCPCS: 81002

== ENCOUNTER → 2024-12-25 05:00 | Outpatient (REF) | payer MEDICARE, OTHER, SELFPAY ==
[2024-12-25 06:32] LABS: Absolute Lymphocyte Count 0.58 X10^3/uL (0.83-4.51); Absolute Neutrophil Count 2.4 X10^3/uL (2.0-7.7); Basophil# 0.06 X10^3/uL; Basophil% 1.5 % (0-1); Eosinophil# 0.28 X10^3/uL; Eosinophils% 7.1 % (0-5); Hematocrit 31.8 % (37-47); Hemoglobin 9.5 g/dL (12.0-15.0); Lymphocyte # 0.58 X10^3/ul (0.83-4.51); Lymphocyte % 14.8 % (19-41); Mean Corp Hgb Conc 29.9 g/dL (32-36); Mean Corpuscular Hgb 28.9 pg (27.0-32.0); Mean Corpuscular Volume 96.7 fL (81-99); Mean Platelet Vol. 11.3 fl (6.2-12.0); Monocyte# 0.64 X10^3/uL; Monocyte% 16.3 % (0-10); NRBC Flagged by Analyzer 0 % (0-5); Neutrophil # 2.35 X10^3/uL (2.7-7.7); POSITIVE DIFFERENTIAL YES; Platelet Count 287 K/mm3 (150-450); RBC Distribution Width SD 53.2 fl (35.1-43.9); Red Blood Count 3.29 M/mm3 (4.2-5.4); White Blood Count 3.9 K/mm3 (4.4-11.0)
[2024-12-25 06:55] LABS: Anion Gap 7 (5-15); BUN 13 mg/dL (7-18); BUN/Creat Ratio 13.9 RATIO (10-20); Calcium,Total 9.2 mg/dL (8.5-10.1); Chloride 107 mmol/L (98-107); Creatinine, Serum 0.93 mg/dL (0.55-1.02); EST Glomerular Filtration Rate 62 mL/min (>60); Est Glom Filt Rate - Afr Amer 75 mL/min (>60); Glucose 80 mg/dL (74-106); Sodium Level 141 mmol/L (136-145)
== END ==
LOC: OLS.WHLTCC 05:00
PROVIDERS: PCP Nurse Practitioner Family; Visit Provider Internal Medicine
DX: R48.8 Other symbolic dysfunctions (principal)
CPT/HCPCS: 36415; 80048; 85025

== ENCOUNTER → 2025-01-01 | Outpatient (REF) | payer MEDICARE, OTHER, SELFPAY ==
[2025-01-01 08:00] LABS: Absolute Lymphocyte Count 0.66 X10^3/uL (0.83-4.51); Absolute Neutrophil Count 1.8 X10^3/uL (2.0-7.7); Basophil# 0.06 X10^3/uL; Basophil% 1.8 % (0-1); Eosinophil# 0.26 X10^3/uL; Eosinophils% 7.9 % (0-5); Hematocrit 31.8 % (37-47); Lymphocyte # 0.66 X10^3/ul (0.83-4.51); Lymphocyte % 20.1 % (19-41); Mean Corp Hgb Conc 31.4 g/dL (32-36); Mean Corpuscular Hgb 29.6 pg (27.0-32.0); Mean Corpuscular Volume 94.1 fL (81-99); Mean Platelet Vol. 11.8 fl (6.2-12.0); Monocyte# 0.51 X10^3/uL; Monocyte% 15.5 % (0-10); NRBC Flagged by Analyzer 0 % (0-5); Neutrophil # 1.79 X10^3/uL (2.7-7.7); Neutrophil % 54.4 % (47-70); Platelet Count 306 K/mm3 (150-450); RBC Distribution Width CV 14.8 % (11.6-14.6); RBC Distribution Width SD 51.2 fl (35.1-43.9); Red Blood Count 3.38 M/mm3 (4.2-5.4); White Blood Count 3.3 K/mm3 (4.4-11.0)
[2025-01-01 08:33] LABS: Anion Gap 12 (5-15); BUN 10 mg/dL (4-19); BUN/Creat Ratio 10.2 RATIO (10-20); Calcium 9.1 mg/dL (7.6-11.0); Carbon Dioxide 24.7 mmol/L (22.0-29.0); Chloride 105 mmol/L (96-108); Creatinine, Serum 1.01 mg/dL (0.70-1.20); EST Glomerular Filtration Rate 58 (>60); Glucose 86 mg/dL (70-99); Potassium 3.7 mmol/L (3.3-5.1); Sodium Level 141 mmol/L (133-145)
== END ==
LOC: OLS.WHLTCC 05:00
PROVIDERS: PCP Nurse Practitioner Family; Visit Provider Internal Medicine
DX: R48.8 Other symbolic dysfunctions (principal)
CPT/HCPCS: 36415; 80048; 85025

== ENCOUNTER → 2025-01-08 | Outpatient (REF) | payer MEDICARE, OTHER, SELFPAY ==
[2025-01-08 06:18] LABS: Basophil# 0.05 X10^3/uL; Basophil% 1.3 % (0-1); Eosinophil# 0.21 X10^3/uL; Eosinophils% 5.6 % (0-5); Hematocrit 32.4 % (37-47); Hemoglobin 10.4 g/dL (12.0-15.0); Lymphocyte % 21.4 % (19-41); Mean Corp Hgb Conc 32.1 g/dL (32-36); Mean Corpuscular Hgb 29.8 pg (27.0-32.0); Mean Corpuscular Volume 92.8 fL (81-99); Mean Platelet Vol. 11.9 fl (6.2-12.0); Monocyte# 0.68 X10^3/uL; Monocyte% 18.2 % (0-10); NRBC Flagged by Analyzer 0 % (0-5); Neutrophil # 1.98 X10^3/uL (2.7-7.7); Neutrophil % 53.2 % (47-70); Platelet Count 290 K/mm3 (150-450); RBC Distribution Width CV 14.7 % (11.6-14.6); RBC Distribution Width SD 49.6 fl (35.1-43.9); Red Blood Count 3.49 M/mm3 (4.2-5.4); White Blood Count 3.7 K/mm3 (4.4-11.0)
[2025-01-08 07:43] LABS: Anion Gap 12 (5-15); BUN 8 mg/dL (4-19); BUN/Creat Ratio 9.6 RATIO (10-20); Carbon Dioxide 24.5 mmol/L (21.0-32.0); Chloride 104 mmol/L (98-108); Creatinine, Serum 0.88 mg/dL (0.70-1.20); EST Glomerular Filtration Rate 68 (>60); Glucose 86 mg/dL (70-99); Potassium 3.6 mmol/L (3.3-5.1); Sodium Level 141 mmol/L (133-145)
== END ==
LOC: OLS.WHLTCC 05:00
PROVIDERS: PCP Nurse Practitioner Family; Visit Provider Internal Medicine
DX: R48.8 Other symbolic dysfunctions (principal)
CPT/HCPCS: 36415; 80048; 85025

== ENCOUNTER → 2025-01-15 | Outpatient (REF) | payer MEDICARE, OTHER, SELFPAY ==
[2025-01-15 08:03] LABS: Absolute Neutrophil Count 2.6 X10^3/uL (2.0-7.7); Basophil# 0.05 X10^3/uL; Basophil% 1.2 % (0-1); Eosinophil# 0.18 X10^3/uL; Eosinophils% 4.4 % (0-5); Hematocrit 34.8 % (37-47); Hemoglobin 10.8 g/dL (12.0-15.0); Lymphocyte % 17.1 % (19-41); Mean Corpuscular Hgb 29.3 pg (27.0-32.0); Mean Corpuscular Volume 94.6 fL (81-99); Mean Platelet Vol. 12.4 fl (6.2-12.0); Monocyte# 0.55 X10^3/uL; Monocyte% 13.4 % (0-10); NRBC Flagged by Analyzer 0 % (0-5); Neutrophil # 2.61 X10^3/uL (2.7-7.7); Neutrophil % 63.7 % (47-70); Platelet Count 302 K/mm3 (150-450); RBC Distribution Width CV 14.6 % (11.6-14.6); RBC Distribution Width SD 50.7 fl (35.1-43.9); Red Blood Count 3.68 M/mm3 (4.2-5.4); White Blood Count 4.1 K/mm3 (4.4-11.0)
[2025-01-15 13:48] LABS: Anion Gap 12 (5-15); BUN 10 mg/dL (4-19); BUN/Creat Ratio 11.2 RATIO (10-20); Calcium,Total 8.9 mg/dL (7.6-11.0); Carbon Dioxide 23.6 mmol/L (21.0-32.0); Chloride 104 mmol/L (98-108); Creatinine, Serum 0.88 mg/dL (0.70-1.20); EST Glomerular Filtration Rate 68 (>60); Glucose 93 mg/dL (70-99); Potassium 3.9 mmol/L (3.3-5.1); Sodium Level 140 mmol/L (133-145)
== END ==
LOC: OLS.WHLTCC 05:00
PROVIDERS: PCP Nurse Practitioner Family; Visit Provider Internal Medicine
DX: R48.8 Other symbolic dysfunctions (principal)
CPT/HCPCS: 36415; 80048; 85025

== ENCOUNTER → 2025-01-22 | Outpatient (REF) | payer MEDICARE, OTHER, SELFPAY ==
[2025-01-22 08:59] LABS: Absolute Lymphocyte Count 0.68 X10^3/uL (0.83-4.51); Absolute Neutrophil Count 2.6 X10^3/uL (2.0-7.7); Basophil# 0.06 X10^3/uL; Basophil% 1.5 % (0-1); Eosinophil# 0.16 X10^3/uL; Eosinophils% 3.9 % (0-5); Hematocrit 34.2 % (37-47); Hemoglobin 10.9 g/dL (12.0-15.0); Lymphocyte # 0.68 X10^3/ul (0.83-4.51); Lymphocyte % 16.5 % (19-41); Mean Corp Hgb Conc 31.9 g/dL (32-36); Mean Corpuscular Hgb 29.5 pg (27.0-32.0); Mean Corpuscular Volume 92.7 fL (81-99); Mean Platelet Vol. 11.6 fl (6.2-12.0); Monocyte# 0.59 X10^3/uL; Monocyte% 14.4 % (0-10); NRBC Flagged by Analyzer 0 % (0-5); Neutrophil # 2.61 X10^3/uL (2.7-7.7); Neutrophil % 63.5 % (47-70); Platelet Count 289 K/mm3 (150-450); RBC Distribution Width CV 15.1 % (11.6-14.6); Red Blood Count 3.69 M/mm3 (4.2-5.4); White Blood Count 4.1 K/mm3 (4.4-11.0)
[2025-01-22 14:39] LABS: Anion Gap 12 (5-15); BUN 9 mg/dL (4-19); BUN/Creat Ratio 9.9 RATIO (10-20); Calcium,Total 9.1 mg/dL (7.6-11.0); Chloride 102 mmol/L (98-108); Creatinine, Serum 0.91 mg/dL (0.70-1.20); EST Glomerular Filtration Rate 65 (>60); Glucose 91 mg/dL (70-99); Potassium 3.3 mmol/L (3.3-5.1); Sodium Level 139 mmol/L (133-145)
== END ==
LOC: OLS.WHLTCC 05:00
PROVIDERS: PCP Nurse Practitioner Family; Visit Provider Internal Medicine
DX: R48.8 Other symbolic dysfunctions (principal); R60.0 Localized edema; M97.11XD Periprosthetic fracture around internal prosthetic right knee joint, subsequent encounter
CPT/HCPCS: 36415; 80048; 85025

== ENCOUNTER → 2025-01-29 | Outpatient (REF) | payer MEDICARE, OTHER, SELFPAY ==
[2025-01-29 09:17] LABS: Absolute Lymphocyte Count 0.64 X10^3/uL (0.83-4.51); Absolute Neutrophil Count 2.1 X10^3/uL (2.0-7.7); Basophil# 0.07 X10^3/uL; Eosinophil# 0.19 X10^3/uL; Eosinophils% 5.3 % (0-5); Hematocrit 31.7 % (37-47); Lymphocyte # 0.64 X10^3/ul (0.83-4.51); Mean Corp Hgb Conc 31.5 g/dL (32-36); Mean Corpuscular Hgb 29.5 pg (27.0-32.0); Mean Corpuscular Volume 93.5 fL (81-99); Mean Platelet Vol. 11.4 fl (6.2-12.0); Monocyte# 0.54 X10^3/uL; Monocyte% 15.2 % (0-10); NRBC Flagged by Analyzer 0 % (0-5); Neutrophil # 2.12 X10^3/uL (2.7-7.7); Neutrophil % 59.5 % (47-70); Platelet Count 280 K/mm3 (150-450); RBC Distribution Width CV 15.3 % (11.6-14.6); RBC Distribution Width SD 53.1 fl (35.1-43.9); Red Blood Count 3.39 M/mm3 (4.2-5.4); White Blood Count 3.6 K/mm3 (4.4-11.0)
[2025-01-29 09:51] LABS: Anion Gap 11 (5-15); BUN 9 mg/dL (4-19); BUN/Creat Ratio 10.3 RATIO (10-20); Calcium,Total 8.6 mg/dL (7.6-11.0); Carbon Dioxide 22.2 mmol/L (21.0-32.0); Chloride 107 mmol/L (98-108); Creatinine, Serum 0.87 mg/dL (0.70-1.20); EST Glomerular Filtration Rate 69 (>60); Glucose 80 mg/dL (70-99); Potassium 3.9 mmol/L (3.3-5.1); Sodium Level 141 mmol/L (133-145)
== END ==
LOC: OLS.WHLTCC 05:00
PROVIDERS: PCP Nurse Practitioner Family; Visit Provider Internal Medicine
DX: R48.8 Other symbolic dysfunctions (principal)
CPT/HCPCS: 36415; 80048; 85025

== ENCOUNTER → 2025-02-05 | Outpatient (REF) | payer MEDICARE, OTHER, SELFPAY ==
[2025-02-05 09:35] LABS: Absolute Lymphocyte Count 0.61 X10^3/uL (0.83-4.51); Absolute Neutrophil Count 1.6 X10^3/uL (2.0-7.7); Basophil# 0.05 X10^3/uL; Basophil% 1.7 % (0-1); Eosinophil# 0.18 X10^3/uL; Hematocrit 33.8 % (37-47); Hemoglobin 10.6 g/dL (12.0-15.0); Lymphocyte # 0.61 X10^3/ul (0.83-4.51); Lymphocyte % 20.2 % (19-41); Mean Corp Hgb Conc 31.4 g/dL (32-36); Mean Corpuscular Hgb 29.5 pg (27.0-32.0); Mean Corpuscular Volume 94.2 fL (81-99); Mean Platelet Vol. 11.5 fl (6.2-12.0); Monocyte# 0.53 X10^3/uL; Monocyte% 17.5 % (0-10); NRBC Flagged by Analyzer 0 % (0-5); Neutrophil # 1.64 X10^3/uL (2.7-7.7); Neutrophil % 54.3 % (47-70); Platelet Count 294 K/mm3 (150-450); RBC Distribution Width CV 15.2 % (11.6-14.6); RBC Distribution Width SD 52.7 fl (35.1-43.9); Red Blood Count 3.59 M/mm3 (4.2-5.4)
[2025-02-05 09:55] LABS: Anion Gap 10 (5-15); BUN 10 mg/dL (4-19); BUN/Creat Ratio 10.4 RATIO (10-20); Calcium,Total 9.1 mg/dL (7.6-11.0); Carbon Dioxide 24.8 mmol/L (21.0-32.0); Chloride 105 mmol/L (98-108); Creatinine, Serum 0.97 mg/dL (0.70-1.20); EST Glomerular Filtration Rate 61 (>60); Glucose 84 mg/dL (70-99); Potassium 3.8 mmol/L (3.3-5.1); Sodium Level 140 mmol/L (133-145)
== END ==
LOC: OLS.WHLTCC 04:00
PROVIDERS: PCP Nurse Practitioner Family; Referring Provider Internal Medicine; Visit Provider Internal Medicine
DX: R48.8 Other symbolic dysfunctions (principal)
CPT/HCPCS: 36415; 80048; 85025

== ENCOUNTER → 2025-06-05 | Outpatient (CLI) | payer MEDICARE, OTHER, SELFPAY ==
--- NOTE | 2025-06-05 15:05 | BI_ITS ---
EXAM: SCRN MAMM (CAD)W/JADEN BILAT DATE: 06/05/2025 CLINICAL HISTORY: F, Age 75 y/o , ANNUAL SCREENING TECHNIQUE: SCRN MAMM (CAD)W/JADEN BILAT COMPARISON: Prior exam(s) were compared. FINDINGS: TISSUE DENSITY: The breasts are heterogeneously dense, which may obscure small masses. Bilateral Breast Mammographic Findings: No suspicious masses, calcifications or other abnormalities are identified. BI/SCRN MAMM (CAD)W/JADEN BILAT IMPRESSION: No mammographic evidence of malignancy in either breast. OVERALL FINAL ASSESSMENT BI-RADS 1: NEGATIVE. RECOMMENDATION: Routine annual follow-up in 1 Year A letter with findings and recommendations will be mailed to the patient. Reading Location: [id number]
== END | disposition home or self-care (01) ==
PROVIDERS: PCP Nurse Practitioner Family; Referring Provider Student in an Organized Health Care Education/Training Program; Visit Provider Student in an Organized Health Care Education/Training Program
DX: Z12.31 Encounter for screening mammogram for malignant neoplasm of breast (principal); Z85.3 Personal history of malignant neoplasm of breast
CPT/HCPCS: 77063; 77067